=== PATIENT | female | born 1960 | race Caucasian/White ===

== ENCOUNTER → 2017-06-22 16:10 | Outpatient (CLI) | payer MEDICAID, SELFPAY ==
[2017-06-22 14:31] VITALS: BP 145/77; BMI 32.1
[2017-06-22 18:29] LABS: Hemoglobin A1c 6.3 % (4.2-6.3)
[2017-06-22 18:31] LABS: Anion Gap 10 (5-15); BUN 12 mg/dL (7-18); BUN/Creat Ratio 14.3 RATIO (10-20); Calcium,Total 9.3 mg/dL (8.5-10.1); Chloride 103 mmol/L (98-107); Creatinine, Serum 0.84 mg/dL (0.55-1.02); EST Glomerular Filtration Rate 75 mL/min (>60); Est Glom Filt Rate - Afr Amer 90 mL/min (>60); Glucose 93 mg/dL (70-110); Potassium 3.7 mmol/L (3.5-5.1); Sodium Level 141 mmol/L (136-145); T4 Free Direct 1.27 ng/dL (0.76-1.46); Thyroid Stim Hormone (TSH) 1.48 uIU/mL (0.358-3.74)
== END ==
PROVIDERS: Family Provider Internal Medicine; PCP Internal Medicine; Visit Provider Internal Medicine
DX: E11.9 Type 2 diabetes mellitus without complications (principal)
CPT/HCPCS: 36415; 80048; 83036; 84439; 84443

== ENCOUNTER 2021-05-14 14:04 | Inpatient (IN) | payer MEDICAID, SELFPAY ==
[2021-05-14] VITALS (9 sets, daily range): BP systolic 97–121; BP diastolic 63–80; PULSE 70–94; RESP 13–24; TEMP 36.1–37.2; O2SAT 96–100; BMI 32.5
--- NOTE | 2021-05-14 15:18 | EX.ED.GENINJ ---
HPI History of Present Illness Chief Complaint: Fall Detail of Chief Complaint: Down 13 steps 10 days ago. Informant: patient and spouse/S.O. Onset/Context/Timing Onset: Days Mechanism/Context: Blunt Injury Location of pain/injuries: Right lower leg, Right ankle, Right foot, Left arm, Left forearm, Left wrist, Left hand, Left lower leg, Left ankle and Left foot Quality of Pain: Sharp Current Severity: Severe Maximum Severity: Severe Associated Symptoms Associated Symptoms: Positive for Parasthesias, Weakness, Loss of function and Inability to ambulate; Negative for Loss of consciousness and Amnesia Narrative Narrative: 60 old female has had multiple brain surgeries in the past of brain aneurysm. States she fell at home down her steps when she stumbled over her 's chair lift. She was carrying towels. This occurred about 10 days ago. She had significant injuries to both lower extremities ankles and feet. But has not been seen until today. She is also complaining of pain to her left forearm, hand and wrist. Denies any LOC or head trauma. Denies any neck pain. She denies being on any blood thinners. Prior similar symptoms: No Recent Illness/Hospitalization: No PFSH PFS Medical History Anemia Anxiety and depression Arthritis Brain aneurysm Chronic back pain COPD (chronic obstructive pulmonary disease) Diabetes Fistula Hepatitis B Migraines Vitamin D deficiency Home Medications pioglitazone 15 mg PO DAILY 10/07/15 [History Last Taken Unknown] cholecalciferol (vitamin D3) 50 mcg (2,000 unit) capsule 2,000 unit PO ONCE 06/22/17 [History Last Taken Unknown] potassium PO 06/22/17 [History Last Taken Unknown] alprazolam 0.25 mg tablet 0.25 mg PO QDAY PRN #14 tab 06/23/17 [Rx Last Taken Unknown] Allergy/AdvReac Type Severity Reaction Status Date / Time ibuprofen Allergy Rash Verified 05/14/21 14:13 Sulfa (Sulfonamide Allergy Unknown Verified 05/14/21 14:13 Antibiotics) Family History (Updated 05/14/21 @ 17:[address] Gio Barrera, ) Mother Breast cancer Cancer bone Anxiety and depression Grandmother Breast cancer Hypertension Father Cancer oral Myocardial infarction Alcoholism Daughter Autism Daughter Bipolar 1 disorder Surgical History History of cholecystectomy Social History Smoking Status: Current every day smoker tobacco type: cigarettes Tobacco: How many years used: 40 alcohol intake: never substance use type: does not use what type of physical activity do you participate in: none ROS ROS ED ROS Narrative Dysuria. Review of Systems ROS Unobtainable: Denies due to encephalopathy Constitutional Constitutional ED: Denies fever(s) or subjective Eyes Eyes: Denies change in vision ENT ENT ED: Denies ear pain Cardiovascular Cardiovascular: Denies chest pain Respiratory/Chest Respiratory/Chest: Denies dyspnea Gastrointestinal Gastrointestinal: Denies abdominal pain, diarrhea, nausea or vomiting Genitourinary Genitourinary ED: Denies dysuria or hematuria Musculoskeletal Musculoskeletal: Reports arthralgias and myalgias Integumentary Denies rash Neurologic Neurologic: Denies headache(s) Psychiatric Psychiatric: Denies depression Endocrine Endocrinology: Denies polyuria Hematologic/Lymphatic Hematologic/Lymphatic: Denies easy bruising Allergic/Immunologic Allergic/Immunologic ED: Denies urticaria EXAM Physical Exam Narrative Exam Narrative: 6-year-old female vital signs stable afebrile. Lying in bed with at bedside. H EENT exam pupils are reactive light extra motions are intact. Face nontender. Dentition intact. Scalp nontender. C-spine nontender. Trachea midline. Lungs clear to auscultation bilaterally. Heart regular rhythm rate about 95 no murmur. Chest wall nontender. Abdomen soft nontender. No bruising. Pelvic girdle intact. Neither hip is shortened or rotated. Both lower extremities from the knees to the feet are swollen and tender. She has limited range of motion of both feet and ankles. She does have tight sensation. There is a large blister and breakdown of the skin over the anterior foot and ankle on the left. Skin is sloughing. Right upper extremity is nontender. Back is nontender. Left upper extremity shoulder is nontender but she is tender at the left forearm wrist and hand. Skins intact. Neurologically she is awake and alert. She is moving all 4 extremities but has limited range of motion with both lower extremities. Const Vital Signs: 05/14/21 14:06 05/14/21 17:17 05/14/21 17:36 Temperature 97 F L 98.9 F Temperature Source Temporal Temporal Pulse Rate 94 77 Pulse Rate [1 (Initial Baseline)] 77 Pulse Rate [2] 70 Pulse Rate [3] 72 Pulse Rate [4] 72 Respiratory Rate 18 15 Respiratory Rate [1 (Initial Baseline)] 15 Respiratory Rate [2] 14 Respiratory Rate [3] 21 H Respiratory Rate [4] 18 Respiratory Effort Normal Non-Labored Respiratory Depth Normal Respiratory Pattern Normal Blood Pressure 113/80 97/64 Blood Pressure [1 (Initial Baseline)] 119/63 Blood Pressure [2] 119/63 Blood Pressure [3] 101/67 Blood Pressure [4] 101/67 Blood Pressure Mean 91 75 Pulse Ox 97 99 Oxygen Delivery Method Room Air Room Air Oxygen Delivery Method [1 (Initial Baseline)] Nasal Cannula Oxygen Delivery Method [2] Nasal Cannula Oxygen Delivery Method [3] Nasal Cannula Oxygen Delivery Method [4] Nasal Cannula Oxygen Flow Rate (L/min) [1 (Initial Baseline)] 2 Oxygen Flow Rate (L/min) [2] 2 Oxygen Flow Rate (L/min) [3] 2 Oxygen Flow Rate (L/min) [4] 2 Fraction of Inspired Oxygen (FIO2) [1 (Initial Baseline)] 100 Fraction of Inspired Oxygen (FIO2) [2] 100 Fraction of Inspired Oxygen (FIO2) [3] 100 05/14/21 17:45 Temperature Temperature Source Pulse Rate 73 Pulse Rate [1 (Initial Baseline)] Pulse Rate [2] Pulse Rate [3] Pulse Rate [4] Respiratory Rate 13 Respiratory Rate [1 (Initial Baseline)] Respiratory Rate [2] Respiratory Rate [3] Respiratory Rate [4] Respiratory Effort Respiratory Depth Respiratory Pattern Blood Pressure 103/74 Blood Pressure [1 (Initial Baseline)] Blood Pressure [2] Blood Pressure [3] Blood Pressure [4] Blood Pressure Mean Pulse Ox 100 Oxygen Delivery Method Nasal Cannula Oxygen Delivery Method [1 (Initial Baseline)] Oxygen Delivery Method [2] Oxygen Delivery Method [3] Oxygen Delivery Method [4] Oxygen Flow Rate (L/min) [1 (Initial Baseline)] Oxygen Flow Rate (L/min) [2] Oxygen Flow Rate (L/min) [3] Oxygen Flow Rate (L/min) [4] Fraction of Inspired Oxygen (FIO2) [1 (Initial Baseline)] Fraction of Inspired Oxygen (FIO2) [2] Fraction of Inspired Oxygen (FIO2) [3] Positive well nourished, well developed and obese; Negative for cachectic, contractures or unkempt General Appearance ED: well developed and NAD; Negative for unkempt, cachectic or contractures Nutritional Appearance: obese; Negative for cachectic HEENT atraumatic; Negative for trauma or tenderness Eyes PERRL and EOMs intact bilaterally Neck full ROM General: Negative for tenderness Chest Wall inspection of chest normal and palpation of chest normal Resp normal respiratory effort and clear to auscultation bilaterally Auscultation: Negative for rales, rhonchi, wheezes or diminished lung sounds GI normal to inspection, nondistended, normoactive bowel sounds, non-tender, non-distended and no masses Inspection: Negative for abdominal distention Auscultation: normoactive bowel sounds Palpation: soft; Negative for tender, guarding or rebound tenderness present Back/Spine normal to inspection and no thoracic nor lumbar tenderness General Back: Negative for CVA tenderness Thoracic Spine / Upper Back: Negative for thoracic spinal tenderness Extremity Negative for normal to inspection or full ROM Extremity Narrative: Bilateral lower extremity edema with tenderness over the lower legs ankles and feet. Large blister of the left lower anterior foot and ankle. With breakdown of the skin. She does have tight sensation in her feet. Tenderness to the left forearm wrist and hand. With swelling also. General Extremety ED: Yes deformity, edema and tenderness General Extremity: deformity and edema Neuro oriented x3 and moves all extremities Sensorium / Orientation: alert, oriented to person, oriented to place and oriented to time; Negative for orientation impaired, lethargic or stuporous Psych mental status grossly normal and thought process normal Appearance: Negative for unkempt Skin no rashes or lesions noted, No no wounds and no jaundice Skin Narrative: Swollen lower extremities below the knees to the toes. Also left forearm. PROC Procedures Upper Extremity Splints Upper Extremity Splint: Orthoglass Splint Fabrication: Fabricated Location: Left Lower Extremity Splints Lower Extremity Splint: Orthoglass Splint Fabrication: Fabricated Location: Left Other Procedures Procedure(s): Conscious sedation using propofol. Total 70 mg given. Patient's vital signs remained stable the entire time as did her pulse ox while on oxygen. She came out of anesthetic well shortly after the procedure of splinting was finished. MDM MDM MDM Narrative Medical decision making narrative: Patient with significant trauma 10 days ago reportedly fell down 13 steps I suspect she may have a broken lower extremities and possibly her left upper extremity or wrist. Amazing that she has been at home for 10 days in this condition. She has significant breakdown of the skin over her left foot and ankle. She will be treated with IV morphine and Zofran multiple x-rays and screening labs are being obtained. For the patient's left distal radius and ulna fracture she was placed in well-padded short arm fiberglass splint by myself. For the left bimalleolar fracture of the ankle she is placed in a well-padded posterior splint. Again there is a severe pressure ulcer on the anterior aspect of the foot. Patient was consciously sedated before I put this on using propofol and tolerated procedure well. She awoke with no difficulties. Vital signs were stable the entire time. Lab Data Attestation: I reviewed the patient's lab results. Lab results narrative: CBC shows white count 9. Hemoglobin 13.5. Platelets are elevated 650,000. Electrolytes show a potassium of 3.4 gap of 4 normal BUN is 16 creatinine 0.8. Glucose 113. Labs: Laboratory Results - last 24 hr 05/14/21 05/14/21 14:36 14:36 WBC 9.7 RBC 4.76 Hgb 13.5 Hct 41.8 MCV 87.8 MCH 28.4 MCHC 32.3 RDW Std Deviation 42.6 RDW Coeff of Joleen 13.2 Plt Count 650 H MPV 8.5 Immature Gran % (Auto) 0.600 Neut % (Auto) 63.3 Lymph % (Auto) 24.2 Catron % (Auto) 10.1 H Eos % (Auto) 1.3 Baso % (Auto) 0.5 Absolute Neuts (auto) 6.2 Absolute Lymphs (auto) 2.36 Nucleated RBC % 0 Sodium 142 Potassium 3.4 L Chloride 109 H Carbon Dioxide 29.0 Anion Gap 4 L BUN 16 Creatinine 0.83 Estim Creat Clear Calc 70.09 Est GFR (MDRD) Af Amer 90 Est GFR (MDRD) Non-Af 74 BUN/Creatinine Ratio 19.2 Glucose 113 H Calcium 9.1 Radiography Diagnostic Testing: Clinical Impression(s) from Imaging Studies Chest X-Ray 05/14/21 15:50 IMPRESSION: No radiographic evidence of acute cardiopulmonary disease. at 1626 Reported and signed by: Florence Damon MD Electronically Signed: Florence Damon MD at 16:25 EST Tel , Service support , Foot X-Ray 05/14/21 15:50 IMPRESSION: Soft tissue injury of the left foot with small plantar foreign bodies. Fracture-subluxation of the ankle. at 1629 Reported and signed by: Florence Damon MD Electronically Signed: Florence Damon MD at 16:28 EST Tel , Service support , Foot X-Ray 05/14/21 15:50 IMPRESSION: Nondisplaced fracture of the right fourth metatarsal neck. Soft tissue swelling of the ankle and foot with a possible nondisplaced fracture of the distal fibula. at 1636 Reported and signed by: Florence Damon MD Electronically Signed: Florence Damon MD at 16:35 EST Tel , Service support , Forearm X-Ray 05/14/21 15:50 IMPRESSION: Comminuted and impacted fractures of the left distal radius and ulna with mild displacement. at 1638 Reported and signed by: Florence Damon MD Electronically Signed: Florence Damon MD at 16:36 EST Tel , Service support , Hand X-Ray 05/14/21 15:50 IMPRESSION: Suspect nondisplaced fracture of the left scaphoid. Acute fractures of the distal radius and ulna. at 1639 Reported and signed by: Florence Damon MD Electronically Signed: Florence Damon MD at 16:38 EST Tel , Service support , Pelvis X-Ray 05/14/21 15:50 IMPRESSION: No acute fracture or dislocation identified in the pelvis. at 1626 Reported and signed by: Florence Damon MD Electronically Signed: Florence Damon MD at 16:25 EST Tel , Service support , Tibia/Fibula X-Ray 05/14/21 15:50 IMPRESSION: Acute bimalleolar left ankle fracture-dislocation. Chronic distal tibial and fibular shaft fractures. at 1625 Reported and signed by: Florence Damon MD Electronically Signed: Florence Damon MD at 16:24 EST Tel , Service support , Tibia/Fibula X-Ray 05/14/21 15:50 IMPRESSION: No acute fracture or dislocation identified in the right leg. Soft tissue swelling of the ankle. at 1640 Reported and signed by: Florence Damon MD Electronically Signed: Florence Damon MD at 16:39 EST Tel , Service support , Wrist X-Ray 05/14/21 16:30 IMPRESSION: Acute, comminuted, impacted costochondral fracture of the distal radius with arthritic narrowing of the radial scaphoid joint space Acute comminuted multi fragmented distal ulnar fracture Diffuse soft tissue swelling Orthopedic surgery consultation recommended No demonstrated carpal or metacarpal fracture Electronically Signed: Ty Avitia MD at 17:34 EST , Service support , Ankle X-Ray 05/14/21 16:40 IMPRESSION: Acute, comminuted, osteochondral displaced fracture of the medial malleolus of the tibia. The distal fracture fragment maintains anatomic alignment with the talus, while the dorsal fracture fragment is displaced medially and dislocated anteriorly relative to the talus. I suspect there is also a posterior malleolar fracture which is minimally displaced Acute, angulated osteochondral fracture of the lateral malleolus Diffuse soft tissue swelling Orthopedic surgery consultation recommended No demonstrated talar, calcaneal, or navicular fracture Electronically Signed: Ty Avitia MD at 17:32 EST , Service support , Chest x-ray portable single view interpreted by myself and radiologist shows chronic changes no acute abnormality. Left ankle x-ray showed a bimalleolar fracture of the distal tibia and fibula. Left wrist x-ray shows a comminuted fracture of the distal radius and ulna with dorsal displacement. Left tib-fib x-ray shows the bimalleolar fracture. Right tib-fib x-ray 2 view shows no acute abnormality. Interpreted by myself. And the radiologist. Right foot x-ray nondisplaced fracture of the fourth metatarsal. Soft tissue swelling.Interpreted by both myself and the radiologist. Pelvis x-ray single view shows no acute abnormality. No fracture no dislocation. Interpreted both by myself and radiologist. Left radius and ulna x-ray shows the distal radius and ulna fractures. Interpreted by myself and the radiologist. All films were interpreted both by the radiologist and myself. Discharge Plan Triage Chief Complaint: Fall ED Provider: Edgar Vera Dx/Rx/DC Orders Clinical Impression: Fall, Fx. left wrist, Bimalleolar fracture of left ankle, Fracture of metatarsal bone of right foot, Blister of skin due to prolonged pressure Prescriptions: No Action potassium PO RF: 0 cholecalciferol (vitamin D3) 2,000 unit capsule 2,000 unit PO ONCE RF: 0 alprazolam 0.25 mg tablet 0.25 mg PO QDAY PRN (Reason: anxiety) Qty: 14 RF: 0 pioglitazone 15 MG tablet 15 mg PO DAILY RF: 0 Primary Care Provider: Care Physician,No Primary Referrals: Care Physician,No Primary [Primary Care Provider] - Disposition Disposition: Acute Care Hospital [facility]
[2021-05-14] MEDS: Ondansetron 4 MG/2 ML Vial IV (15:19)
[2021-05-14] MEDS: morphine 10 MG/ML Syringe IV (15:19)
[2021-05-14 15:31] LABS: Anion Gap 4 (5-15); BUN 16 mg/dL (7-18); BUN/Creat Ratio 19.2 RATIO (10-20); Calcium,Total 9.1 mg/dL (8.5-10.1); Chloride 109 mmol/L (98-107); Creatinine, Serum 0.83 mg/dL (0.55-1.02); EST Glomerular Filtration Rate 74 mL/min (>60); Est Glom Filt Rate - Afr Amer 90 mL/min (>60); Estimated Creatinine Clearance 70.09 ml/min; Glucose 113 mg/dL (74-106); Potassium 3.4 mmol/L (3.5-5.1); Sodium Level 142 mmol/L (136-145)
[2021-05-14 15:42] LABS: Absolute Lymphocyte Count 2.36 X10^3/uL (0.83-4.51); Absolute Neutrophil Count 6.2 X10^3/uL (2.0-7.7); Basophil# 0.05 X10^3/uL; Basophil% 0.5 % (0-1); Eosinophil# 0.13 X10^3/uL; Eosinophils% 1.3 % (0-5); Hematocrit 41.8 % (37-47); Hemoglobin 13.5 g/dL (12.0-15.0); Lymphocyte # 2.36 X10^3/ul (0.83-4.51); Lymphocyte % 24.2 % (19-41); Mean Corp Hgb Conc 32.3 g/dL (32-36); Mean Corpuscular Hgb 28.4 pg (27.0-32.0); Mean Corpuscular Volume 87.8 fL (81-99); Mean Platelet Vol. 8.5 fl (6.2-12.0); Monocyte# 0.98 X10^3/uL; Monocyte% 10.1 % (0-10); NRBC Flagged by Analyzer 0 % (0-5); Neutrophil # 6.16 X10^3/uL (2.7-7.7); Neutrophil % 63.3 % (47-70); Platelet Count 650 K/mm3 (150-450); RBC Distribution Width CV 13.2 % (11.6-14.6); RBC Distribution Width SD 42.6 fl (35.1-43.9); Red Blood Count 4.76 M/mm3 (4.2-5.4); White Blood Count 9.7 K/mm3 (4.4-11.0)
--- NOTE | 2021-05-14 15:50 | RAD_ITS ---
HISTORY: fall. TECHNIQUE: XR Tibia/Fibula 2 Views. # of images incl. paperwork: 3. COMPARISON: None. FINDINGS: BONES: Chronic healed remodeled fractures of the distal tibia and fibula with superimposed acute fractures fractures more distally with overlap and posterior displacement. JOINTS: Subluxation or dislocation of the ankle. Mild degenerative change of the knee. SOFT TISSUES: Soft tissue swelling of the leg. Joint effusion and prominent soft tissue swelling of the ankle. RAD/Tibia & Fibula 2 Views IMPRESSION: Acute bimalleolar left ankle fracture-dislocation. Chronic distal tibial and fibular shaft fractures. at 1625 Reported and signed by: Florence Damon MD Electronically Signed: Florence Damon MD at 16:24 EST Tel , Service support ,
--- NOTE | 2021-05-14 15:50 | RAD_ITS ---
HISTORY: trauma. TECHNIQUE: XR Chest 1 View. # of images incl. paperwork: 2. COMPARISON: None. FINDINGS: CARDIOMEDIASTINAL STRUCTURES: Cardiac silhouette not enlarged. Mediastinal contour unremarkable with mild calcification of the aortic knob. LUNGS: Coarse chronic appearing interstitial markings in the lungs. PLEURA: No pleural effusion or pneumothorax. OSSEOUS STRUCTURES: Degenerative change. RAD/Chest 1 View (Portable) IMPRESSION: No radiographic evidence of acute cardiopulmonary disease. at 1626 Reported and signed by: Florence Damon MD Electronically Signed: Florence Damon MD at 16:25 EST Tel , Service support ,
--- NOTE | 2021-05-14 15:50 | RAD_ITS ---
HISTORY: trauma, fell down 13 steps 10 days ago with pain and deformity to left leg and foot. TECHNIQUE: XR Foot Min 3 Views. Number of images including paperwork: 3. COMPARISON: None. FINDINGS: OSSEOUS STRUCTURES: Fractures of the distal tibia and fibula with displacement. No acute fracture identified in the foot. Generalized osteopenia. Subchondral cyst of the fifth middle phalanx. JOINT SPACES: Dislocation of the ankle. Mild degenerative changes of the foot. SOFT TISSUES: Dorsal soft tissue injury with swelling. Punctate densities in the plantar soft tissues, suspicious for small foreign bodies RAD/Foot min 3 Views IMPRESSION: Soft tissue injury of the left foot with small plantar foreign bodies. Fracture-subluxation of the ankle. at 7201 Reported and signed by: Florence Damon MD Electronically Signed: Florence Damon MD at 16:28 EST Tel , Service support ,
--- NOTE | 2021-05-14 15:50 | RAD_ITS ---
HISTORY: trauma. TECHNIQUE: XR Hand Min 3 Views. # of images incl. paperwork: 3. COMPARISON: None. FINDINGS: BONES: Impacted intra-articular fractures of the distal radius and ulna with mild posterior displacement. Small linear lucency at the mid scaphoid. JOINTS: No dislocation. Degenerative changes. SOFT TISSUES: Soft tissue swelling of the wrist and hand. RAD/Hand Min 3 Views IMPRESSION: Suspect nondisplaced fracture of the left scaphoid. Acute fractures of the distal radius and ulna. at 1639 Reported and signed by: Florence Damon MD Electronically Signed: Florence Damon MD at 16:38 EST Tel , Service support ,
--- NOTE | 2021-05-14 15:50 | RAD_ITS ---
HISTORY: trauma. TECHNIQUE: AP Pelvis: 1 view. # of images incl. paperwork: 1. COMPARISON: None. FINDINGS: PELVIC BONES: No acute fracture identified. Note that overlapping bowel shadows may obscure detail. Mineralization unremarkable. HIPS: Alignment within normal limits without dislocation. Joint spaces maintained. RAD/Pelvis 1 or 2 Views IMPRESSION: No acute fracture or dislocation identified in the pelvis. at 1626 Reported and signed by: Florence Damon MD Electronically Signed: Florence Damon MD at 16:25 EST Tel , Service support ,
--- NOTE | 2021-05-14 15:50 | RAD_ITS ---
HISTORY: fall. TECHNIQUE: XR Tibia/Fibula 2 Views. # of images incl. paperwork: 2. COMPARISON: None. FINDINGS: BONES: No acute fracture identified. Mineralization unremarkable. JOINTS: No dislocation. Degenerative changes of the knee and ankle. SOFT TISSUES: Soft tissue swelling of the ankle. RAD/Tibia & Fibula 2 Views IMPRESSION: No acute fracture or dislocation identified in the right leg. Soft tissue swelling of the ankle. at 1640 Reported and signed by: Florence Damon MD Electronically Signed: Florence Damon MD at 16:39 EST Tel , Service support ,
--- NOTE | 2021-05-14 15:50 | RAD_ITS ---
HISTORY: trauma. TECHNIQUE: XR Forearm 2 Views. Number of images including paperwork: 2. COMPARISON: None. FINDINGS: OSSEOUS STRUCTURES: Impacted intra-articular fracture of the distal radius with mild displacement. Impacted intra-articular fracture of the distal ulna with mild displacement. Small scaphoid cyst noted. JOINT SPACES: No dislocation. SOFT TISSUES: Overlying soft tissue swelling. RAD/Forearm 2 Views IMPRESSION: Comminuted and impacted fractures of the left distal radius and ulna with mild displacement. at 1638 Reported and signed by: Florence Damon MD Electronically Signed: Florence Damon MD at 16:36 EST Tel , Service support ,
--- NOTE | 2021-05-14 15:50 | RAD_ITS ---
HISTORY: trauma. TECHNIQUE: XR Foot Min 3 Views. Number of images including paperwork: 3. COMPARISON: None. FINDINGS: OSSEOUS STRUCTURES: Mild angulation of the fourth metatarsal neck. Question nondisplaced fracture the distal fibula. JOINT SPACES: Mild degenerative change. No dislocation. SOFT TISSUES: Marked soft tissue swelling of the ankle and foot. RAD/Foot min 3 Views IMPRESSION: Nondisplaced fracture of the right fourth metatarsal neck. Soft tissue swelling of the ankle and foot with a possible nondisplaced fracture of the distal fibula. at 1636 Reported and signed by: Florence Damon MD Electronically Signed: Florence Damon MD at 16:35 EST Tel , Service support ,
--- NOTE | 2021-05-14 16:30 | RAD_ITS ---
STUDY: X-RAY - LEFT WRIST REASON FOR EXAM: Female, 60 years old. Acute pain after trauma TECHNIQUE: 3 view(s) of the wrist were obtained. COMPARISON: None. FINDINGS: Acute, comminuted, impacted osteochondral fracture of the distal radius with associated soft tissue swelling. There is also a comminuted multi fragmented fracture of the distal ulna with soft tissue swelling. There is degenerative narrowing of the radial scaphoid joint space but no demonstrated intracarpal arthrosis or evidence of carpal or metacarpal fracture. RAD/Wrist min 3 Views IMPRESSION: Acute, comminuted, impacted costochondral fracture of the distal radius with arthritic narrowing of the radial scaphoid joint space Acute comminuted multi fragmented distal ulnar fracture Diffuse soft tissue swelling Orthopedic surgery consultation recommended No demonstrated carpal or metacarpal fracture Electronically Signed: Ty Avitia MD at 17:34 EST , Service support ,
--- NOTE | 2021-05-14 16:40 | RAD_ITS ---
STUDY: X-RAY - LEFT ANKLE REASON FOR EXAM: Female, 60 years old. Acute pain after trauma TECHNIQUE: 3 view(s) of the ankle. COMPARISON: None. FINDINGS: Bones are demineralized. There is an old healed fracture in the distal fibula. There are acute, comminuted, displaced and angulated fractures in the distal tibia and fibula. There is an acute osteochondral fracture of the medial malleolus of the distal tibia. The distal fracture fragment maintains anatomic alignment with the talus but the proximal fracture fragment is displaced nearly by one width of the medial malleolus. There is associated anterior and medial dislocation of the distal tibia relative to the calcaneus. There is an acute, angulated osteochondral fracture of the lateral malleolus. The distal fracture fragment maintains anatomic alignment with the talus and there is valgus angulation at the fracture site. Extensive associated soft tissue swelling No demonstrated calcaneal, navicular, or talar fracture. Orthopedic surgery consultation recommended RAD/Ankle min 3 Views IMPRESSION: Acute, comminuted, osteochondral displaced fracture of the medial malleolus of the tibia. The distal fracture fragment maintains anatomic alignment with the talus, while the dorsal fracture fragment is displaced medially and dislocated anteriorly relative to the talus. I suspect there is also a posterior malleolar fracture which is minimally displaced Acute, angulated osteochondral fracture of the lateral malleolus Diffuse soft tissue swelling Orthopedic surgery consultation recommended No demonstrated talar, calcaneal, or navicular fracture Electronically Signed: Ty Avitia MD at 17:32 EST , Service support ,
--- NOTE | 2021-05-14 16:44 | NURSING ---
DR DEB WOODARD
--- NOTE | 2021-05-14 17:14 | CT_ITS ---
STUDY: CT - LEFT TIBIA AND FIBULA REASON FOR EXAM: Female, 60 years old. left ankle fracture RADIATION DOSAGE (If Supplied By Facility): CTDIvol = ( 15.35 ) mGy, DLP = ( 871.86 ) mGycm TECHNIQUE: Transaxial CT imaging of the lower extremity was performed without. Sagittal and coronal images were reconstructed. Individualized dose optimization techniques were used for this CT. COMPARISON: Left ankle x-ray dated May 14, 2021 FINDINGS: An acute oblique fracture extending to the articular surface is present in the posterior tibial malleolus with mild displacement. An acute mildly comminuted fracture of the distal one third fibular shaft and lateral malleolus is also present. There is a healed fracture deformity in the distal one third tibial shaft region as well. An acute horizontal fractures present through the origin of the medial malleolus with mild displacement. The talus is also posteriorly subluxed by 1.6 cm. No acute process of the knee joint. A small loose body is seen near the medial tibial spine. Normal visualized talus and calcaneus. The visualized subtalar, talonavicular, calcaneocuboid and tarsal articulations are normal. Mild to moderate soft tissue swelling is present in the calf, ankle, and foot CT/Extremity Lower WITH Contrast IMPRESSION: 1. Acute posterior tibial malleolus fracture 2. Mild posterior subluxation of the talus 3. Comminuted fracture the distal one third fibula/lateral malleolus 4. Acute displaced fracture of the medial malleolus Electronically Signed: Jesse Johnson MD at 19:17 EST , Service support ,
--- NOTE | 2021-05-14 17:15 | PCM.HP.STD ---
HPI - General HPI Narrative SALAZAR ROTHMAN, is a 60 F who presents 10 days after a fall. Patient was going down her stairs and tripped over the stair lift and then landed on her ankle. Patient immediately recognized that she injury and. She was hoping it would get better in a day or 2 did not present until 10 days out. In the emergency room, patient was found to have distal left ulna and radius as well as a scaphoid fracture the stay bimalleolar ankle fracture on the left. Dr. Pace was contacted through the emergency room and was seen the patient in consultation. Patient stated that her ankle had very profound swelling and since then it has significantly retracted and now she has sloughed skin on the dorsum of her left foot. She denies laying on that part of her foot while she was convalescing. [facility] Medical History Anemia Anxiety and depression Arthritis Brain aneurysm Chronic back pain COPD (chronic obstructive pulmonary disease) Diabetes Fistula Hepatitis B Migraines Vitamin D deficiency Home Medications pioglitazone 15 mg PO DAILY 10/07/15 [History Last Taken Unknown] cholecalciferol (vitamin D3) 50 mcg (2,000 unit) capsule 2,000 unit PO ONCE 06/22/17 [History Last Taken Unknown] potassium PO 06/22/17 [History Last Taken Unknown] alprazolam 0.25 mg tablet 0.25 mg PO QDAY PRN #14 tab 06/23/17 [Rx Last Taken Unknown] Allergy/AdvReac Type Severity Reaction Status Date / Time ibuprofen Allergy Rash Verified 05/14/21 14:13 Sulfa (Sulfonamide Allergy Unknown Verified 05/14/21 14:13 Antibiotics) Family History (Updated 05/14/21 @ 17:[address] Gio Barrera DO) Mother Breast cancer Cancer bone Anxiety and depression Grandmother Breast cancer Hypertension Father Cancer oral Myocardial infarction Alcoholism Daughter Autism Daughter Bipolar 1 disorder Surgical History History of cholecystectomy Social History Smoking Status: Current every day smoker tobacco type: cigarettes Tobacco: How many years used: 40 alcohol intake: never substance use type: does not use what type of physical activity do you participate in: none ROS ROS Narrative Does complain of some subjective chills. Denies any contacts with anyone with COVID-19. States that she has memory issues and does not think properly at times. All review of systems were negative except as mentioned above in the history of present illness and the other review of systems. Vital Signs Vital Signs Vital Signs: 05/14/21 14:06 Temperature 36.1 C L Temperature Source Temporal Pulse Rate 94 Respiratory Rate 18 Respiratory Effort Normal Non-Labored Respiratory Depth Normal Respiratory Pattern Normal Blood Pressure 113/80 Blood Pressure Mean 91 Pulse Ox 97 Oxygen Delivery Method Room Air Weight Weight: 94.2 kg Body Mass Index (BMI) 32.5 Physical Exam Const alert General Appearance: cooperative HEENT normocephalic and head/scalp atraumatic Eyes PERRL and EOMs intact bilaterally Neck no lymphadenopathy Resp normal respiratory effort, no retractions, no use of accessory muscles and clear to auscultation bilaterally Cardio regular rate, regular rhythm, S1 normal heart sound and S2 normal heart sound GI normal to inspection, nondistended, normoactive bowel sounds, soft to palpation, non-tender, non-distended and hepatosplenomegaly Extremity Extremity Narrative: Marked angulation of the left ankle as well as deformity of the left wrist. Skin Skin Narrative: Marked sloughed skin on the anterior foot extending from the proximal toes up until just near the ankle itself. Also slight skin on the medial ankle as well. Neuro Neuro Narrative: Muscle strength 5-5 in the right lower in the right lower extremities. Psych Mood & Affect: anxious Results Lab / Micro Data Attestation: I reviewed the patient's lab results. Result Diagrams: 05/14/21 14:36 05/14/21 14:36 Labs: Laboratory Results - last 24 hr 05/14/21 14:36: WBC 9.7, RBC 4.76, Hgb 13.5, Hct 41.8, MCV 87.8, MCH 28.4, MCHC 32.3, RDW Std Deviation 42.6, RDW Coeff of Joleen 13.2, Plt Count 650 H, MPV 8.5, Immature Gran % (Auto) 0.600, Neut % (Auto) 63.3, Lymph % (Auto) 24.2, Mccreary % (Auto) 10.1 H, Eos % (Auto) 1.3, Baso % (Auto) 0.5, Absolute Neuts (auto) 6.2, Absolute Lymphs (auto) 2.36, Nucleated RBC % 0 05/14/21 14:36: Sodium 142, Potassium 3.4 L, Chloride 109 H, Carbon Dioxide 29.0, Anion Gap 4 L, BUN 16, Creatinine 0.83, Estim Creat Clear Calc 70.09, Est GFR (MDRD) Af Amer 90, Est GFR (MDRD) Non-Af 74, BUN/Creatinine Ratio 19.2, Glucose 113 H, Calcium 9.1 Radiology Impression Chest X-Ray 05/14/21 15:50 IMPRESSION: No radiographic evidence of acute cardiopulmonary disease. at 1626 Reported and signed by: Florence Damon MD Electronically Signed: Florence Damon MD at 16:25 EST Tel , Service support , Foot X-Ray 05/14/21 15:50 IMPRESSION: Soft tissue injury of the left foot with small plantar foreign bodies. Fracture-subluxation of the ankle. at 1624 Reported and signed by: Florence Damon MD Electronically Signed: Florence Damon MD at 16:28 EST Tel , Service support , Foot X-Ray 05/14/21 15:50 IMPRESSION: Nondisplaced fracture of the right fourth metatarsal neck. Soft tissue swelling of the ankle and foot with a possible nondisplaced fracture of the distal fibula. at 1636 Reported and signed by: Florence Damon MD Electronically Signed: Florence Damon MD at 16:35 EST Tel , Service support , Forearm X-Ray 05/14/21 15:50 IMPRESSION: Comminuted and impacted fractures of the left distal radius and ulna with mild displacement. at 1638 Reported and signed by: Florence Damon MD Electronically Signed: Florence Damon MD at 16:36 EST Tel , Service support , Hand X-Ray 05/14/21 15:50 IMPRESSION: Suspect nondisplaced fracture of the left scaphoid. Acute fractures of the distal radius and ulna. at 1630 Reported and signed by: Florence Damon MD Electronically Signed: Florence Damon MD at 16:38 EST Tel , Service support , Pelvis X-Ray 05/14/21 15:50 IMPRESSION: No acute fracture or dislocation identified in the pelvis. at 1624 Reported and signed by: Florence Damon MD Electronically Signed: Florence Damon MD at 16:25 EST Tel , Service support , Tibia/Fibula X-Ray 05/14/21 15:50 IMPRESSION: Acute bimalleolar left ankle fracture-dislocation. Chronic distal tibial and fibular shaft fractures. at 162 Reported and signed by: Florence Damon MD Electronically Signed: Florence Damon MD at 16:24 EST Tel , Service support , Tibia/Fibula X-Ray 05/14/21 15:50 IMPRESSION: No acute fracture or dislocation identified in the right leg. Soft tissue swelling of the ankle. at 1640 Reported and signed by: Florence Damon MD Electronically Signed: Florence Damon MD at 16:39 EST Tel , Service support , Assessment & Plan Assessment/Plan (1) Closed left ankle fracture: QUALIFIERS: Encounter type: initial encounter Qualified Code(s): S82.892A - Other fracture of left lower leg, initial encounter for closed fracture (2) Left wrist fracture: QUALIFIERS: Encounter type: initial encounter Fracture type: closed Qualified Code(s): S62.102A - Fracture of unspecified carpal bone, left wrist, initial encounter for closed fracture (3) Scaphoid fracture, wrist, closed: QUALIFIERS: Encounter type: initial encounter Scaphoid bone location: unspecified portion of scaphoid Fracture alignment: nondisplaced Laterality: left Qualified Code(s): S62.002A - Unspecified fracture of navicular [scaphoid] bone of left wrist, initial encounter for closed fracture PLAN: 1. Left ankle fracture Bi or trimalleolar To be reduced and splinted in the emergency room Dr. Pace has been notified by the emergency room and will be seeing the patient in consultation Nonweightbearing Pain control with oxycodone and as well as hydromorphone for breakthrough pain Check a 25-hydroxy vitamin D level Ascitic patient will require surgery. Patient medically optimized to proceed with surgery. An NQSIP performed and patient is going to be lower than average risk for serious complications. I do suspect the patient is going to require a custodial facility as she will be nonweightbearing in her left wrist and leg for several weeks. 2. Left wrist fracture Left scaphoid, radius and ulnar fractures Orthopedics on consult 3. Denuded skin On the dorsum of the patient's left foot is very circumscribed area of denuded skin. Patient noted that her foot and ankle were exquisitely swollen and that has since retracted since. This could be just related with all the swelling that she did have but it seems very localized. Patient denies laying on her foot to suggest that she had a pressure ulcer. Consult wound care for further management I am concerned as it is malodorous but likely because the patient has not bathed in about a week but that we will check a CAT scan to make sure that she does not have any infectious concerns. 4. Diabetes mellitus type 2 sliding scale insulin 5. VTE prophylaxis with enoxaparin 6.Disposition: TBD. Will need SNF when medically and surgically ready. 7. H/O brain aneurysm s/p coiling stable. 8. Covid vaccine: Patient is not vaccinated. Stated that she just does not go out. Strongly recommended that she get the Covid vaccine lasting as she would need on top of everything that she is dealing with COVID-19. Did inform her that COVID-19 does not bend her from getting COVID-19 but makes it less severe. Agreeable to getting it. I recommended vaccine. I told her that she would need follow-up injection in about a month's time. Patient was experiencing some subjective chills will check a rapid COVID-19 first and foremost for administering. Charges/Coding Visit Charges Inpatient E&M: 51914 Init Hosp L3
--- NOTE | 2021-05-14 17:24 | CM.ED ---
SW Note Referral Source: Case Find Referral Reason: No Primary Care Physician (PCP) SW reviewed chart and noted that patient has no PCP. SW provided patient with list of [facility] and [facility] Physician List for reference. SW also provided patient with handout ?Where to go When?. No other issues or concerns voiced at this time. SW remains available for any additional needs. Plan: Provided patient with PCP information Gita CHRISTOPHER
[2021-05-14] MEDS: morphine 8 MG/ML Syringe 6 MG IV (17:35)
[2021-05-14] MEDS: Propofol 200 MG/20 ML Vial IV BOLUS (17:36)
--- NOTE | 2021-05-14 17:59 | NURSING ---
MED SURG JOPPSHAILESH LT ANKLE BIMALLEOLAR FX, PRESSURE SORE, LT WRIST FX
--- NOTE | 2021-05-14 18:12 | RAD_ITS ---
STUDY: X-RAY - RIGHT ANKLE REASON FOR EXAM: Female, 60 years old. fall TECHNIQUE: 3 view(s) of the ankle. COMPARISON: None. FINDINGS: Mild to moderate soft tissue swelling is present around the ankle. Cortical thickening seen at the periphery of the lateral malleolus is likely due to old trauma. No visualized acute fracture. Normal visualized distal tibia and fibula. Normal medial and lateral malleoli. Normal tibiotalar articulation and ankle mortise. Normal visualized talus and calcaneus. Navicular os noted. The visualized subtalar, talonavicular, calcaneocuboid and tarsal articulations are normal. RAD/Ankle min 3 Views IMPRESSION: 1. Mild to moderate soft tissue swelling is present around the ankle. Cortical thickening seen at the periphery of the lateral malleolus is likely due to old trauma. No visualized acute fracture. Electronically Signed: Jesse Johnson MD at 19:13 EST , Service support ,
[2021-05-14] MEDS: Contrast Allergy Safety Check IV (20:04)
[2021-05-14] MEDS: oxyCODONE 5 MG Tablet 10 MG PO (20:23)
[2021-05-14] MEDS: Nystatin Powder 15gm Bottle 1 APPLIC TOPICAL (22:47)
[2021-05-14] MEDS: Menthol/Lanolin/Calamine/Znox 113 GM Tube 1 APPLIC TOPICAL (22:47)
[2021-05-14 23:06] LABS: Bedside Glucose 104 mg/dL (70-110)
[2021-05-15 00:47] VITALS: BP 124/62; PULSE 78; RESP 16; TEMP 36.4; O2SAT 97
[2021-05-15] MEDS: oxyCODONE 5 MG Tablet 10 MG PO ×5 (00:49→22:05)
[2021-05-15 01:03] LABS: Bacteria 0 SEEN /hpf (None Seen); Mucous, Urine 0 SEEN /hpf (<or=2+); Red Blood Cells-Urine 0 SEEN /hpf (0-5); Squamous Epithelial Cells - UA 0 SEEN /hpf (5-10); White Blood Cells 0 SEEN /hpf (0-5)
[2021-05-15 01:16] LABS: Color, Urine Yellow (Yellow); Glucose, Dipstick Normal (Normal); Ketone-Dipstick Negative (Negative); Leukocyte Esterase-Dipstick Negative /ul (Negative); Nitrite-Dipstick Negative (Negative); Occult Blood-Urine Negative /ul (Negative); Protein-Dipstick 15 mg/dl (Negative); Specific Gravity, Urine 1.015 (1.002-1.030); Urine Bilirubin Dipstick Negative (Negative); Urine Clarity Clear (Clear); Urine Urobilinogen Normal (Normal); Urine pH 6.5 (5.0 - 8.0)
--- NOTE | 2021-05-15 01:35 | PCS.PANDOC ---
PANDEMIC DOCUMENTATION INITIATED: Date: 05/14/2021 Time: 1849
[2021-05-15 06:23] VITALS: BP 112/59; PULSE 80; RESP 16; TEMP 36.7; O2SAT 94
[2021-05-15 07:15] LABS: Bedside Glucose 90 mg/dL (70-110)
--- NOTE | 2021-05-15 07:51 | CON.PCM.OR_ITS ---
HPI Consult Data Date of Consult: 05/15/21 HPI Narrative HPI Narrative: SALAZAR ROTHMAN, is a 60 F who presents after a fall down 13 steps 11 days ago. She came into the ED last night. She had her trimalleolar ankle fracture reduced and splinted and was noted to have large fracture blisters anteriorly and medially. She was also noted to have an impacted left d istal radius and ulnas fracture. She was admitted to [facility] and ortho was consulted. At the time of my consult, she reported pain in the left ankle and left wrist. She denied N/T/P or F/C/ N/V. [facility] Medical History Anemia Anxiety and depression Arthritis Brain aneurysm Chronic back pain COPD (chronic obstructive pulmonary disease) Diabetes Fistula Hepatitis B Migraines Smoker Vitamin D deficiency Home Medications NK 05/14/21 [History Last Taken Unknown] Allergy/AdvReac Type Severity Reaction Status Date / Time ibuprofen Allergy Rash Verified 05/14/21 19:51 Sulfa (Sulfonamide Allergy Unknown Verified 05/14/21 19:51 Antibiotics) Family History (Updated 05/14/21 @ 17:[address] Gio Barrera, DO) Mother Breast cancer Cancer bone Anxiety and depression Grandmother Breast cancer Hypertension Father Cancer oral Myocardial infarction Alcoholism Daughter Autism Daughter Bipolar 1 disorder Surgical History History of cholecystectomy Social History Smoking Status: Current every day smoker tobacco type: cigarettes Tobacco: How many years used: 40 alcohol intake: never substance use type: does not use what type of physical activity do you participate in: none Vital Signs Vital Signs Vital Signs: 05/14/21 14:06 05/14/21 17:17 05/14/21 17:36 Temperature 97 F L 98.9 F Temperature Source Temporal Temporal Pulse Rate 94 77 Pulse Rate [1 (Initial Baseline)] 77 Pulse Rate [2] 70 Pulse Rate [3] 72 Pulse Rate [4] 72 Respiratory Rate 18 15 Respiratory Rate [1 (Initial Baseline)] 15 Respiratory Rate [2] 14 Respiratory Rate [3] 21 H Respiratory Rate [4] 18 Respiratory Effort Normal Non-Labored Respiratory Depth Normal Respiratory Pattern Normal Blood Pressure 113/80 97/64 Blood Pressure [1 (Initial Baseline)] 119/63 Blood Pressure [2] 119/63 Blood Pressure [3] 101/67 Blood Pressure [4] 101/67 Blood Pressure Mean 91 75 Blood Pressure Source Blood Pressure Position Blood Pressure Location Pulse Ox 97 99 Oxygen Delivery Method Room Air Room Air Oxygen Delivery Method [1 (Initial Baseline)] Nasal Cannula Oxygen Delivery Method [2] Nasal Cannula Oxygen Delivery Method [3] Nasal Cannula Oxygen Delivery Method [4] Nasal Cannula Oxygen Flow Rate (L/min) Oxygen Flow Rate (L/min) [1 (Initial Baseline)] 2 Oxygen Flow Rate (L/min) [2] 2 Oxygen Flow Rate (L/min) [3] 2 Oxygen Flow Rate (L/min) [4] 2 Fraction of Inspired Oxygen (FIO2) [1 (Initial Baseline)] 100 Fraction of Inspired Oxygen (FIO2) [2] 100 Fraction of Inspired Oxygen (FIO2) [3] 100 05/14/21 17:45 05/14/21 17:48 05/14/21 17:50 Temperature 97 F L Temperature Source Temporal Pulse Rate 73 79 75 Pulse Rate [1 (Initial Baseline)] Pulse Rate [2] Pulse Rate [3] Pulse Rate [4] Respiratory Rate 13 18 24 H Respiratory Rate [1 (Initial Baseline)] Respiratory Rate [2] Respiratory Rate [3] Respiratory Rate [4] Respiratory Effort Respiratory Depth Respiratory Pattern Blood Pressure 103/74 103/74 120/69 Blood Pressure [1 (Initial Baseline)] Blood Pressure [2] Blood Pressure [3] Blood Pressure [4] Blood Pressure Mean 83 Blood Pressure Source Blood Pressure Position Blood Pressure Location Pulse Ox 100 100 100 Oxygen Delivery Method Nasal Cannula Nasal Cannula Room Air Oxygen Delivery Method [1 (Initial Baseline)] Oxygen Delivery Method [2] Oxygen Delivery Method [3] Oxygen Delivery Method [4] Oxygen Flow Rate (L/min) 2 Oxygen Flow Rate (L/min) [1 (Initial Baseline)] Oxygen Flow Rate (L/min) [2] Oxygen Flow Rate (L/min) [3] Oxygen Flow Rate (L/min) [4] Fraction of Inspired Oxygen (FIO2) [1 (Initial Baseline)] Fraction of Inspired Oxygen (FIO2) [2] Fraction of Inspired Oxygen (FIO2) [3] 05/14/21 17:55 05/14/21 19:23 05/14/21 19:45 Temperature 98.0 F Temperature Source Oral Pulse Rate 75 73 Pulse Rate [1 (Initial Baseline)] Pulse Rate [2] Pulse Rate [3] Pulse Rate [4] Respiratory Rate 14 18 Respiratory Rate [1 (Initial Baseline)] Respiratory Rate [2] Respiratory Rate [3] Respiratory Rate [4] Respiratory Effort Normal Non-Labored Respiratory Depth Normal Respiratory Pattern Normal Blood Pressure 116/68 121/72 H Blood Pressure [1 (Initial Baseline)] Blood Pressure [2] Blood Pressure [3] Blood Pressure [4] Blood Pressure Mean 88 Blood Pressure Source Monitor Blood Pressure Position Semi-Fowlers Blood Pressure Location Right Arm Pulse Ox 100 99 Oxygen Delivery Method Nasal Cannula Nasal Cannula Nasal Cannula Oxygen Delivery Method [1 (Initial Baseline)] Oxygen Delivery Method [2] Oxygen Delivery Method [3] Oxygen Delivery Method [4] Oxygen Flow Rate (L/min) 2 2 2 Oxygen Flow Rate (L/min) [1 (Initial Baseline)] Oxygen Flow Rate (L/min) [2] Oxygen Flow Rate (L/min) [3] Oxygen Flow Rate (L/min) [4] Fraction of Inspired Oxygen (FIO2) [1 (Initial Baseline)] Fraction of Inspired Oxygen (FIO2) [2] Fraction of Inspired Oxygen (FIO2) [3] 05/15/21 00:47 05/15/21 06:23 Temperature 97.5 F L 98.1 F Temperature Source Oral Oral Pulse Rate 78 80 Pulse Rate [1 (Initial Baseline)] Pulse Rate [2] Pulse Rate [3] Pulse Rate [4] Respiratory Rate 16 16 Respiratory Rate [1 (Initial Baseline)] Respiratory Rate [2] Respiratory Rate [3] Respiratory Rate [4] Respiratory Effort Respiratory Depth Respiratory Pattern Blood Pressure 124/62 H 112/59 L Blood Pressure [1 (Initial Baseline)] Blood Pressure [2] Blood Pressure [3] Blood Pressure [4] Blood Pressure Mean 82 76 Blood Pressure Source Monitor Monitor Blood Pressure Position Semi-Fowlers Semi-Fowlers Blood Pressure Location Right Arm Right Arm Pulse Ox 97 94 Oxygen Delivery Method Room Air Room Air Oxygen Delivery Method [1 (Initial Baseline)] Oxygen Delivery Method [2] Oxygen Delivery Method [3] Oxygen Delivery Method [4] Oxygen Flow Rate (L/min) Oxygen Flow Rate (L/min) [1 (Initial Baseline)] Oxygen Flow Rate (L/min) [2] Oxygen Flow Rate (L/min) [3] Oxygen Flow Rate (L/min) [4] Fraction of Inspired Oxygen (FIO2) [1 (Initial Baseline)] Fraction of Inspired Oxygen (FIO2) [2] Fraction of Inspired Oxygen (FIO2) [3] Weight Weight: 207 lb 14.334 oz Body Mass Index (BMI) 32.5 Physical Exam Const alert and oriented x3 General Appearance: cooperative Extremity normal capillary refill, no clubbing, cyanosis or edema and no calf tenderness Extremity Narrative: She has a trimalleolar fracture of her left ankle and a lef t distal radius and ulna fracture Skin Skin Narrative: She has non-infected appearing fracture blisters medially and anteriorly on the ankle. I dressed these with Adaptic and gauze before re- wrapping and splinting Neuro no focal motor deficits and no sensory deficits noted Lab / Micro Data Result Diagrams: 05/14/21 14:36 05/14/21 14:36 Labs: Laboratory Results - last 24 hr 05/14/21 14:36: WBC 9.7, RBC 4.76, Hgb 13.5, Hct 41.8, MCV 87.8, MCH 28.4, MCHC 32.3, RDW Std Deviation 42.6, RDW Coeff of Joleen 13.2, Plt Count 650 H, MPV 8.5, Immature Gran % (Auto) 0.600, Neut % (Auto) 63.3, Lymph % (Auto) 24.2, [place] % (Auto) 10.1 H, Eos % (Auto) 1.3, Baso % (Auto) 0.5, Absolute Neuts (auto) 6.2, Absolute Lymphs (auto) 2.36, Nucleated RBC % 0 05/14/21 14:36: Sodium 142, Potassium 3.4 L, Chloride 109 H, Carbon Dioxide 29.0, Anion Gap 4 L, BUN 16, Creatinine 0.83, Estim Creat Clear Calc 70.09, Est GFR (MDRD) Af Amer 90, Est GFR (MDRD) Non-Af 74, BUN/Creatinine Ratio 19.2, Glucose 113 H, Calcium 9.1 05/14/21 22:59: POC Glucose 104 05/15/21 00:45: Urine Color Yellow, Urine Clarity Clear, Urine pH 6.5, Ur Specific [place] 1.015, Urine Protein 15 H, Urine Glucose (UA) Normal, Urine Ketones Negative, Urine Occult Blood Negative, Urine Nitrite Negative, Urine Bilirubin Negative, Urine Urobilinogen Normal, Ur Leukocyte Esterase Negative, Urine RBC 0 SEEN, Urine WBC 0 SEEN, Ur Squamous Epith Cells 0 SEEN, Urine Bacteria 0 SEEN, Urine Mucus 0 SEEN 05/15/21 06:20: POC Glucose 90 Micro: Microbiology 05/14/21 17:17 Nasal Secretion SARS-CoV-2 Antigen (Rapid) - Final Radiology Impression Chest X-Ray 05/14/21 15:50 IMPRESSION: No radiographic evidence of acute cardiopulmonary disease. at 1626 Reported and signed by: Florence Damon MD Electronically Signed: Florence Damon MD at 16:25 EST Tel , Service support , Foot X-Ray 05/14/21 15:50 IMPRESSION: Soft tissue injury of the left foot with small plantar foreign bodies. Fracture-subluxation of the ankle. at 1625 Reported and signed by: Florence Damon MD Electronically Signed: Florence Damon MD at 16:28 EST Tel , Service support , Foot X-Ray 05/14/21 15:50 IMPRESSION: Nondisplaced fracture of the right fourth metatarsal neck. Soft tissue swelling of the ankle and foot with a possible nondisplaced fracture of the distal fibula. at 1636 Reported and signed by: Florecne Damon MD Electronically Signed: Florence Damon MD at 16:35 EST Tel , Service support , Forearm X-Ray 05/14/21 15:50 IMPRESSION: Comminuted and impacted fractures of the left distal radius and ulna with mild displacement. at 1638 Reported and signed by: Florence Damon MD Electronically Signed: Florence Damon MD at 16:36 EST Tel , Service support , Hand X-Ray 05/14/21 15:50 IMPRESSION: Suspect nondisplaced fracture of the left scaphoid. Acute fractures of the distal radius and ulna. at 1639 Reported and signed by: Florence Damon MD Electronically Signed: Florence Damon MD at 16:38 EST Tel , Service support , Pelvis X-Ray 05/14/21 15:50 IMPRESSION: No acute fracture or dislocation identified in the pelvis. at 1626 Reported and signed by: Florence Damon MD Electronically Signed: Florence Damon MD at 16:25 EST Tel , Service support , Tibia/Fibula X-Ray 05/14/21 15:50 IMPRESSION: Acute bimalleolar left ankle fracture-dislocation. Chronic distal tibial and fibular shaft fractures. at 1628 Reported and signed by: Florence Damon MD Electronically Signed: Florence Damon MD at 16:24 EST Tel , Service support , Tibia/Fibula X-Ray 05/14/21 15:50 IMPRESSION: No acute fracture or dislocation identified in the right leg. Soft tissue swelling of the ankle. at 1640 Reported and signed by: Florence Damon MD Electronically Signed: Florence Damon MD at 16:39 EST Tel , Service support , Wrist X-Ray 05/14/21 16:30 IMPRESSION: Acute, comminuted, impacted costochondral fracture of the distal radius with arthritic narrowing of the radial scaphoid joint space Acute comminuted multi fragmented distal ulnar fracture Diffuse soft tissue swelling Orthopedic surgery consultation recommended No demonstrated carpal or metacarpal fracture Electronically Signed: Ty Avitia MD at 17:34 EST , Service support , Ankle X-Ray 05/14/21 16:40 IMPRESSION: Acute, comminuted, osteochondral displaced fracture of the medial malleolus of the tibia. The distal fracture fragment maintains anatomic alignment with the talus, while the dorsal fracture fragment is displaced medially and dislocated anteriorly relative to the talus. I suspect there is also a posterior malleolar fracture which is minimally displaced Acute, angulated osteochondral fracture of the lateral malleolus Diffuse soft tissue swelling Orthopedic surgery consultation recommended No demonstrated talar, calcaneal, or navicular fracture Electronically Signed: Ty Avitia MD at 17:32 EST , Service support , Lower Extremity CT 05/14/21 17:14 IMPRESSION: 1. Acute posterior tibial malleolus fracture 2. Mild posterior subluxation of the talus 3. Comminuted fracture the distal one third fibula/lateral malleolus 4. Acute displaced fracture of the medial malleolus Electronically Signed: Jesse Johnson MD at 19:17 EST , Service support , Ankle X-Ray 05/14/21 18:12 IMPRESSION: 1. Mild to moderate soft tissue swelling is present around the ankle. Cortical thickening seen at the periphery of the lateral malleolus is likely due to old trauma. No visualized acute fracture. Electronically Signed: Jesse Johnson MD at 19:13 EST , Service support , Assessment & Plan Assessment/Plan (1) Closed left ankle fracture: QUALIFIERS: Encounter type: initial encounter Qualified Code(s): S82.892A - Other fracture of left lower leg, initial encounter for closed fracture PLAN: I spoke with my partner Dr. Mike. He will be in later today to see the patient and determine when she might be appropriate for definitive treatment. (2) Left wrist fracture: QUALIFIERS: Encounter type: initial encounter Fracture type: closed Qualified Code(s): S62.102A - Fracture of unspecified carpal bone, left wrist, initial encounter for closed fracture
[2021-05-15] MEDS: HYDROmorphone 0.5 MG/0.5 ML SYRINGE IV ×3 (08:39→18:30)
[2021-05-15] MEDS: 0.9% Saline Lock 10 ML Syringe IV ×4 (08:39→18:30)
[2021-05-15] MEDS: Enoxaparin 40 MG/0.4 ML Syringe SC (08:44)
[2021-05-15] MEDS: Menthol/Lanolin/Calamine/Znox 113 GM Tube 1 APPLIC TOPICAL ×2 (08:45→21:16)
[2021-05-15] MEDS: Nystatin Powder 15gm Bottle 1 APPLIC TOPICAL ×2 (08:45→21:17)
--- NOTE | 2021-05-15 11:08 | PCM.PN.HOSP ---
Documented by User: Jamar SMART 05/15/21 11:35 Subjective Subjective Patient is a 60-year-old female lying in bed, alert and oriented x3. Denies development of any new symptoms overnight. Does not appear in acute distress. Objective Data Objective Data Vital Signs: Vital Signs Temp Pulse Resp BP Pulse Ox 98.1 F 80 16 112/59 L 94 05/15/21 06:23 05/15/21 06:23 05/15/21 06:23 05/15/21 06:23 05/15/21 06:23 Oxygen Flow Rate (L/min) [4] 2 Oxygen Flow Rate (L/min) [3] 2 Oxygen Flow Rate (L/min) [2] 2 Oxygen Flow Rate (L/min) [1 ( 2 Initial Baseline)] Oxygen Flow Rate (L/min) 2 Oxygen Delivery Method [4] Nasal Cannula Oxygen Delivery Method [3] Nasal Cannula Oxygen Delivery Method [2] Nasal Cannula Oxygen Delivery Method [1 ( Nasal Cannula Initial Baseline)] Oxygen Delivery Method Room Air Weight: 207 lb 14.334 oz Body Mass Index (BMI) 32.5 Intake & Output: Intake and Output for Last 24 Hours 05/13/21 05/14/21 05/15/21 23:59 23:59 23:59 Intake Total 1200 / 1200 Balance 1200 / 1200 Lab / Micro Data Result Diagrams: 05/14/21 14:36 05/14/21 14:36 Labs: Laboratory Results - last 24 hr 05/14/21 14:36: WBC 9.7, RBC 4.76, Hgb 13.5, Hct 41.8, MCV 87.8, MCH 28.4, MCHC 32.3, RDW Std Deviation 42.6, RDW Coeff of Joleen 13.2, Plt Count 650 H, MPV 8.5, Immature Gran % (Auto) 0.600, Neut % (Auto) 63.3, Lymph % (Auto) 24.2, [place] % (Auto) 10.1 H, Eos % (Auto) 1.3, Baso % (Auto) 0.5, Absolute Neuts (auto) 6.2, Absolute Lymphs (auto) 2.36, Nucleated RBC % 0 05/14/21 14:36: Sodium 142, Potassium 3.4 L, Chloride 109 H, Carbon Dioxide 29.0, Anion Gap 4 L, BUN 16, Creatinine 0.83, Estim Creat Clear Calc 70.09, Est GFR (MDRD) Af Amer 90, Est GFR (MDRD) Non-Af 74, BUN/Creatinine Ratio 19.2, Glucose 113 H, Calcium 9.1 05/14/21 22:59: POC Glucose 104 05/15/21 00:45: Urine Color Yellow, Urine Clarity Clear, Urine pH 6.5, Ur Specific [place]flower 1.015, Urine Protein 15 H, Urine Glucose (UA) Normal, Urine Ketones Negative, Urine Occult Blood Negative, Urine Nitrite Negative, Urine Bilirubin Negative, Urine Urobilinogen Normal, Ur Leukocyte Esterase Negative, Urine RBC 0 SEEN, Urine WBC 0 SEEN, Ur Squamous Epith Cells 0 SEEN, Urine Bacteria 0 SEEN, Urine Mucus 0 SEEN 05/15/21 06:20: POC Glucose 90 Micro: Microbiology 05/14/21 17:17 Nasal Secretion SARS-CoV-2 Antigen (Rapid) - Final Radiography Diagnostic Testing: Radiology Impression Chest X-Ray 05/14/21 15:50 IMPRESSION: No radiographic evidence of acute cardiopulmonary disease. at 5630 Reported and signed by: Florence Damon MD Electronically Signed: Florence Damon MD at 16:25 EST Tel , Service support , Foot X-Ray 05/14/21 15:50 IMPRESSION: Soft tissue injury of the left foot with small plantar foreign bodies. Fracture-subluxation of the ankle. at 1623 Reported and signed by: Florence Damon MD Electronically Signed: Florence Damon MD at 16:28 EST Tel , Service support , Foot X-Ray 05/14/21 15:50 IMPRESSION: Nondisplaced fracture of the right fourth metatarsal neck. Soft tissue swelling of the ankle and foot with a possible nondisplaced fracture of the distal fibula. at 1636 Reported and signed by: Florence Damon MD Electronically Signed: Florence Damon MD at 16:35 EST Tel , Service support , Forearm X-Ray 05/14/21 15:50 IMPRESSION: Comminuted and impacted fractures of the left distal radius and ulna with mild displacement. at 1638 Reported and signed by: Florence Damon MD Electronically Signed: Florence Damon MD at 16:36 EST Tel , Service support , Hand X-Ray 05/14/21 15:50 IMPRESSION: Suspect nondisplaced fracture of the left scaphoid. Acute fractures of the distal radius and ulna. at 1639 Reported and signed by: Florence Damon MD Electronically Signed: Florence Damon MD at 16:38 EST Tel , Service support , Pelvis X-Ray 05/14/21 15:50 IMPRESSION: No acute fracture or dislocation identified in the pelvis. at 1626 Reported and signed by: Florence Damon MD Electronically Signed: Florence Damon MD at 16:25 EST Tel , Service support , Tibia/Fibula X-Ray 05/14/21 15:50 IMPRESSION: Acute bimalleolar left ankle fracture-dislocation. Chronic distal tibial and fibular shaft fractures. at 1625 Reported and signed by: Florence Damon MD Electronically Signed: Florence Damon MD at 16:24 EST Tel , Service support , Tibia/Fibula X-Ray 05/14/21 15:50 IMPRESSION: No acute fracture or dislocation identified in the right leg. Soft tissue swelling of the ankle. at 1640 Reported and signed by: Florence Damon MD Electronically Signed: Florence Damon MD at 16:39 EST Tel , Service support , Wrist X-Ray 05/14/21 16:30 IMPRESSION: Acute, comminuted, impacted costochondral fracture of the distal radius with arthritic narrowing of the radial scaphoid joint space Acute comminuted multi fragmented distal ulnar fracture Diffuse soft tissue swelling Orthopedic surgery consultation recommended No demonstrated carpal or metacarpal fracture Electronically Signed: Ty Avitia MD at 17:34 EST , Service support , Ankle X-Ray 05/14/21 16:40 IMPRESSION: Acute, comminuted, osteochondral displaced fracture of the medial malleolus of the tibia. The distal fracture fragment maintains anatomic alignment with the talus, while the dorsal fracture fragment is displaced medially and dislocated anteriorly relative to the talus. I suspect there is also a posterior malleolar fracture which is minimally displaced Acute, angulated osteochondral fracture of the lateral malleolus Diffuse soft tissue swelling Orthopedic surgery consultation recommended No demonstrated talar, calcaneal, or navicular fracture Electronically Signed: Ty Avitia MD at 17:32 EST , Service support , Lower Extremity CT 05/14/21 17:14 IMPRESSION: 1. Acute posterior tibial malleolus fracture 2. Mild posterior subluxation of the talus 3. Comminuted fracture the distal one third fibula/lateral malleolus 4. Acute displaced fracture of the medial malleolus Electronically Signed: Jesse Johnson MD at 19:17 EST , Service support , Ankle X-Ray 05/14/21 18:12 IMPRESSION: 1. Mild to moderate soft tissue swelling is present around the ankle. Cortical thickening seen at the periphery of the lateral malleolus is likely due to old trauma. No visualized acute fracture. Electronically Signed: Jesse Johnson MD at 19:13 EST , Service support , Physical Exam Const alert, oriented x3 and no apparent distress HEENT head/scalp atraumatic and moist oral mucous membranes Head and Scalp: normocephalic Eyes PERRL, EOMs intact bilaterally and conjunctivae normal Neck no lymphadenopathy, supple and no JVD Resp normal respiratory effort, no retractions, no use of accessory muscles and clear to auscultation bilaterally Cardio regular rate, regular rhythm, no murmurs and no JVD GI normal to inspection, nondistended, normoactive bowel sounds, soft to palpation and non-tender Extremity Extremity Narrative: Left wrist and ankle appropriately wrapped in bandaging. Skin no rashes or lesions noted, no wounds and skin turgor normal Neuro CN's II-XII intact bilaterally Psych affect normal Assessment & Plan Assessment/Plan (1) Closed left ankle fracture: QUALIFIERS: Encounter type: initial encounter Qualified Code(s): S82.892A - Other fracture of left lower leg, initial encounter for closed fracture (2) Left wrist fracture: QUALIFIERS: Encounter type: initial encounter Fracture type: closed Qualified Code(s): S62.102A - Fracture of unspecified carpal bone, left wrist, initial encounter for closed fracture (3) Scaphoid fracture, wrist, closed: QUALIFIERS: Encounter type: initial encounter Fracture alignment: nondisplaced Laterality: left Scaphoid bone location: unspecified portion of scaphoid Qualified Code(s): S62.002A - Unspecified fracture of navicular [scaphoid] bone of left wrist, initial encounter for closed fracture PLAN: Day 1 Discharge planning: To be determined, likely will need SNF. Case management consult ordered. 1) Left ankle fracture Bimalleolar fracture about the ankle and left foot as noted on imaging above. Dr. Mina consulted and following. Vitamin D level ordered/pending. As needed pain medications ordered. PT/OT eval ordered as well as case management consult for discharge planning as patient will likely need SNF. 2) Left wrist fracture Left scaphoid, radius and ulnar fractures, orthopedics consulted, plan as above. 3) Denuded skin Noted by admitting physician, suspect due to poor hygiene as patient has been unable to care for herself. CT scan of the lower extremity not demonstrate any infectious findings and only confirmed presence of fractures seen on x-ray. Orthopedics following as above. Wound care nurse following. 4) DM2 Accu-Cheks with sliding scale insulin ordered. DVT Prophylaxis - Lovenox Patient seen by Jamar Benavides PA-C, under the supervision of Dr. Barrera. Documented by User: Dr. Gio Barrera, 05/15/21 13:30 Subjective Subjective pain not adequately controlled by oxycodone, but hydromorphone helps. Objective Data Lab / Micro Data Result Diagrams: 05/14/21 14:36 05/14/21 14:36 Physical Exam Resp normal respiratory effort, no retractions, no use of accessory muscles and clear to auscultation bilaterally Cardio regular rate, regular rhythm, S1 normal heart sound and S2 normal heart sound GI normal to inspection, nondistended, normoactive bowel sounds, soft to palpation, non-tender and non-distended Assessment & Plan Assessment/Plan (1) Blister of skin due to prolonged pressure: (2) Fracture of metatarsal bone of right foot: (3) Bimalleolar fracture of left ankle: PLAN: Patient seen and examined independently. Data and vitals reviewed. I agree with the above note by the physician assistant softball coach. 1. Left ankle fracture Bi or trimalleolar To be reduced and splinted in the emergency room Dr. Pace has been notified by the emergency room and will be seeing the patient in consultation Nonweightbearing Pain control with oxycodone and as well as hydromorphone for breakthrough pain Check a 25-hydroxy vitamin D level Ascitic patient will require surgery. Patient medically optimized to proceed with surgery. An NQSIP performed and patient is going to be lower than average risk for serious complications. I do suspect the patient is going to require a long term facility as she will be nonweightbearing in her left wrist and leg for several weeks. 2. Left wrist fracture Left scaphoid, radius and ulnar fractures Orthopedics on consult 3. Denuded skin On the dorsum of the patient's left foot is very circumscribed area of denuded skin. Patient noted that her foot and ankle were exquisitely swollen and that has since retracted since. This could be just related with all the swelling that she did have but it seems very localized. Patient denies laying on her foot to suggest that she had a pressure ulcer. Consult wound care for further management I am concerned as it is malodorous but likely because the patient has not bathed in about a week but that we will check a CAT scan to make sure that she does not have any infectious concerns. 4. Diabetes mellitus type 2 sliding scale insulin 5. VTE prophylaxis with enoxaparin 6.Disposition: TBD. Will need SNF when medically and surgically ready. 7. H/O brain aneurysm s/p coiling stable. 8. Covid vaccine: Patient has previously agreed to get the COVID-19 vaccine. That was ordered on will be administered on the . I discussed with pharmacy about reason for that and they informed me that they are trying to cluster as much of the vaccines together so they do not waste doses. Charges/Coding Visit Charges Inpatient E&M: 52712 Subs Hosp L2
[2021-05-15 12:20] VITALS: BP 118/62; PULSE 94; RESP 18; TEMP 37.3; O2SAT 93
[2021-05-15 12:31] LABS: Bedside Glucose 110 mg/dL (70-110)
--- NOTE | 2021-05-15 14:15 | EKG12_ITS ---
Test Reason : Blood Pressure : / mmHG Vent. Rate : 086 BPM Atrial Rate : 086 BPM P-R Int : 136 ms QRS Dur : 082 ms QT Int : 372 ms P-R-T Axes : 050 031 056 degrees QTc Int : 445 ms Normal sinus rhythm Low voltage QRS Inferior infarct , age undetermined Abnormal ECG No previous ECGs available Confirmed by ANGELI HIGUERA, CIRILO ([id number]), video news editor MIYA FELIX ([id number]) on 05/18/2021 10:11:20 AM Referred By: NANCY Confirmed By:CIRILO SUH MD
--- NOTE | 2021-05-15 14:35 | NURSING ---
ORTHO IN EXPLAINING TO PT SEVERITY OF FRACTURES/WOUNDS. PT VERY UPSET, CRYING, STATING HE'S NOT CUTTING OFF MY FUCKING LEG, I DON'T KNOW WHY HE WOULD TELL ME THAT.
[2021-05-15 17:11] LABS: Bedside Glucose 144 mg/dL (70-110)
--- NOTE | 2021-05-15 17:17 | NURSING ---
Little UOP this shift, pt not taking in much po. Pt to be NPO after MN for AM OR. Dr Barrera made aware - new orders received.
[2021-05-15] MEDS: 0.9% Normal Saline 1,000 ML 125 ML IV (18:24)
[2021-05-15 18:30] VITALS: BP 104/57; PULSE 89; RESP 18; TEMP 37.1; O2SAT 93
--- NOTE | 2021-05-15 18:47 | NURSING ---
PT REQUESTING XANAX - CORTEXT TO DR BOYD
[2021-05-15 21:14] VITALS: BP 92/48; PULSE 81; RESP 16; TEMP 36.4; O2SAT 94
[2021-05-15 22:02] VITALS: BP 105/51; PULSE 91
[2021-05-15 23:15] LABS: Bedside Glucose 113 mg/dL (70-110)
[2021-05-16] VITALS (13 sets, daily range): BP systolic 94–132; BP diastolic 49–87; PULSE 84–106; RESP 16–24; TEMP 36.2–36.9; O2SAT 92–100; BMI 32.8
[2021-05-16] MEDS: 0.9% Normal Saline 1,000 ML 125 ML IV ×3 (02:19→16:53)
[2021-05-16] MEDS: HYDROmorphone 0.5 MG/0.5 ML SYRINGE IV ×3 (02:26→12:42)
[2021-05-16] MEDS: 0.9% Saline Lock 10 ML Syringe IV ×4 (02:26→15:11)
[2021-05-16 05:22] LABS: Absolute Neutrophil Count 5.5 X10^3/uL (2.0-7.7); Basophil# 0.03 X10^3/uL; Basophil% 0.3 % (0-1); Eosinophil# 0.13 X10^3/uL; Eosinophils% 1.4 % (0-5); Hematocrit 37.2 % (37-47); Hemoglobin 11.8 g/dL (12.0-15.0); Lymphocyte % 28.8 % (19-41); Mean Corp Hgb Conc 31.7 g/dL (32-36); Mean Corpuscular Volume 88.4 fL (81-99); Mean Platelet Vol. 8.4 fl (6.2-12.0); Monocyte# 0.98 X10^3/uL; Monocyte% 10.4 % (0-10); NRBC Flagged by Analyzer 0 % (0-5); Neutrophil # 5.52 X10^3/uL (2.7-7.7); Neutrophil % 58.8 % (47-70); Platelet Count 549 K/mm3 (150-450); RBC Distribution Width CV 13.1 % (11.6-14.6); RBC Distribution Width SD 41.4 fl (35.1-43.9); Red Blood Count 4.21 M/mm3 (4.2-5.4); White Blood Count 9.4 K/mm3 (4.4-11.0)
[2021-05-16 05:49] LABS: Anion Gap 5 (5-15); BUN 10 mg/dL (7-18); BUN/Creat Ratio 14.2 RATIO (10-20); Calcium,Total 8.2 mg/dL (8.5-10.1); Chloride 107 mmol/L (98-107); EST Glomerular Filtration Rate 90 mL/min (>60); Est Glom Filt Rate - Afr Amer 109 mL/min (>60); Estimated Creatinine Clearance 83.11 ml/min; Glucose 110 mg/dL (74-106); Potassium 3.5 mmol/L (3.5-5.1); Sodium Level 141 mmol/L (136-145)
[2021-05-16 06:45] LABS: Bedside Glucose 102 mg/dL (70-110)
--- NOTE | 2021-05-16 07:22 | CON.PCM.OR_ITS ---
HPI Consult Data Date of Consult: 05/16/21 HPI Narrative HPI Narrative: SALAZAR ROTHMAN, is a 60 F who presented to [facility] 10 days after a fall down an entire flight of stairs. She states she caught her foot on a leg of a lift chair of her 's. She noted pain and deformity in both the left wrist and left ankle. She had significant difficulty bearing weight on the left ankle. She states she was leery of seeking care for both injuries secondary to multiple surgeries on a brain aneurysm approximately 20 years ago. She denies prior trauma to her left wrist or ankle. Denies antecedent pain. She was admitted under the service of the hospitalist. My partner, Dr. Mina, saw the patient in consultation. He asked if I would assum e care of the patient and I agreed. At time of examination, patient denied any fevers, chills, nausea vomiting, chest pain or shortness of breath. She denied any numbness or tingling in the left hand or left foot. FOR[facility]LY [facility] Medical History Anemia Anxiety and depression Arthritis Brain aneurysm Chronic back pain COPD (chronic obstructive pulmonary disease) Diabetes Fistula Hepatitis B Migraines Smoker Vitamin D deficiency Home Medications NK 05/14/21 [History Last Taken Unknown] Allergy/AdvReac Type Severity Reaction Status Date / Time ibuprofen Allergy Rash Verified 05/14/21 19:51 Sulfa (Sulfonamide Allergy Unknown Verified 05/14/21 19:51 Antibiotics) Family History (Updated 05/14/21 @ 17:[address] Gio Barrera, DO) Mother Breast cancer Cancer bone Anxiety and depression Grandmother Breast cancer Hypertension Father Cancer oral Myocardial infarction Alcoholism Daughter Autism Daughter Bipolar 1 disorder Surgical History History of cholecystectomy Social History Smoking Status: Current every day smoker tobacco type: cigarettes Tobacco: How many years used: 40 alcohol intake: never substance use type: does not use what type of physical activity do you participate in: none ROS ROS Narrative 10 point review of systems obtained, negative unless otherwise noted in HPI. Vital Signs Vital Signs Vital Signs: 05/15/21 12:20 05/15/21 18:30 05/15/21 21:06 Temperature 99.1 F 98.8 F Temperature Source Oral Oral Pulse Rate 94 89 Respiratory Rate 18 18 Respiratory Effort Normal Respiratory Depth Normal Respiratory Pattern Normal Blood Pressure 118/62 104/57 L Blood Pressure [BP] Blood Pressure Mean 80 72 Blood Pressure Mean [BP] Blood Pressure Source Monitor Monitor Blood Pressure Position Semi-Fowlers Semi-Fowlers Blood Pressure Location Right Arm Right Arm Pulse Ox 93 93 Oxygen Delivery Method Room Air Room Air Room Air 05/15/21 21:14 05/15/21 22:02 05/16/21 02:18 Temperature 97.5 F L 98 F Temperature Source Temporal Temporal Pulse Rate 81 91 86 Respiratory Rate 16 18 Respiratory Effort Respiratory Depth Respiratory Pattern Blood Pressure 92/48 L 97/60 Blood Pressure [BP] 105/51 L Blood Pressure Mean 62 72 Blood Pressure Mean [BP] 69 Blood Pressure Source Blood Pressure Position Blood Pressure Location Pulse Ox 94 94 Oxygen Delivery Method Room Air Room Air 05/16/21 06:01 Temperature 98.2 F Temperature Source Temporal Pulse Rate 85 Respiratory Rate 18 Respiratory Effort Respiratory Depth Respiratory Pattern Blood Pressure 125/66 H Blood Pressure [BP] Blood Pressure Mean 85 Blood Pressure Mean [BP] Blood Pressure Source Blood Pressure Position Blood Pressure Location Pulse Ox 96 Oxygen Delivery Method Room Air Weight Weight: 209 lb 8 oz Body Mass Index (BMI) 32.8 Physical Exam Narrative General -A&Ox3, NAD, appears stated age. Vital signs stable, afebrile. Respiratory -normal work of breathing, no intercostal retractions. CV -pulses regular, brisk capillary refill ?4 limbs. Abdomen-soft, nontender, nondistended. No guarding, rigidity, rebound tenderness. Musculoskeletal/neurologic -full range of motion nontender throughout right upper extremity, right lower extremity with full sensation and strength in all dermatomes and myotomes. No midline cervical tenderness. Left lower extremity-left ankle and short leg splint. Nontender about the left knee. Multiple fracture blisters about the ankle and dorsum of the foot noted. Brisk capillary refill. Sensation intact light touch L3-S1 dermatomes. DF, PF, EHL intact. DP, PT 2+. Pelvis is stable, nontender. Left upper extremity-left wrist splint in place, clean dry and intact. Cardinal motion of the left hand are intact. Sensation intact to light touch median/ulnar/radial nerve distributions of the left hand. Brisk capillary refill in the fingertips. No pain with passive stretch of the digits. Lab / Micro Data Result Diagrams: 05/16/21 05:00 05/16/21 05:00 Labs: Laboratory Results - last 24 hr 05/15/21 11:54: POC Glucose 110 05/15/21 16:58: POC Glucose 144 H 05/15/21 17:17: Blood Type B NEGATIVE, Antibody Screen NEGATIVE 05/15/21 21:18: POC Glucose 113 H 05/16/21 05:00: WBC 9.4, RBC 4.21, Hgb 11.8 L, Hct 37.2, MCV 88.4, MCH 28.0, MCHC 31.7 L, RDW Std Deviation 41.4, RDW Coeff of Joleen 13.1, Plt Count 549 H, MPV 8.4, Immature Gran % (Auto) 0.300, Neut % (Auto) 58.8, Lymph % (Auto) 28.8, [place] % (Auto) 10.4 H, Eos % (Auto) 1.4, Baso % (Auto) 0.3, Absolute Neuts (auto) 5.5, Absolute Lymphs (auto) 2.70, Nucleated RBC % 0 05/16/21 05:00: Sodium 141, Potassium 3.5, Chloride 107, Carbon Dioxide 29.0, Anion Gap 5, BUN 10, Creatinine 0.70, Estim Creat Clear Calc 83.11, Est GFR (MDRD) Af Amer 109, Est GFR (MDRD) Non-Af 90, BUN/Creatinine Ratio 14.2, Glucose 110 H, Calcium 8.2 L 05/16/21 06:06: POC Glucose 102 Assessment & Plan Assessment/Plan (1) Closed left ankle fracture: QUALIFIERS: Encounter type: initial encounter Qualified Code(s): S82.892A - Other fracture of left lower leg, initial encounter for closed fracture PLAN: X-rays and CT scan reviewed demonstrate a trimalleolar fracture dislocation of the left ankle Soft tissue concerns with sloughing fracture blisters Subacute presentation Recommending urgent closed versus open reduction left ankle with application of external fixator and possible wound VAC I discussed the risks, benefits, alternatives to procedure at length with the patient and she agreed to proceed. Risks include but not limited to bleeding, infection, loss of life or limb, persistent pain, posttraumatic arthritis, need for additional surgery, risk of nonhealing wounds, risk of amputation, neur ovascular injury, DVT or PE. Informed consent obtained. (2) Left wrist fracture: QUALIFIERS: Encounter type: initial encounter Fracture type: closed Qualified Code(s): S62.102A - Fracture of unspecified carpal bone, left wrist, initial encounter for closed fracture PLAN: Comminuted intra-articular left distal radius fracture I recommended closed versus open reduction of left distal radius with internal fixation versus dorsal spanning plate The risks, benefits, terms of procedure reviewed with patient at length and she agreed to proceed. discussed the risks, benefits, alternatives to procedure at length with the patient and she agreed to proceed. Risks include but not limited to bleeding, infection, loss of life or limb, persistent pain, posttraumatic arthritis, need for additional surgery, risk of nonhealing wounds,neurovascular injury, DVT or PE. Informed consent obtained. Further recommendations pending surgery.
--- NOTE | 2021-05-16 07:35 | RAD_ITS ---
STUDY: X-RAY - LEFT WRIST REASON FOR EXAM: Female, 60 years old. FX REPAIR TECHNIQUE: 2 view(s) of the wrist were obtained. COMPARISON: 05/14/2021 FINDINGS: Fluoroscopy of the left wrist was utilized and operating room during open reduction internal fixation of Colles'' fracture the distal radius.. RAD/Wrist 2 Views IMPRESSION: Fluoroscopy during open reduction internal fixation of Colles'' fracture. Electronically Signed: Serg Grant MD at 8:53 EST Tel , Service support ,
--- NOTE | 2021-05-16 08:46 | NURSING ---
Pt is not in room, pt was brought down to surgery at shift change this morning.
--- NOTE | 2021-05-16 09:00 | RAD_ITS ---
STUDY: X-RAY - LEFT ANKLE REASON FOR EXAM: Female, 60 years old. FX REPAIR TECHNIQUE: 2 view(s) of the ankle. COMPARISON: 05/14/2021 FINDINGS: Fluoroscopy of the left ankle was utilized and operating room during placement of an extra fixed or for fractures about the ankle.. RAD/Ankle 2 Views IMPRESSION: Fluoroscopy during external fixation. Electronically Signed: Serg [facility] MD at 11:21 EST Tel , Service support ,
[2021-05-16 10:02] LABS: Hemoglobin A1c 6.5 % (3.8-5.6)
[2021-05-16 10:26] LABS: Bedside Glucose 105 mg/dL (70-110)
--- NOTE | 2021-05-16 10:27 | OP.PCM_ITS ---
Report of Operation Date of Procedure: 05/16/21 Description of Surgical Findings:: Preoperative diagnosis: 1. Comminuted, intra-articular closed fracture of the left distal radius 2. Closed trimalleolar ankle fracture dislocation 3. Anterior medial ankle wound Postoperative diagnosis: 1. Comminuted, intra-articular closed fracture of the left distal radius 2. Closed trimalleolar ankle fracture dislocation 3. Superficial ankle wounds x3 Procedure: 1. Closed reduction, placement of internal dorsal spanning plate left wrist 2. Closed reduction left ankle fracture dislocation, Application of spanning external fixator left ankle 3. Debridement of superficial wound skin x3, wound measurements 12 x 12 cm, 3.5 cm x 5.5 cm, 4.25 cm x 1.25 cm Surgeon: Den Mike DO [place]: FARIBA Baez Anesthesia: General Anesthesiologist: Dr. Cornelius Complications: None apparent Drains: None Estimated blood loss: 50 cc Urinary output: None recorded IV fluids: Per anesthesia record Specimens: None Surgical implants: Wrist-Pretty VariAx 2 - 14 hole 3.5 mm compression plate narrow straight Ankle - [place] Spear 3 external fixation system with apex pins times 3 5 mm diameter, calcaneus transfixing pin 4/5 x 250 mm. Coated Carbon connecting rods 400 mm x 2, kickstand coated Carbon connecting susan x1 Surgical indications: This is a 60-year-old female diabetic who sustained a fall down a flight of stairs approximately 12 days ago. She refused to seek medical care despite inability to walk, pain in her left wrist and left ankle and gross deformity to both. Blistering develops about her left ankle and foot. Due to worsening pain and blistering, she sought medical care 05/14/2021. X-rays in the emergency department revealed a fracture dislocation trimalleolar of the left ankle, intra-articular displaced fracture of the left distal radius as well as wounds about the left ankle. She was subsequently admitted by the hospitalist. I saw the patient on 05/15/2021 after being asked by my partner, Dr. Mina, to take on her case. I recommended surgical intervention in the form of left ankle and left wrist closed reduction. I recommended applying a external fixator to left ankle and a joint spanning dorsal plate to the left wrist. I recommended the external fixator about the ankle due to soft tissue concerns and swelling. We also discussed performing a wound debridement about the left ankle. I discussed the risks, benefits, alternatives to procedures. Risks included but were not limited to bleeding, infection, loss of life or limb, need for additional surgery, persistent pain, stiffness, posttraumatic arthritis, neurovascular injury, DVT or PE, wound complications. Patient expressed understanding his risk and wished to proceed with surgery. Description of procedure: Patient was identified in the preoperative holding area by name, medical record number, date of . The operative extremities were marked. All questions answered patient satisfaction. Patient was brought to the operative suite and positioned supine a standard oper ating table. General anesthesia was induced. A hand table was attached to the patient's left side. All bony prominences were well-padded. We first our attention to the left wrist. The wrist splint was removed. There was a 1 x 1 cm superficial wound noted along the olecranon. We prepped and draped the left wrist in a normal, sterile orthopedic fashion. We performed a timeout with all parties in attendance in agreement with the side, site, operation be performed. No concerns were voiced and we elected to proceed. 2 g Ancef was administered prior to the incision by the anesthesia staff. I first brought in a C arm to evaluate the mobility of the fracture site given its chronicity. After some gentle manipulation, the fracture did appear to be mobile enough to accommodate a joint spanning internal fixator. I marked incisions overlying the shaft of the second metacarpal and the bare area of the distal third of the radial shaft. Skin was sharply incised with 15 blade scalpel. Hemostasis obtained with Bovie cautery. In the metacarpal incision, extensor tendons were encountered and carefully protected. Periosteum of the metacarpal was sharply elevated. I turned my attention to the radial incision where the skin was sharply incised with 15 blade scalpel. Fascia was opened sharply. Superficial nerves were encountered and protected. I then elevated the periosteum from the radial shaft. I then passed a tonsil hemostat subcutaneously to connect both incisions. I then passed an appropriately sized 3.5 mm compression plate from incision to incision. I I then drilled for 3 bicortical screws, 2.7 mm in size in the second metacarpal shaft. These were placed with excellent purchase. I had my attention I then had my sales assistant displays pulled traction and ulnar deviation. Adequate reduction was confirmed on fluoroscopy. I then drilled for 3 bicortical cortical screws in the radial shaft, 3.5 mm in size. Final fluoroscopic images were obtained demonstrating acceptable reduction, some residual dorsal angulation but improved radial height. Wounds were copiously irrigated normal saline solution. Dermis was reapproximated with buried 3-0 Vicryl suture. Skin was reapproximated with 4-0 nylon suture in horizontal mattress fashion. Sterile bulky dressing was applied as well as a well-padded volar and dorsal slab fiberglass splint. I then turned my attention to the left ankle. Splint was removed. We bumped the left hip to internally rotate the leg and elevated on bath blankets. Prior to prepping, I performed a scrub with a Betadine sponge. There was significant blistering noted about the ankle and dorsum of the foot. Blisters were drained. Superficial skin that was sloughing was debrided sharply. There is no active drainage at this point. We then prepped and draped the right lower extremity in a normal, sterile orthopedic fashion with Betadine prep. We first examined the skin. Wound beds were debrided to healthy-appearing skin sharply. The dermis did appear to be intact in both the dorsum of the foot and anterior lateral ankle. There was exposed subcutaneous fat overlying the anterior medial ankle wound. Wound sizes measured: Superficial skin sloughing foot dorsum 12 x 12 cm Anterior medial ankle down to fat 3.5 cm x 5.5 cm, Superficial skin sloughing anterior lateral ankle 4.25 cm x 1.25 cm I performed a closed reduction maneuver with traction and varus force. C arm was used to demonstrate appropriate reduction in the coronal plane. There was significant posterior instability due to a large posterior malleolar fragment. There did appear to be a remote distal third tibial shaft fracture which may have involved the posterior malleolus fracture. This is suspicious for chronic posterior malleoli are fracture and possible posterior chronic instability. I was able to nearly anatomically reduce the sagittal plane instability with a bump under the heel and a posteriorly directed force along the tibial shaft and ankle dorsiflexion. We then plan to apply our standard delta frame external fixator. I planned my tibial pins 10 cm proximal to the end of the suspected tibial fixation. I marked the skin at appropriate levels. Skin was sharply incised with 15 blade scalpel. We drilled bicortically for 3 pins. Pins were placed to an appropriate depth and tightened by hand. He is achieved excellent fixation. We then turned attention to the calcaneus. Using a perfect lateral fluoroscopic image of the ankle, I planned a transfixion pin of the calcaneus 2 cm anterior and proximal to the posterior plantar corner of the calcaneus. This was drilled bicortically and driven out the lateral skin. We drilled the pin to an appropriate depth. We then constructed our delta frame. Reduction maneuver was applied and held with traction. Fluoroscopic images confirmed appropriate reduction. We then tightened the frame ensuring stability. I placed an additional kickstand bar to help with elevation and to protect the posterior heel skin. We then applied Xeroform and pressure dressing gauze and Venkat wrap over top of the wounds and leg. The dorsum of the foot wound was dressed with Adaptic. Patient tolerated procedure well without complication. She was transferred to her hospital bed and subsequently to PACU in stable condition. Postoperative plan: Patient will be nonweightbearing to the operative ext remities. She may bear weight through the left elbow if a platform walker is considered. Lovenox 40 mg for DVT prophylaxis,Plan to restart 05/17/2021. I will see the patient tomorrow. Plan to follow-up in my office in approximately 14 days. Elevate the operative extremities. Patient will likely require residential facility placement. Likely plan on definitive fixation with that the dorsal spanning plate of the left wrist with planned removal in 8 to 12 weeks. We will likely plan on definitive surgical fixation of the left ankle in the form of open reduction internal fixation and removal of the external fixator in the coming weeks depending on how the wounds appear on her ankle.
--- NOTE | 2021-05-16 12:10 | NURSING ---
Returned to room at this time from surgery via bed.
--- NOTE | 2021-05-16 12:46 | PN.HOSP_ITS ---
Documented by User: Jamar SMART 05/16/21 13:00 Subjective Subjective Patient is a 60-year-old female comfortably resting in bed after surgery, alert and orient x3. Patient denies development of any new symptoms overnight. Does not appear in acute distress. Objective Data Objective Data Vital Signs: Vital Signs Temp Pulse Resp BP Pulse Ox 97.2 F L 93 20 H 132/75 H 93 05/16/21 12:22 05/16/21 12:22 05/16/21 12:22 05/16/21 12:22 05/16/21 12:22 Oxygen Flow Rate (L/min) [4] 2 Oxygen Flow Rate (L/min) [3] 2 Oxygen Flow Rate (L/min) [2] 2 Oxygen Flow Rate (L/min) [1 ( 2 Initial Baseline)] Oxygen Flow Rate (L/min) 1 Oxygen Delivery Method [4] Nasal Cannula Oxygen Delivery Method [3] Nasal Cannula Oxygen Delivery Method [2] Nasal Cannula Oxygen Delivery Method [1 ( Nasal Cannula Initial Baseline)] Oxygen Delivery Method Room Air Weight: 209 lb 8 oz Body Mass Index (BMI) 32.8 Intake & Output: Intake and Output for Last 24 Hours 05/14/21 05/15/21 05/16/21 23:59 23:59 23:59 Intake Total 1999 / 1999 1989.58 / 1989.58 Output Total 700 / 700 500 / 500 Balance 1300 / 1300 1489.58 / 1489.58 Lab / Micro Data Result Diagrams: 05/16/21 05:00 05/16/21 05:00 Labs: Laboratory Results - last 24 hr 05/15/21 16:58: POC Glucose 144 H 05/15/21 17:17: Blood Type B NEGATIVE, Antibody Screen NEGATIVE 05/15/21 21:18: POC Glucose 113 H 05/16/21 05:00: WBC 9.4, RBC 4.21, Hgb 11.8 L, Hct 37.2, MCV 88.4, MCH 28.0, MCHC 31.7 L, RDW Std Deviation 41.4, RDW Coeff of Joleen 13.1, Plt Count 549 H, MPV 8.4, Immature Gran % (Auto) 0.300, Neut % (Auto) 58.8, Lymph % (Auto) 28.8, [place] % (Auto) 10.4 H, Eos % (Auto) 1.4, Baso % (Auto) 0.3, Absolute Neuts (auto) 5.5, Absolute Lymphs (auto) 2.70, Nucleated RBC % 0 05/16/21 05:00: Sodium 141, Potassium 3.5, Chloride 107, Carbon Dioxide 29.0, Anion Gap 5, BUN 10, Creatinine 0.70, Estim Creat Clear Calc 83.11, Est GFR (MDRD) Af Amer 109, Est GFR (MDRD) Non-Af 90, BUN/Creatinine Ratio 14.2, Glucose 110 H, Calcium 8.2 L 05/16/21 05:00: Hemoglobin A1c 6.5 H 05/16/21 06:06: POC Glucose 102 05/16/21 10:20: POC Glucose 105 Micro: Microbiology 05/14/21 17:17 Nasal Secretion SARS-CoV-2 Antigen (Rapid) - Final Radiography Diagnostic Testing: Radiology Impression Wrist X-Ray 05/16/21 07:35 IMPRESSION: Fluoroscopy during open reduction internal fixation of Colles'' fracture. Electronically Signed: Serg Grant MD at 8:53 EST Tel , Service support , Ankle X-Ray 05/16/21 09:00 IMPRESSION: Fluoroscopy during external fixation. Electronically Signed: Serg Grant MD at 11:21 EST Tel , Service support , Physical Exam Const alert, oriented x3 and no apparent distress HEENT head/scalp atraumatic and moist oral mucous membranes Head and Scalp: normocephalic Eyes PERRL, EOMs intact bilaterally and conjunctivae normal Neck no lymphadenopathy, supple and no JVD Resp normal respiratory effort, no retractions and no use of accessory muscles Cardio regular rate, regular rhythm, no murmurs and no JVD GI normal to inspection, nondistended, normoactive bowel sounds, soft to palpation and non-tender Extremity normal to inspection, full ROM and no clubbing, cyanosis or edema Skin no rashes or lesions noted, no wounds and skin turgor normal Neuro CN's II-XII intact bilaterally Psych affect normal Assessment & Plan Assessment/Plan (1) Closed left ankle fracture: QUALIFIERS: Encounter type: initial encounter Qualified Code(s): S82.892A - Other fracture of left lower leg, initial encounter for closed fracture (2) Left wrist fracture: QUALIFIERS: Encounter type: initial encounter Fracture type: closed Qualified Code(s): S62.102A - Fracture of unspecified carpal bone, left wrist, initial encounter for closed fracture (3) Scaphoid fracture, wrist, closed: QUALIFIERS: Encounter type: initial encounter Fracture alignment: nondisplaced Laterality: left Scaphoid bone location: unspecified portion of scaphoid Qualified Code(s): S62.002A - Unspecified fracture of navicular [scaphoid] bone of left wrist, initial encounter for closed fracture PLAN: Day 2 Discharge planning: To be determined, likely will need SNF. Case management consult ordered. 1) Left ankle fracture POD 0 for closed reduction of left ankle d/t trimalleolar fracture w/ dislocation of the left ankle. Vitamin D level ordered/pending. Management per orthopedics; nonweightbearing on upper extremities, initiate Lovenox for DVT prophylaxis on 05/17, follow-up as an outpatient in 14 days, will need defi nitive fixation of left ankle at later date, likely will need discharge to SNF due to weightbearing status as well as lack of support at home. 2) Left wrist fracture POD 0 for closed reduction of left wrist due to left scaphoid, radius and ulnar fractures as noted above. Management per orthopedics, patient to follow-up with orthopedics in 8 to 12 weeks for definitive fixation of left wrist. 3) Denuded skin Noted by admitting physician, suspect due to poor hygiene as patient has been unable to care for herself. CT scan of the lower extremity not demonstrate any infectious findings and only confirmed presence of fractures seen on x-ray. Orthopedics following as above. Wound care nurse following. 4) DM2 Accu-Cheks with sliding scale insulin ordered. DVT Prophylaxis - Lovenox Patient seen by Jamar Benavides PA-C, under the supervision of Dr. Barrera. Documented by User: Dr. Gio Barrera DO 05/16/21 13:50 Subjective Subjective Some shivering. Pain slightly different. Objective Data Lab / Micro Data Result Diagrams: 05/16/21 05:00 05/16/21 05:00 Physical Exam Const alert and oriented x3 Extremity Extremity Narrative: left arm casted. left leg casted with external fixator Assessment & Plan Assessment/Plan (1) Closed left ankle fracture: QUALIFIERS: Encounter type: initial encounter Qualified Code(s): S82.892A - Other fracture of left lower leg, initial encounter for closed fracture (2) Left wrist fracture: QUALIFIERS: Encounter type: initial encounter Fracture type: closed Qualified Code(s): S62.102A - Fracture of unspecified carpal bone, left wrist, initial encounter for closed fracture PLAN: Patient seen and examined independently. Data and vitals reviewed. I agree with the above note by the physician patient observation assistant. 1. Left ankle fracture Bi or trimalleolar To be reduced and splinted in the emergency room Dr. Pace has been notified by the emergency room and will be seeing the patient in consultation Nonweightbearing Pain control with oxycodone and as well as hydromorphone for breakthrough pain s/p ORIF with external fixator on 05/16 2. Left wrist fracture Left scaphoid, radius and ulnar fractures s/p reduction follow up with orthopaedics 3. Denuded skin On the dorsum of the patient's left foot is very circumscribed area of denuded skin. Patient noted that her foot and ankle were exquisitely swollen and that has since retracted since. This could be just related with all the swelling that she did have but it seems very localized. Patient denies laying on her foot to suggest that she had a pressure ulcer. Consult wound care for further management I am concerned as it is malodorous but likely because the patient has not bathed in about a week but that we will check a CAT scan to make sure that she does not have any infectious concerns. S/P debridement 05/16 4. Diabetes mellitus type 2 sliding scale insulin 5. VTE prophylaxis with enoxaparin 6.Disposition: TBD. Will need SNF when medically and surgically ready. 7. H/O brain aneurysm s/p coiling stable. 8. Covid vaccine: Patient has previously agreed to get the COVID-19 vaccine. That was ordered on will be administered on the . I discussed with pharmacy about reason for that and they informed me that they are trying to cluster as much of the vaccines together so they do not waste doses. Charges/Coding Visit Charges Inpatient E&M: 09544 Subs Hosp L2
[2021-05-16 12:51] LABS: Bedside Glucose 122 mg/dL (70-110)
[2021-05-16] MEDS: oxyCODONE 5 MG Tablet PO (13:15)
[2021-05-16] MEDS: Cefazolin 1 GM/50 ML BAG IV ×2 (14:28→20:56)
[2021-05-16] MEDS: HYDROmorphone Inj 0.2 MG/ML SYRINGE 0.5 MG IV (15:11)
[2021-05-16] MEDS: Acetaminophen 500 MG Tablet 1000 MG PO ×2 (15:13→21:00)
[2021-05-16] MEDS: Ketorolac 15 MG/ML Vial IV (15:15)
[2021-05-16 17:00] LABS: Bedside Glucose 123 mg/dL (70-110)
[2021-05-16] MEDS: oxyCODONE 5 MG Tablet 10 MG PO ×2 (17:22→22:42)
[2021-05-16] MEDS: HYDROmorphone 0.5 MG/0.5 ML SYRINGE 1 MG IV (20:56)
[2021-05-16] MEDS: Menthol/Lanolin/Calamine/Znox 113 GM Tube 1 APPLIC TOPICAL (21:01)
[2021-05-16] MEDS: Nystatin Powder 15gm Bottle 1 APPLIC TOPICAL (21:01)
[2021-05-16 22:36] LABS: Bedside Glucose 141 mg/dL (70-110)
[2021-05-17] VITALS (9 sets, daily range): BP systolic 113–146; BP diastolic 60–81; PULSE 79–89; RESP 16–18; TEMP 36.7–37.5; O2SAT 93–97
[2021-05-17] MEDS: HYDROmorphone 0.5 MG/0.5 ML SYRINGE 1 MG IV ×3 (01:05→15:12)
[2021-05-17] MEDS: 0.9% Normal Saline 1,000 ML 125 ML IV ×3 (01:06→20:29)
[2021-05-17] MEDS: oxyCODONE 5 MG Tablet 10 MG PO ×3 (04:37→20:27)
[2021-05-17] MEDS: Acetaminophen 500 MG Tablet 1000 MG PO ×3 (04:37→20:28)
[2021-05-17 07:05] LABS: Bedside Glucose 105 mg/dL (70-110)
[2021-05-17 09:36] LABS: Vitamin D,25 Hydroxy 30.5 ng/mL
[2021-05-17] MEDS: ALPRAZolam 0.25 MG Tablet PO ×2 (10:17→23:34)
[2021-05-17] MEDS: Menthol/Lanolin/Calamine/Znox 113 GM Tube 1 APPLIC TOPICAL ×2 (10:17→20:28)
[2021-05-17] MEDS: Enoxaparin 40 MG/0.4 ML Syringe SC (10:18)
[2021-05-17] MEDS: Nystatin Powder 15gm Bottle 1 APPLIC TOPICAL ×2 (10:18→20:29)
--- NOTE | 2021-05-17 11:44 | PN.HOSP_ITS ---
Subjective Subjective Patient is a 60-year-old lady who presented following a fall 2 weeks prior to admission. She was noted to have a left ankle fracture for which she underwent ORIF with an external fixator on 05/16/2021 Objective Data Objective Data Vital Signs: Vital Signs Temp Pulse Resp BP Pulse Ox 98.3 F 81 16 143/81 H 96 05/17/21 10:44 05/17/21 10:44 05/17/21 10:44 05/17/21 10:44 05/17/21 10:44 Oxygen Flow Rate (L/min) [4] 2 Oxygen Flow Rate (L/min) [3] 2 Oxygen Flow Rate (L/min) [2] 2 Oxygen Flow Rate (L/min) [1 ( 2 Initial Baseline)] Oxygen Flow Rate (L/min) 1 Oxygen Delivery Method [4] Nasal Cannula Oxygen Delivery Method [3] Nasal Cannula Oxygen Delivery Method [2] Nasal Cannula Oxygen Delivery Method [1 ( Nasal Cannula Initial Baseline)] Oxygen Delivery Method Room Air Weight: 95.028 kg Body Mass Index (BMI) 32.8 Intake & Output: Intake and Output for Last 24 Hours 05/15/21 05/16/21 05/17/21 23:59 23:59 23:59 Intake Total 1999 / 1999 3010.83 / 3610.83 2600 / 2600 Output Total 700 / 700 1700 / 2300 1000 / 1000 Balance 1300 / 1300 1310.83 / 1310.83 1600 / 1600 Lab / Micro Data Result Diagrams: 05/16/21 05:00 05/16/21 05:00 Labs: Laboratory Results - last 24 hr 05/16/21 05:00: Vitamin D 25-Hydroxy 30.5 05/16/21 12:36: POC Glucose 122 H 05/16/21 16:52: POC Glucose 123 H 05/16/21 21:11: POC Glucose 141 H 05/17/21 06:47: POC Glucose 105 Micro: Microbiology 05/14/21 17:17 Nasal Secretion SARS-CoV-2 Antigen (Rapid) - Final Physical Exam Narrative GENERAL: cooperative HEENT: Atraumatic; EYES; Anicteric, Normal Conjunctiva NECK; supple, normal thyroid, RESPIRATORY: Diminished to auscultation CARDIOVASCULAR: Regular S1 S2, GI: soft, normoactive bowel sounds, : No Renal angle tenderness; EXTREMITIES: No edema, no clubbing, MUSCULOSKELETAL: Left upper extremity extremity immobilized; left lower extremity in a cast with an external fixator NEURO: Awake; no lateralizing signs. PSYCH; Flat affect Assessment & Plan Assessment/Plan (1) Closed left ankle fracture: QUALIFIERS: Encounter type: initial encounter Qualified Code(s): S82.892A - Other fracture of left lower leg, initial encounter for closed fracture (2) Left wrist fracture: QUALIFIERS: Encounter type: initial encounter Fracture type: closed Qualified Code(s): S62.102A - Fracture of unspecified carpal bone, left wrist, initial encounter for closed fracture PLAN: Patient is a 60-year-old lady who presented following a fall 2 weeks prior to admission. She was noted to have a left ankle fracture for which she underwent ORIF with an external fixator on 05/16/2021 1. Fall with left ankle fracture -Status post ORIF with an external fixator on 05/16/2021 2. Left wrist fracture ?Status post reduction currently immobilized 3. Physical deconditioning -Secondary to above, requested for PT OT eval and child protective services social worker to assist with discharge planning 4. Diabetes mellitus type 2 ?Managed with diet and sliding scale insulin 5. History of brain aneurysm ?Status post coiling. Remains stable 6. DVT prophylaxis ?Lovenox 7. Class I obesity with BMI of 32 ?Weight loss advised Charges/Coding Visit Charges Inpatient E&M: 98878 Subs Hosp L2
--- NOTE | 2021-05-17 11:51 | PN.ORTHO_ITS ---
Subjective Subjective Patient seen and examined at bedside. Reports significant pain from surgery. Denies any numbness or tingling. Tolerating oral intake without nausea or vomiting. Denies fevers, chills, chest pain, shortness of breath. Objective Data Objective Data Vital Signs: Vital Signs Temp Pulse Resp BP Pulse Ox 98.3 F 81 16 143/81 H 96 05/17/21 10:44 05/17/21 10:44 05/17/21 10:44 05/17/21 10:44 05/17/21 10:44 Oxygen Flow Rate (L/min) [4] 2 Oxygen Flow Rate (L/min) [3] 2 Oxygen Flow Rate (L/min) [2] 2 Oxygen Flow Rate (L/min) [1 ( 2 Initial Baseline)] Oxygen Flow Rate (L/min) 1 Oxygen Delivery Method [4] Nasal Cannula Oxygen Delivery Method [3] Nasal Cannula Oxygen Delivery Method [2] Nasal Cannula Oxygen Delivery Method [1 ( Nasal Cannula Initial Baseline)] Oxygen Delivery Method Room Air Weight: 209 lb 8 oz Body Mass Index (BMI) 32.8 Intake & Output: Intake and Output for Last 24 Hours 05/15/21 05/16/21 05/17/21 23:59 23:59 23:59 Intake Total 1999 / 1999 3010.83 / 3610.83 2600 / 2600 Output Total 700 / 700 1700 / 2300 1000 / 1000 Balance 1300 / 1300 1310.83 / 1310.83 1600 / 1600 Lab / Micro Data Result Diagrams: 05/16/21 05:00 05/16/21 05:00 Labs: Laboratory Results - last 24 hr 05/16/21 05:00: Vitamin D 25-Hydroxy 30.5 05/16/21 12:36: POC Glucose 122 H 05/16/21 16:52: POC Glucose 123 H 05/16/21 21:11: POC Glucose 141 H 05/17/21 06:47: POC Glucose 105 Micro: Microbiology 05/14/21 17:17 Nasal Secretion SARS-CoV-2 Antigen (Rapid) - Final Physical Exam Narrative General - A&Ox3, NAD. VSS/AF Left lower extremity -incisional dressing C/D/I. Ankle spanning external fixator in place. SILT Sural, Saphenous, SPN, DPN, Tibial N. distributions. DP, PT 2+. BCR. FHL, EHL 5/5. No calf TTP. Left upper extremity-incisional dressing/splint clean dry and intact. Cardinal motions of the left hand are intact. Sensation intact light touch median/ulnar/radial nerve distributions left hand. Brisk capillary refill in the fingertips. No pain with passive stretch of digits. Assessment & Plan Assessment/Plan (1) Closed left ankle fracture: QUALIFIERS: Encounter type: initial encounter Qualified Code(s): S82.892A - Other fracture of left lower leg, initial encounter for closed fracture PLAN: see below (2) Left wrist fracture: QUALIFIERS: Encounter type: initial encounter Fracture type: closed Qualified Code(s): S62.102A - Fracture of unspecified carpal bone, left wrist, initial encounter for closed fracture PLAN: POD#1 s/p left distal radius closed reduction, application of dorsal spanning plate, closed reduction left ankle with application of joint spanning external fixator with wound debridements - Pain control - Medicine following for medical management - PT/OT -nonweightbearing left lower extremity, nonweightbearing left hand and wrist, okay to bear weight through the left elbow. - DVT PPX -Lovenox upon discharge x4 weeks -Patient stable from my standpoint. Plan to follow-up in approximately 2 weeks in my office. Plan for removal of external fixator and definitive fixation of the ankle depending on how wound healing progresses. -Discharge wound care instructions placed in the chart. They read: Wound care/dressing instructions: Left wrist-maintain splint, keep it clean, dry, and intact until follow-up w/ Dr. Mike in 2 weeks Left ankle -Daily dry sterile dressing changes to dorsal foot and anterior ankle wounds. Apply Silvadene cream and Adaptic to anterior medial ankle wound. Apply Adaptic to anterior lateral and dorsal foot wounds. Secure with Gudelia laird or Kerlix. Cleanse pin sites with hydrogen peroxide daily using a Q-tip. Okay to leave pin sites open to air. - Case management - D/C planning - placement -I will sign off at this time. Please do not hesitate to call if any questions or concerns arise.
[2021-05-17 12:01] LABS: Bedside Glucose 151 mg/dL (70-110)
--- NOTE | 2021-05-17 13:05 | CASEMGMT ---
SOFIA DESOUZA OBSERVATORY DIRECTOR DEO to room to meet with patient for initial transition planning/care coordination assessment. SOFIA DESOUZA introduced self and role at [facility]. Pt voices understanding and consents to assessment at this time. Pt resting in bed. Pt is A/O at this time and answers all questions appropriately. Care providers, pharmacy, and demographics verified/updated at this time. PCP: No PCP. Provided w/list of local PCP's Specialists:none [facility] Prescription Benefit: Yes Living Will/HPOA: Pt does not currently have LW/HCPOA and declines info at this time. LNOK: , [place] Living Arrangements: Lives w/ in 2-story home w/ramp entrance. Was independent prior to recent fall. Transportation: Pt states drives self and states no transportation concerns at this time. also drives. DME: Pt states there is DME @ the home that uses, that pt has access to, but did not use DME herself. HHC/SNF: Pt states realizes she is not able to go home w/her injuries and is willing to go to SNF. 1st preferences are to go to either [facility] or RU. PLAN: SNF [facility] HOWELL RN, CM
[2021-05-17 13:11] LABS: Absolute Lymphocyte Count 1.64 X10^3/uL (0.83-4.51); Absolute Neutrophil Count 7.3 X10^3/uL (2.0-7.7); Basophil# 0.02 X10^3/uL; Basophil% 0.2 % (0-1); Hematocrit 34.9 % (37-47); Hemoglobin 11.6 g/dL (12.0-15.0); Lymphocyte # 1.64 X10^3/ul (0.83-4.51); Lymphocyte % 16.1 % (19-41); Mean Corp Hgb Conc 33.2 g/dL (32-36); Mean Corpuscular Hgb 28.2 pg (27.0-32.0); Mean Corpuscular Volume 84.7 fL (81-99); Mean Platelet Vol. 8.4 fl (6.2-12.0); Monocyte# 1.08 X10^3/uL; Monocyte% 10.6 % (0-10); NRBC Flagged by Analyzer 0 % (0-5); Neutrophil # 7.32 X10^3/uL (2.7-7.7); Neutrophil % 71.7 % (47-70); Platelet Count 475 K/mm3 (150-450); RBC Distribution Width CV 12.8 % (11.6-14.6); RBC Distribution Width SD 38.9 fl (35.1-43.9); Red Blood Count 4.12 M/mm3 (4.2-5.4); White Blood Count 10.2 K/mm3 (4.4-11.0)
[2021-05-17 13:42] LABS: Anion Gap 6 (5-15); BUN 4 mg/dL (7-18); BUN/Creat Ratio 7.2 RATIO (10-20); Calcium,Total 8.3 mg/dL (8.5-10.1); Chloride 107 mmol/L (98-107); Creatinine, Serum 0.56 mg/dL (0.55-1.02); EST Glomerular Filtration Rate 118 mL/min (>60); Est Glom Filt Rate - Afr Amer 143 mL/min (>60); Estimated Creatinine Clearance 103.89 ml/min; Glucose 141 mg/dL (74-106); Potassium 3.8 mmol/L (3.5-5.1); Sodium Level 140 mmol/L (136-145)
--- NOTE | 2021-05-17 13:57 | WOUNDNOTE ---
In to attempt to cleanse pins sites and change dressing to the left lower leg/foot. patient states there is no way. I hurt just laying here without anyone touching it. States she told Dr Mike he needed to call in something stronger for her to take. Pt does have IV Dilaudid ordered, but currently does not have an IV in place. SOFIA Lopez to restart IV at this time. will discuss with SOFIA Martin. patient states I just wish he would cut it off. I can't take this pain. will hold off on dressing change for now.
--- NOTE | 2021-05-17 14:07 | NURSING ---
in to attempt iv restart. pt verbalizing she was having panic attack while attempting restart and requested nurse stop and return in 15minutes to reattempt.
--- NOTE | 2021-05-17 14:36 | CASEMGMT ---
Addendum entered by Sun Braswell 05/17/21 14:40: Patient was provided a list of SNF/RU providers including quality and resource use data and consistent with the patient?s preferred geographic region, medical needs, and insurance network. Original Note: Social Work Note SW updated that pt is agreeable to SNF and preferred provider is either [facility] or [facility]. SW placed a call to [facility] with TCU/RU. RU is able to accept pt pending pre-cert. SW in to speak with pt. SW introduced self and role at [facility]. Pt with current pain. Pt states that she has no IV access and is in pain at this time. SW offered support to pt. Pt state she had five brain surgeries and nothing compares to the pain she currently is in. SW asked pt about the news she recieved from the physician. Pt states that she was told her bones are shattered. SW offered support to pt. SW informed pt that [facility] is able to accept pt pending pre-cert. Pt states understanding. Plan: RU pending pre-cert Sun Braswell INSOLVENCY PRACTITIONER, MANAGER GAME
--- NOTE | 2021-05-17 14:56 | NURSING ---
this nurse spent nearly 40minutes with patient. pt verbalizing anxiety. pt states she takes marijuana at home occassionally. verbalized she also takes xanax when she can get it. verbalized she does not currently have a prescription for it but started taking xanax at the age of 28. pt also verbalized iv starts and needles trigger memories of her ex- whom she claims committed suicide from heroin use. pt also discussed her mother in law whom she states commited suicide by insulin overdose. pt states she does not have contact with her children. pt denies seeing an counselor at this time to assist with her anxiety. emotional support given. iv restarted. primary RN aware of above information
[2021-05-17] MEDS: 0.9% Saline Lock 10 ML Syringe IV (15:15)
[2021-05-17 16:05] LABS: Bedside Glucose 166 mg/dL (70-110)
--- NOTE | 2021-05-17 16:09 | WOUNDNOTE ---
wound photo: left lower leg
--- NOTE | 2021-05-17 16:09 | WOUNDNOTE ---
wound photo: left lower leg/foot
[2021-05-18 01:06] LABS: Bedside Glucose 130 mg/dL (70-110)
[2021-05-18] MEDS: HYDROmorphone 0.5 MG/0.5 ML SYRINGE 1 MG IV (01:54)
[2021-05-18 02:20] VITALS: BP 137/73; PULSE 85; RESP 16; TEMP 37.3; O2SAT 96
[2021-05-18] MEDS: 0.9% Normal Saline 1,000 ML 125 ML IV (03:51)
[2021-05-18] MEDS: Acetaminophen 500 MG Tablet 1000 MG PO ×3 (05:36→21:51)
[2021-05-18] MEDS: oxyCODONE 5 MG Tablet 10 MG PO ×5 (05:36→23:05)
[2021-05-18 06:26] LABS: Bedside Glucose 106 mg/dL (70-110)
[2021-05-18 06:44] LABS: Absolute Lymphocyte Count 1.84 X10^3/uL (0.83-4.51); Absolute Neutrophil Count 7.2 X10^3/uL (2.0-7.7); Basophil# 0.03 X10^3/uL; Basophil% 0.3 % (0-1); Eosinophil# 0.07 X10^3/uL; Eosinophils% 0.7 % (0-5); Hematocrit 37.2 % (37-47); Hemoglobin 12.3 g/dL (12.0-15.0); Lymphocyte # 1.84 X10^3/ul (0.83-4.51); Lymphocyte % 18.1 % (19-41); Mean Corp Hgb Conc 33.1 g/dL (32-36); Mean Corpuscular Hgb 28.1 pg (27.0-32.0); Mean Corpuscular Volume 84.9 fL (81-99); Mean Platelet Vol. 8.7 fl (6.2-12.0); Monocyte# 1.01 X10^3/uL; NRBC Flagged by Analyzer 0 % (0-5); Neutrophil # 7.15 X10^3/uL (2.7-7.7); Neutrophil % 70.5 % (47-70); Platelet Count 554 K/mm3 (150-450); RBC Distribution Width CV 12.7 % (11.6-14.6); RBC Distribution Width SD 38.9 fl (35.1-43.9); Red Blood Count 4.38 M/mm3 (4.2-5.4); White Blood Count 10.1 K/mm3 (4.4-11.0)
[2021-05-18 07:08] LABS: Anion Gap 6 (5-15); BUN 4 mg/dL (7-18); BUN/Creat Ratio 8.4 RATIO (10-20); Calcium,Total 8.6 mg/dL (8.5-10.1); Chloride 108 mmol/L (98-107); Creatinine, Serum 0.48 mg/dL (0.55-1.02); EST Glomerular Filtration Rate 141 mL/min (>60); Est Glom Filt Rate - Afr Amer 171 mL/min (>60); Glucose 102 mg/dL (74-106); Magnesium 2.4 mg/dL (1.6-2.6); Potassium 3.6 mmol/L (3.5-5.1); Sodium Level 141 mmol/L (136-145)
--- NOTE | 2021-05-18 07:43 | PCM.PN.HOSP ---
Subjective Subjective Patient seen requiring 2 person assist when ambulating. Did discuss with the patient about the need to be discharged [place] a [place] facility when ready. She now agrees. Patient will need insurance precertification prior to disposition Objective Data Objective Data Vital Signs: Vital Signs Temp Pulse Resp BP Pulse Ox 99.2 F H 85 16 137/73 H 96 05/18/21 02:20 05/18/21 02:20 05/18/21 02:20 05/18/21 02:20 05/18/21 02:20 Oxygen Flow Rate (L/min) [4] 2 Oxygen Flow Rate (L/min) [3] 2 Oxygen Flow Rate (L/min) [2] 2 Oxygen Flow Rate (L/min) [1 ( 2 Initial Baseline)] Oxygen Flow Rate (L/min) 1 Oxygen Delivery Method [4] Nasal Cannula Oxygen Delivery Method [3] Nasal Cannula Oxygen Delivery Method [2] Nasal Cannula Oxygen Delivery Method [1 ( Nasal Cannula Initial Baseline)] Oxygen Delivery Method Room Air Weight: 95.028 kg Body Mass Index (BMI) 32.8 Intake & Output: Intake and Output for Last 24 Hours 05/16/21 05/17/21 05/18/21 23:59 23:59 23:59 Intake Total 3010.83 / 3610.83 4200.00 / 4200.00 1920.83 / 1920.83 Output Total 1700 / 2300 3200 / 3200 1850 / 1850 Balance 1310.83 / 1310.83 1000.00 / 1000.00 70.83 / 70.83 Lab / Micro Data Result Diagrams: 05/18/21 05:40 05/18/21 05:40 Labs: Laboratory Results - last 24 hr 05/16/21 05:00: Vitamin D 25-Hydroxy 30.5 05/17/21 11:36: POC Glucose 151 H 05/17/21 12:50: WBC 10.2, RBC 4.12 L, Hgb 11.6 L, Hct 34.9 L, MCV 84.7, MCH 28.2, MCHC 33.2, RDW Std Deviation 38.9, RDW Coeff of Joleen 12.8, Plt Count 475 H, MPV 8.4, Immature Gran % (Auto) 0.400, Neut % (Auto) 71.7 H, Lymph % (Auto) 16.1 L, [place] % (Auto) 10.6 H, Eos % (Auto) 1.0, Baso % (Auto) 0.2, Absolute Neuts (auto) 7.3, Absolute Lymphs (auto) 1.64, Nucleated RBC % 0 05/17/21 12:50: Sodium 140, Potassium 3.8, Chloride 107, Carbon Dioxide 27.0, Anion Gap 6, BUN 4 L, Creatinine 0.56, Estim Creat Clear Calc 103.89, Est GFR (MDRD) Af Amer 143, Est GFR (MDRD) Non-Af 118, BUN/Creatinine Ratio 7.2 L, Glucose 141 H, Calcium 8.3 L 05/17/21 16:02: POC Glucose 166 H 05/17/21 20:31: POC Glucose 130 H 05/18/21 05:40: WBC 10.1, RBC 4.38, Hgb 12.3, Hct 37.2, MCV 84.9, MCH 28.1, MCHC 33.1, RDW Std Deviation 38.9, RDW Coeff of Joleen 12.7, Plt Count 554 H, MPV 8.7, Immature Gran % (Auto) 0.400, Neut % (Auto) 70.5 H, Lymph % (Auto) 18.1 L, [place] % (Auto) 10.0, Eos % (Auto) 0.7, Baso % (Auto) 0.3, Absolute Neuts (auto) 7.2, Absolute Lymphs (auto) 1.84, Nucleated RBC % 0 05/18/21 05:40: Sodium 141, Potassium 3.6, Chloride 108 H, Carbon Dioxide 27.0, Anion Gap 6, BUN 4 L, Creatinine 0.48 L, Estim Creat Clear Calc 121.20, Est GFR (MDRD) Af Amer 171, Est GFR (MDRD) Non-Af 141, BUN/Creatinine Ratio 8.4 L, Glucose 102, Calcium 8.6, Magnesium 2.4 05/18/21 06:18: POC Glucose 106 Micro: Microbiology 05/14/21 17:17 Nasal Secretion SARS-CoV-2 Antigen (Rapid) - Final Physical Exam Narrative GENERAL: cooperative HEENT: Atraumatic; EYES; Anicteric, Normal Conjunctiva NECK; supple, normal thyroid, RESPIRATORY: Diminished to auscultation CARDIOVASCULAR: Regular S1 S2, GI: soft, normoactive bowel sounds, : No Renal angle tenderness; EXTREMITIES: No edema, no clubbing, MUSCULOSKELETAL: Left upper extremity extremity immobilized; left lower extremity in a cast with an external fixator NEURO: Awake; no lateralizing signs. PSYCH; Flat affect Assessment & Plan Assessment/Plan (1) Closed left ankle fracture: QUALIFIERS: Encounter type: initial encounter Qualified Code(s): S82.892A - Other fracture of left lower leg, initial encounter for closed fracture (2) Left wrist fracture: QUALIFIERS: Encounter type: initial encounter Fracture type: closed Qualified Code(s): S62.102A - Fracture of unspecified carpal bone, left wrist, initial encounter for closed fracture PLAN: Patient is a 60-year-old lady who presented following a fall 2 weeks prior to admission. She was noted to have a left ankle fracture for which she underwent ORIF with an external fixator on 05/16/2021 1. Fall with left ankle fracture -Status post ORIF with an external fixator on 05/16/2021 2. Left wrist fracture ?Status post reduction currently immobilized 3. Physical deconditioning -Secondary to above, requested for PT OT eval and group social worker to assist with discharge planning -05/18/2021atient seen requiring 2 person assist when ambulating. Did discuss with the patient about the need to be [place] a [place] when ready. She now agrees. Patient will need insurance precertification prior to disposition 4. Diabetes mellitus type 2 ?Managed with diet and sliding scale insulin 5. History of brain aneurysm ?Status post coiling. Remains stable 6. DVT prophylaxis ?Lovenox 7. Class I obesity with BMI of 32 ?Weight loss advised Charges/Coding Visit Charges Inpatient E&M: 47047 Subs Hosp L2
[2021-05-18 08:20] VITALS: BP 125/68; PULSE 74; RESP 18; TEMP 36.8; O2SAT 96
--- NOTE | 2021-05-18 10:03 | CASEMGMT ---
Social Work Note ROSALIND reviewed chart. Pt with history of Anxiety and past history of family members committing suicide. SW in to speak with pt. SW informed pt that pre-cert for RU is still pending. Pt states she wants to talk to her and her neighbor Kena about pt going home. Pt states that her neighbor is there all the time and used to be an EMT. SW informed pt to wait to hear back from insurance regarding RU first. Pt states she will but states if she doesn't get into RU she wants to see about going home. SW informed pt that she will need 24/7 care and asked if her neighbor will be able to provide that. Pt states well she should, she's home all the time. SW spoke with pt about Mental Health Hx. Pt states she has Anxiety. Per pt's chart, pt has Anxiety and Depression. Pt states she is not currently on medication, states she will get a Xanax off a friend if she needs it. Pt states she used to be on Anxiety Medication and have a PCP at [place] but that was three years ago and she does not currently have a PCP. Pt denied any history of suicidal thoughts/plans/ideations. Pt denied any current suicidal thoughts/plans/ideations. Pt states that in her 20's and late 20's she saw a counselor. Pt denied currently seeing a counselor and denied wanting counseling resources. Pt states that she has a good support system. Pt states that she lives alone with her and she likes it like that. Pt states that her is independent and can take care of himself. Pt denied additional needs or concerns at this time. Plan: RU pending pre-cert Sun Braswell BARREL BRIDGE ASSEMBLER, GANG DRILL OPERATOR
[2021-05-18] MEDS: Enoxaparin 40 MG/0.4 ML Syringe SC (10:51)
[2021-05-18] MEDS: Menthol/Lanolin/Calamine/Znox 113 GM Tube 1 APPLIC TOPICAL ×2 (10:51→21:52)
[2021-05-18] MEDS: Nystatin Powder 15gm Bottle 1 APPLIC TOPICAL ×2 (10:52→21:52)
[2021-05-18] MEDS: ALPRAZolam 0.25 MG Tablet PO ×2 (11:08→21:52)
[2021-05-18 12:11] LABS: Bedside Glucose 133 mg/dL (70-110)
[2021-05-18 14:30] VITALS: BP 141/79; PULSE 86; RESP 18; TEMP 37; O2SAT 97
[2021-05-18 16:40] LABS: Bedside Glucose 119 mg/dL (70-110)
[2021-05-18 18:11] VITALS: BP 122/60; PULSE 78; RESP 18; TEMP 37.1; O2SAT 95
[2021-05-18 20:19] VITALS: BP 133/61; PULSE 80; RESP 16; TEMP 37.1; O2SAT 96
[2021-05-18 22:06] LABS: Bedside Glucose 139 mg/dL (70-110)
[2021-05-19 03:19] VITALS: BP 121/64; PULSE 73; RESP 14; TEMP 36.7; O2SAT 97
[2021-05-19] MEDS: oxyCODONE 5 MG Tablet 10 MG PO ×4 (03:21→17:08)
[2021-05-19] MEDS: Acetaminophen 500 MG Tablet 1000 MG PO ×3 (06:56→20:21)
[2021-05-19 07:02] LABS: Absolute Lymphocyte Count 1.85 X10^3/uL (0.83-4.51); Absolute Neutrophil Count 4.8 X10^3/uL (2.0-7.7); Basophil# 0.03 X10^3/uL; Basophil% 0.4 % (0-1); Eosinophil# 0.11 X10^3/uL; Eosinophils% 1.4 % (0-5); Hematocrit 36.8 % (37-47); Lymphocyte # 1.85 X10^3/ul (0.83-4.51); Lymphocyte % 23.8 % (19-41); Mean Corp Hgb Conc 32.6 g/dL (32-36); Mean Corpuscular Hgb 28.1 pg (27.0-32.0); Mean Corpuscular Volume 86.2 fL (81-99); Mean Platelet Vol. 8.6 fl (6.2-12.0); Monocyte# 0.94 X10^3/uL; Monocyte% 12.1 % (0-10); NRBC Flagged by Analyzer 0 % (0-5); Neutrophil # 4.81 X10^3/uL (2.7-7.7); Platelet Count 570 K/mm3 (150-450); RBC Distribution Width CV 12.9 % (11.6-14.6); RBC Distribution Width SD 40.3 fl (35.1-43.9); Red Blood Count 4.27 M/mm3 (4.2-5.4); White Blood Count 7.8 K/mm3 (4.4-11.0)
[2021-05-19 07:06] LABS: Bedside Glucose 99 mg/dL (70-110)
[2021-05-19 07:38] LABS: Anion Gap 8 (5-15); BUN 8 mg/dL (7-18); BUN/Creat Ratio 13.8 RATIO (10-20); Calcium,Total 8.9 mg/dL (8.5-10.1); Chloride 107 mmol/L (98-107); Creatinine, Serum 0.58 mg/dL (0.55-1.02); EST Glomerular Filtration Rate 113 mL/min (>60); Est Glom Filt Rate - Afr Amer 136 mL/min (>60); Estimated Creatinine Clearance 100.31 ml/min; Glucose 100 mg/dL (74-106); Potassium 3.6 mmol/L (3.5-5.1); Sodium Level 141 mmol/L (136-145)
--- NOTE | 2021-05-19 09:05 | PN.HOSP_ITS ---
Objective Data Objective Data Vital Signs: Vital Signs Temp Pulse Resp BP Pulse Ox 98.1 F 73 14 121/64 H 97 05/19/21 03:19 05/19/21 03:19 05/19/21 03:19 05/19/21 03:19 05/19/21 03:19 Oxygen Flow Rate (L/min) [4] 2 Oxygen Flow Rate (L/min) [3] 2 Oxygen Flow Rate (L/min) [2] 2 Oxygen Flow Rate (L/min) [1 ( 2 Initial Baseline)] Oxygen Flow Rate (L/min) 1 Oxygen Delivery Method [4] Nasal Cannula Oxygen Delivery Method [3] Nasal Cannula Oxygen Delivery Method [2] Nasal Cannula Oxygen Delivery Method [1 ( Nasal Cannula Initial Baseline)] Oxygen Delivery Method Room Air Weight: 209 lb 8 oz Body Mass Index (BMI) 32.8 Intake & Output: Intake and Output for Last 24 Hours 05/17/21 05/18/21 05/19/21 23:59 23:59 23:59 Intake Total 4200.00 / 4200.00 3930.00 / 3930.00 200 / 200 Output Total 3200 / 3200 4350 / 4350 550 / 550 Balance 1000.00 / 1000.00 -420.00 / -420.00 -350 / -350 Lab / Micro Data Result Diagrams: 05/19/21 05:55 05/19/21 05:55 Labs: Laboratory Results - last 24 hr 05/18/21 11:43: POC Glucose 133 H 05/18/21 16:22: POC Glucose 119 H 05/18/21 22:01: POC Glucose 139 H 05/19/21 05:55: WBC 7.8, RBC 4.27, Hgb 12.0, Hct 36.8 L, MCV 86.2, MCH 28.1, MCHC 32.6, RDW Std Deviation 40.3, RDW Coeff of Joleen 12.9, Plt Count 570 H, MPV 8.6, Immature Gran % (Auto) 0.300, Neut % (Auto) 62.0, Lymph % (Auto) 23.8, [place] % (Auto) 12.1 H, Eos % (Auto) 1.4, Baso % (Auto) 0.4, Absolute Neuts (auto) 4.8, Absolute Lymphs (auto) 1.85, Nucleated RBC % 0 05/19/21 05:55: Sodium 141, Potassium 3.6, Chloride 107, Carbon Dioxide 26.0, Anion Gap 8, BUN 8, Creatinine 0.58, Estim Creat Clear Calc 100.31, Est GFR (MDRD) Af Amer 136, Est GFR (MDRD) Non-Af 113, BUN/Creatinine Ratio 13.8, Glucose 100, Calcium 8.9 05/19/21 06:54: POC Glucose 99 Micro: Microbiology 05/14/21 17:17 Nasal Secretion SARS-CoV-2 Antigen (Rapid) - Final Physical Exam Narrative General: Alert, Oriented x3, Cooperative, in pain HEENT: Atraumatic, PERRLA, EOMI, Normocephalic Oral: No Gingival or Mucosal Lesions/ Ulcerations Neck: Supple, No JVD, Negative Carotid Bruits Lungs: Air entry diminished in bilateral lung bases. No crepitation/rhonchi Cardiovascular: Regular rate, Regular Rhythm, Normal S1, Normal S2, No murmurs Abdomen: Bowel Sounds Present, Soft, Non Tender, Non-Distended : No renal angle tenderness. No suprapubic tenderness. Extremities: No edema Skin: No rashes, No breakdown Musculoskeletal: Left ankle joint immobilized with external fixator. Venkat wrap bandage. Left wrist fracture, below elbow cast. Neurological: Cranial nerves II-XII grossly intact, DTR 2+/4 Psych/Mental Status: Mildly depressed. Assessment & Plan Assessment/Plan (1) Closed left ankle fracture: QUALIFIERS: Encounter type: initial encounter Qualified Code(s): S82.892A - Other fracture of left lower leg, initial encounter for closed fracture (2) Left wrist fracture: QUALIFIERS: Encounter type: initial encounter Fracture type: closed Qualified Code(s): S62.102A - Fracture of unspecified carpal bone, left wrist, initial encounter for closed fracture PLAN: Patient is a 60-year-old lady who presented following a fall 2 weeks prior to admission. She was noted to have a left ankle fracture for which she underwent ORIF with an external fixator on 05/16/2021 1. Fall with left ankle fracture -Status post ORIF with an external fixator on 05/16/202105/19 pain control. Plan is SNF discharge. 2. Left wrist fracture ?Status post reduction currently immobilized 3. Physical deconditioning due to fracture admission PT OT eval and social science research assistant to assist with discharge planning -1Patient seen requiring 2 person assist when ambulating. Did discuss with the patient about the need to be discharged to a correction facility when ready. She now agrees. Patient will need insurance precertification prior to disposition 4. Diabetes mellitus type 2 ?Managed with diet and sliding scale insulin 5. History of brain aneurysm ?Status post coiling. Remains stable 6. DVT prophylaxis ?Lovenox 7. Class I obesity with BMI of 32 ?Weight loss advised Charges/Coding Visit Charges Inpatient E&M: 43336 Subs Hosp L2
[2021-05-19 09:56] VITALS: BP 128/63; PULSE 71; RESP 18; TEMP 36.6; O2SAT 96
[2021-05-19] MEDS: ALPRAZolam 0.25 MG Tablet PO ×2 (10:00→20:20)
[2021-05-19] MEDS: Enoxaparin 40 MG/0.4 ML Syringe SC (10:00)
[2021-05-19] MEDS: Menthol/Lanolin/Calamine/Znox 113 GM Tube 1 APPLIC TOPICAL ×2 (10:00→20:19)
[2021-05-19] MEDS: Nystatin Powder 15gm Bottle 1 APPLIC TOPICAL ×2 (10:00→20:19)
--- NOTE | 2021-05-19 10:47 | CASEMGMT ---
SOCIAL WORK Call to [facility], shirley Lira waiting to speak with [facility] regarding precert. Will update this worker. Janak Pardo, INSTRUMENTATION MANAGER, CLUTCH ASSEMBLER
[2021-05-19 12:00] LABS: Bedside Glucose 127 mg/dL (70-110)
[2021-05-19 14:40] VITALS: BP 128/57; PULSE 68; RESP 16; TEMP 36.9; O2SAT 95
[2021-05-19 17:10] LABS: Bedside Glucose 113 mg/dL (70-110)
[2021-05-19] MEDS: Senna Tablet 2 TABLET PO (20:20)
[2021-05-19] MEDS: MELATONIN 10 MG TABLET PO (20:20)
[2021-05-19] MEDS: oxyCODONE CR 15 MG Tablet PO (20:20)
[2021-05-19] MEDS: Psyllium 1 PACKET PO (20:28)
[2021-05-19 20:33] VITALS: BP 123/60; PULSE 65; RESP 16; TEMP 36.8; O2SAT 98
[2021-05-19 20:35] LABS: Bedside Glucose 125 mg/dL (70-110)
[2021-05-20] MEDS: oxyCODONE 5 MG Tablet 10 MG PO ×3 (05:45→16:40)
[2021-05-20] MEDS: Acetaminophen 500 MG Tablet 1000 MG PO ×3 (05:46→21:13)
[2021-05-20 05:55] LABS: Absolute Lymphocyte Count 1.67 X10^3/uL (0.83-4.51); Absolute Neutrophil Count 3.9 X10^3/uL (2.0-7.7); Basophil# 0.04 X10^3/uL; Basophil% 0.6 % (0-1); Eosinophil# 0.07 X10^3/uL; Eosinophils% 1.1 % (0-5); Hematocrit 39.1 % (37-47); Hemoglobin 12.4 g/dL (12.0-15.0); Lymphocyte # 1.67 X10^3/ul (0.83-4.51); Mean Corp Hgb Conc 31.7 g/dL (32-36); Mean Corpuscular Hgb 27.7 pg (27.0-32.0); Mean Corpuscular Volume 87.3 fL (81-99); Mean Platelet Vol. 8.4 fl (6.2-12.0); Monocyte# 0.76 X10^3/uL; Monocyte% 11.8 % (0-10); NRBC Flagged by Analyzer 0 % (0-5); Neutrophil # 3.87 X10^3/uL (2.7-7.7); Neutrophil % 60.2 % (47-70); Platelet Count 586 K/mm3 (150-450); RBC Distribution Width CV 12.9 % (11.6-14.6); RBC Distribution Width SD 40.9 fl (35.1-43.9); Red Blood Count 4.48 M/mm3 (4.2-5.4); White Blood Count 6.4 K/mm3 (4.4-11.0)
[2021-05-20 05:57] VITALS: BP 140/67; PULSE 59; RESP 16; TEMP 36.3; O2SAT 99
[2021-05-20 06:49] LABS: Anion Gap 5 (5-15); BUN 14 mg/dL (7-18); BUN/Creat Ratio 20.4 RATIO (10-20); Calcium,Total 9.3 mg/dL (8.5-10.1); Chloride 108 mmol/L (98-107); Creatinine, Serum 0.68 mg/dL (0.55-1.02); EST Glomerular Filtration Rate 93 mL/min (>60); Est Glom Filt Rate - Afr Amer 112 mL/min (>60); Estimated Creatinine Clearance 85.56 ml/min; Glucose 108 mg/dL (74-106); Potassium 3.8 mmol/L (3.5-5.1); Sodium Level 141 mmol/L (136-145)
[2021-05-20 06:55] LABS: Bedside Glucose 112 mg/dL (70-110)
[2021-05-20] MEDS: oxyCODONE CR 15 MG Tablet PO ×2 (10:01→21:12)
[2021-05-20] MEDS: Nystatin Powder 15gm Bottle 1 APPLIC TOPICAL ×2 (10:02→21:17)
[2021-05-20] MEDS: Enoxaparin 40 MG/0.4 ML Syringe SC (10:02)
[2021-05-20 10:05] VITALS: BP 132/59; PULSE 67; RESP 16; TEMP 36.7; O2SAT 98
[2021-05-20] MEDS: Psyllium 1 PACKET PO (10:05)
[2021-05-20] MEDS: Menthol/Lanolin/Calamine/Znox 113 GM Tube 1 APPLIC TOPICAL ×2 (10:08→21:16)
[2021-05-20] MEDS: Senna Tablet 2 TABLET PO ×2 (10:12→21:13)
--- NOTE | 2021-05-20 10:35 | CASEMGMT ---
Social Work Telephone call from Inpatient Rehab, [facility]. Soraya reports to have checked on status of pre-cert and to have been told that it can take 48hours to process. Soraya reports to have submitted pre-cert two days ago and again yesterday but insurance states that it is still processing. Will continue to follow. Judit Faulkner MSW, LEILAS
[2021-05-20 12:05] LABS: Bedside Glucose 140 mg/dL (70-110)
--- NOTE | 2021-05-20 16:04 | PCM.PN.HOSP ---
Subjective Subjective No fever. Patient still needs 2 people assist. Mild relief of pain with addition of oxycodone control. Objective Data Objective Data Vital Signs: Vital Signs Temp Pulse Resp BP Pulse Ox 98.1 F 67 16 132/59 H 98 05/20/21 10:05 05/20/21 10:05 05/20/21 10:05 05/20/21 10:05 05/20/21 10:05 Oxygen Flow Rate (L/min) [4] 2 Oxygen Flow Rate (L/min) [3] 2 Oxygen Flow Rate (L/min) [2] 2 Oxygen Flow Rate (L/min) [1 ( 2 Initial Baseline)] Oxygen Flow Rate (L/min) 1 Oxygen Delivery Method [4] Nasal Cannula Oxygen Delivery Method [3] Nasal Cannula Oxygen Delivery Method [2] Nasal Cannula Oxygen Delivery Method [1 ( Nasal Cannula Initial Baseline)] Oxygen Delivery Method Room Air Weight: 209 lb 8 oz Body Mass Index (BMI) 32.8 Intake & Output: Intake and Output for Last 24 Hours 05/18/21 05/19/21 05/20/21 23:59 23:59 23:59 Intake Total 3930.00 / 3930.00 600 / 600 400 / 400 Output Total 4350 / 4350 1150 / 1150 1300 / 1300 Balance -420.00 / -420.00 -550 / -550 -900 / -900 Lab / Micro Data Result Diagrams: 05/20/21 05:25 05/20/21 05:25 Labs: Laboratory Results - last 24 hr 05/19/21 17:02: POC Glucose 113 H 05/19/21 20:31: POC Glucose 125 H 05/20/21 05:25: WBC 6.4, RBC 4.48, Hgb 12.4, Hct 39.1, MCV 87.3, MCH 27.7, MCHC 31.7 L, RDW Std Deviation 40.9, RDW Coeff of Joleen 12.9, Plt Count 586 H, MPV 8.4, Immature Gran % (Auto) 0.300, Neut % (Auto) 60.2, Lymph % (Auto) 26.0, [place] % (Auto) 11.8 H, Eos % (Auto) 1.1, Baso % (Auto) 0.6, Absolute Neuts (auto) 3.9, Absolute Lymphs (auto) 1.67, Nucleated RBC % 0 05/20/21 05:25: Sodium 141, Potassium 3.8, Chloride 108 H, Carbon Dioxide 28.0, Anion Gap 5, BUN 14, Creatinine 0.68, Estim Creat Clear Calc 85.56, Est GFR (MDRD) Af Amer 112, Est GFR (MDRD) Non-Af 93, BUN/Creatinine Ratio 20.4 H, Glucose 108 H, Calcium 9.3 05/20/21 06:05: POC Glucose 112 H 05/20/21 11:25: POC Glucose 140 H Micro: Microbiology 05/14/21 17:17 Nasal Secretion SARS-CoV-2 Antigen (Rapid) - Final Physical Exam Narrative General: Alert, Oriented x3, Cooperative, in pain HEENT: Atraumatic, PERRLA, EOMI, Normocephalic Oral: No Gingival or Mucosal Lesions/ Ulcerations Neck: Supple, No JVD, Negative Carotid Bruits Lungs: Air entry diminished in bilateral lung bases. No crepitation/rhonchi Cardiovascular: Regular rate, Regular Rhythm, Normal S1, Normal S2, No murmurs Abdomen: Bowel Sounds Present, Soft, Non Tender, Non-Distended : No renal angle tenderness. No suprapubic tenderness. Extremities: No edema Skin: No rashes, No breakdown Musculoskeletal: Left ankle joint immobilized with external fixator. Venkat wrap bandage. Left wrist fracture, below elbow cast. Neurological: Cranial nerves II-XII grossly intact, DTR 2+/4 Psych/Mental Status: Mildly depressed. Assessment & Plan Assessment/Plan (1) Closed left ankle fracture: QUALIFIERS: Encounter type: initial encounter Qualified Code(s): S82.892A - Other fracture of left lower leg, initial encounter for closed fracture (2) Left wrist fracture: QUALIFIERS: Encounter type: initial encounter Fracture type: closed Qualified Code(s): S62.102A - Fracture of unspecified carpal bone, left wrist, initial encounter for closed fracture PLAN: Patient is a 60-year-old lady who presented following a fall 2 weeks prior to admission. She was noted to have a left ankle fracture for which she underwent ORIF with an external fixator on 05/16/2021 1. Fall with left ankle fracture -Status post ORIF with an external fixator on 05/16/202105/19 pain control. Plan is SNF discharge. 05/20: Patient has continued pain over external fixator site, left ankle. I started on oxycodone 50 mg twice daily controlled-release on 05/19. On BuSpar. Requires [address] Mike signed off on 05/17. I asked charge nurse to notify him to evaluate the patient and address the pain at the ankle site/external fixator site. 2. Left wrist fracture ?Status post reduction currently immobilized 3. Physical deconditioning due to fracture admission PT OT eval and pediatric social worker to assist with discharge planning -1Patient seen requiring 2 person assist when ambulating. Did discuss with the patient about the need to be discharged to a senior care facility when ready. She now agrees. Patient will need insurance precertification prior to disposition 4. Diabetes mellitus type 2 ?Managed with diet and sliding scale insulin 5. History of brain aneurysm ?Status post coiling. Remains stable 6. DVT prophylaxis ?Lovenox 7. Class I obesity with BMI of 32 ?Weight loss advised Charges/Coding Visit Charges Inpatient E&M: 66257 Subs Hosp L2
[2021-05-20 16:36] VITALS: BP 119/73; PULSE 64; RESP 18; TEMP 36.6; O2SAT 96
--- NOTE | 2021-05-20 16:46 | RAD_ITS ---
HISTORY: Pain. External fixation surgery on 1226. EXAMINATION/TECHNIQUE: XR Ankle 2 Views: AP and lateral views left ankle COMPARISON: Left ankle radiographs from 05/14/21 FINDINGS: In the interval, patient is status post external fixation with hardware extending from mid shaft tibia to hindfoot. Acute partially displaced fractures distal fibular metaphysis, distal tibia posterior malleolus and medial malleolus again noted. There are also healed fractures distal tibia and fibula. Adequate alignment at the ankle, post reduction. RAD/Ankle 2 Views IMPRESSION: External fixation hardware spanning partially displaced trimalleolar left ankle fractures. at 0205 Reported and signed by: French Barba MD Electronically Signed: French Barba MD at 2:04 EST Tel , Service support ,
--- NOTE | 2021-05-20 17:20 | PCM.PN.ORT ---
Subjective Subjective Patient seen and examined. I was notified by nursing staff regarding her worsening pain and her desire to speak to me. She expressed significant fear and anxiety regarding her injuries. She states she has significant pain in the ankle, however this is relatively unchanged from surgery. States that she is moving her fingers well. States the plan is to be discharged to rehab. Objective Data Objective Data Vital Signs: Vital Signs Temp Pulse Resp BP Pulse Ox 97.8 F 64 18 119/73 96 05/20/21 16:36 05/20/21 16:36 05/20/21 16:36 05/20/21 16:36 05/20/21 16:36 Oxygen Flow Rate (L/min) [4] 2 Oxygen Flow Rate (L/min) [3] 2 Oxygen Flow Rate (L/min) [2] 2 Oxygen Flow Rate (L/min) [1 ( 2 Initial Baseline)] Oxygen Flow Rate (L/min) 1 Oxygen Delivery Method [4] Nasal Cannula Oxygen Delivery Method [3] Nasal Cannula Oxygen Delivery Method [2] Nasal Cannula Oxygen Delivery Method [1 ( Nasal Cannula Initial Baseline)] Oxygen Delivery Method Room Air Weight: 209 lb 8 oz Body Mass Index (BMI) 32.8 Intake & Output: Intake and Output for Last 24 Hours 05/18/21 05/19/21 05/20/21 23:59 23:59 23:59 Intake Total 3930.00 / 3930.00 600 / 600 400 / 400 Output Total 4350 / 4350 1150 / 1150 1300 / 1300 Balance -420.00 / -420.00 -550 / -550 -900 / -900 Lab / Micro Data Result Diagrams: 05/20/21 05:25 05/20/21 05:25 Labs: Laboratory Results - last 24 hr 05/19/21 20:31: POC Glucose 125 H 05/20/21 05:25: WBC 6.4, RBC 4.48, Hgb 12.4, Hct 39.1, MCV 87.3, MCH 27.7, MCHC 31.7 L, RDW Std Deviation 40.9, RDW Coeff of Joleen 12.9, Plt Count 586 H, MPV 8.4, Immature Gran % (Auto) 0.300, Neut % (Auto) 60.2, Lymph % (Auto) 26.0, Cataño % (Auto) 11.8 H, Eos % (Auto) 1.1, Baso % (Auto) 0.6, Absolute Neuts (auto) 3.9, Absolute Lymphs (auto) 1.67, Nucleated RBC % 0 05/20/21 05:25: Sodium 141, Potassium 3.8, Chloride 108 H, Carbon Dioxide 28.0, Anion Gap 5, BUN 14, Creatinine 0.68, Estim Creat Clear Calc 85.56, Est GFR (MDRD) Af Amer 112, Est GFR (MDRD) Non-Af 93, BUN/Creatinine Ratio 20.4 H, Glucose 108 H, Calcium 9.3 05/20/21 06:05: POC Glucose 112 H 05/20/21 11:25: POC Glucose 140 H Micro: Microbiology 05/14/21 17:17 Nasal Secretion SARS-CoV-2 Antigen (Rapid) - Final Physical Exam Narrative General - A&Ox3, NAD. VSS/AF Left lower extremity -incisional dressing C/D/I. Anterior medial wound examined and appears to be granulating well without signs or symptoms of infection. Ankle spanning external fixator in place, pin sites benign. SILT Sural, Saphenous, SPN, DPN, Tibial N. distributions. DP, PT 2+. BCR. FHL, EHL 5/5. No calf TTP. Left upper extremity-incisional dressing/splint clean dry and intact. Cardinal motions of the left hand are intact. Sensation intact light touch median/ulnar/radial nerve distributions left hand. Brisk capillary refill in the fingertips. No pain with passive stretch of digits. Assessment & Plan Assessment/Plan (1) Closed left ankle fracture: QUALIFIERS: Encounter type: initial encounter Qualified Code(s): S82.892A - Other fracture of left lower leg, initial encounter for closed fracture PLAN: see below (2) Left wrist fracture: QUALIFIERS: Encounter type: initial encounter Fracture type: closed Qualified Code(s): S62.102A - Fracture of unspecified carpal bone, left wrist, initial encounter for closed fracture PLAN: POD#4 s/p left distal radius closed reduction, application of dorsal spanning plate, closed reduction left ankle with application of joint spanning external fixator with wound debridements -X-rays were obtained and reviewed. There does appear to be some residual subluxation of the joint after application of external fixator. I reviewed this with the patient. I explained that this amount of movement is likely not enough to warrant another round of anesthesia for adjustment of her external fixator. Her wounds appear to be healing well. I suspect an element of her pain is due to fear, anxiety, and poor coping skills. She expresses understanding of her own anxieties. We had a thorough discussion regarding learning to live with the external fixator on and not to be afraid of the appearance of her ankle. She appeared much more calm after our discussion. - Pain control - Medicine following for medical management - PT/OT -nonweightbearing left lower extremity, nonweightbearing left hand and wrist, okay to bear weight through the left elbow. - DVT PPX -Lovenox upon discharge x4 weeks -Patient stable from my standpoint. Plan to follow-up the week of 05/31- in my office. Plan for removal of external fixator and definitive fixation of the ankle depending on how wound healing progresses. -Discharge wound care instructions placed in the chart. They read: Wound care/dressing instructions: Left wrist-maintain splint, keep it clean, dry, and intact until follow-up w/ Dr. Mike in 2 weeks Left ankle -Daily dry sterile dressing changes to dorsal foot and anterior ankle wounds. Apply Silvadene cream and Adaptic to anterior medial ankle wound. Apply Adaptic to anterior lateral and dorsal foot wounds. Secure with Gudelia wrap or Kerlix. Cleanse pin sites with hydrogen peroxide daily using a Q-tip. Okay to leave pin sites open to air. - Case management - D/C planning - placement
[2021-05-20 17:26] LABS: Bedside Glucose 128 mg/dL (70-110)
[2021-05-20 20:52] VITALS: BP 135/76; PULSE 76; RESP 15; TEMP 36.6; O2SAT 96
[2021-05-20] MEDS: busPIRone 5 MG Tablet 10 MG PO (21:27)
[2021-05-20 21:36] LABS: Bedside Glucose 125 mg/dL (70-110)
[2021-05-21] MEDS: oxyCODONE 5 MG Tablet 10 MG PO ×3 (02:26→18:12)
[2021-05-21 02:29] VITALS: BP 149/72; PULSE 73; RESP 18; TEMP 36.6; O2SAT 100
[2021-05-21] MEDS: ALPRAZolam 0.25 MG Tablet PO ×4 (02:47→22:03)
--- NOTE | 2021-05-21 03:00 | EKG12_ITS ---
Test Reason : CP Blood Pressure : / mmHG Vent. Rate : 069 BPM Atrial Rate : 069 BPM P-R Int : 158 ms QRS Dur : 082 ms QT Int : 386 ms P-R-T Axes : 026 004 029 degrees QTc Int : 413 ms Normal sinus rhythm Normal ECG Confirmed by DALE HIGUERA, BUCKY ([id number]), features editor MIYA FELIX ([id number]) on 06/03/2021 8:37:57 AM Referred By: ULISES Confirmed By:BUCKY HUNTER MD
[2021-05-21] MEDS: Acetaminophen 500 MG Tablet 1000 MG PO ×3 (06:39→22:04)
[2021-05-21 06:51] LABS: Bedside Glucose 106 mg/dL (70-110)
[2021-05-21 07:56] LABS: Troponin-I HS 5 pg/mL (3.0-54.0)
[2021-05-21 08:47] VITALS: BP 124/65; PULSE 59; RESP 18; TEMP 36.6; O2SAT 97
[2021-05-21] MEDS: oxyCODONE CR 15 MG Tablet PO ×2 (10:32→22:03)
[2021-05-21] MEDS: busPIRone 5 MG Tablet 10 MG PO ×2 (10:33→22:04)
[2021-05-21] MEDS: Nystatin Powder 15gm Bottle 1 APPLIC TOPICAL (10:34)
[2021-05-21] MEDS: Psyllium 1 PACKET PO ×2 (10:34→22:03)
[2021-05-21] MEDS: Enoxaparin 40 MG/0.4 ML Syringe SC (10:34)
[2021-05-21] MEDS: Menthol/Lanolin/Calamine/Znox 113 GM Tube 1 APPLIC TOPICAL (10:34)
[2021-05-21] MEDS: Senna Tablet 2 TABLET PO (10:36)
--- NOTE | 2021-05-21 10:46 | PN.HOSP_ITS ---
Subjective Subjective Patient is having panic attack with palpitation, shortness of breath chest pain and dizziness. Ortho follow-up appreciated. Objective Data Objective Data Vital Signs: Vital Signs Temp Pulse Resp BP Pulse Ox 97.8 F 59 L 18 124/65 H 97 05/21/21 08:47 05/21/21 08:47 05/21/21 08:47 05/21/21 08:47 05/21/21 08:47 Oxygen Flow Rate (L/min) [4] 2 Oxygen Flow Rate (L/min) [3] 2 Oxygen Flow Rate (L/min) [2] 2 Oxygen Flow Rate (L/min) [1 ( 2 Initial Baseline)] Oxygen Flow Rate (L/min) 1 Oxygen Delivery Method [4] Nasal Cannula Oxygen Delivery Method [3] Nasal Cannula Oxygen Delivery Method [2] Nasal Cannula Oxygen Delivery Method [1 ( Nasal Cannula Initial Baseline)] Oxygen Delivery Method Room Air Weight: 209 lb 8 oz Body Mass Index (BMI) 32.8 Intake & Output: Intake and Output for Last 24 Hours 05/19/21 05/20/21 05/21/21 23:59 23:59 23:59 Intake Total 600 / 600 400 / 400 Output Total 1150 / 1150 1300 / 1300 700 / 700 Balance -550 / -550 -900 / -900 -700 / -700 Lab / Micro Data Result Diagrams: 05/20/21 05:25 05/20/21 05:25 Labs: Laboratory Results - last 24 hr 05/20/21 11:25: POC Glucose 140 H 05/20/21 17:22: POC Glucose 128 H 05/20/21 21:32: POC Glucose 125 H 05/21/21 06:37: POC Glucose 106 05/21/21 07:00: Troponin I High Sens 5 Micro: Microbiology 05/14/21 17:17 Nasal Secretion SARS-CoV-2 Antigen (Rapid) - Final Radiography Diagnostic Testing: Radiology Impression Ankle X-Ray 05/20/21 16:46 IMPRESSION: External fixation hardware spanning partially displaced trimalleolar left ankle fractures. at 0205 Reported and signed by: French Barba MD Electronically Signed: French Barba MD at 2:04 EST Tel , Service support , Physical Exam Narrative General: Alert, Oriented x3, Cooperative, in pain HEENT: Atraumatic, PERRLA, EOMI, Normocephalic Oral: No Gingival or Mucosal Lesions/ Ulcerations Neck: Supple, No JVD, Negative Carotid Bruits Lungs: Air entry diminished in bilateral lung bases. No crepitation/rhonchi Cardiovascular: Regular rate, Regular Rhythm, Normal S1, Normal S2, No murmurs Abdomen: Bowel Sounds Present, Soft, Non Tender, Non-Distended : No renal angle tenderness. No suprapubic tenderness. Extremities: No edema Skin: No rashes, No breakdown Musculoskeletal: Left ankle joint immobilized with external fixator. Venkat wrap bandage. Left wrist fracture, below elbow cast. Neurological: Cranial nerves II-XII grossly intact, DTR 2+/4 Psych/Mental Status: Mildly depressed. Assessment & Plan Assessment/Plan (1) Closed left ankle fracture: QUALIFIERS: Encounter type: initial encounter Qualified Code(s): S82.892A - Other fracture of left lower leg, initial encounter for closed fracture (2) Left wrist fracture: QUALIFIERS: Encounter type: initial encounter Fracture type: closed Qualified Code(s): S62.102A - Fracture of unspecified carpal bone, left wrist, initial encounter for closed fracture PLAN: Patient is a 60-year-old lady who presented following a fall 2 weeks prior to admission. She was noted to have a left ankle fracture for which she underwent ORIF with an external fixator on 05/16/2021 1. Fall with left ankle fracture -Status post ORIF with an external fixator on 05/16/202105/19 pain control. Plan is SNF discharge. 05/20: Patient has continued pain over external fixator site, left ankle. I started on oxycodone 50 mg twice daily controlled-release on 05/19. On BuSpar. Requires [address] Mike signed off on 05/17. I asked charge nurse to notify him to evaluate the patient and address the pain at the ankle site/external fixator site. 05/21:Some residual subluxation of the Ankle joint after external fixator. OrthoSurgeon satisfied with the progress of healing.Plan to follow-up on 7 to 10 days In Ortho clinic. Patient also did not move all 4 for 5 days. On senna S, MiraLAX and psyllium. Patient having panic attack: Troponin normal. Twelve-lead EKG Done shows normal sinus rhythm with nonspecific ST-T changes suggestive of ischemia. No significant change from the previous EKG of 15 May 2021. 2. Left wrist fracture ?Status post reduction currently immobilized 3. Physical deconditioning due to fracture admission PT OT eval and outreach and education social worker to assist with discharge planning -1Patient seen requiring 2 person assist when ambulating. Did discuss with the patient about the need to be discharged to a alf facility when ready. She now agrees. Patient will need insurance precertification prior to disposition 4. Diabetes mellitus type 2 ?Managed with diet and sliding scale insulin 5. History of brain aneurysm ?Status post coiling. Remains stable 6. DVT prophylaxis ?Lovenox 7. Class I obesity with BMI of 32 ?Weight loss advised Charges/Coding Visit Charges Inpatient E&M: 86518 Subs Hosp L2
[2021-05-21 12:15] LABS: Bedside Glucose 130 mg/dL (70-110)
[2021-05-21 15:02] VITALS: BP 110/63; PULSE 67; RESP 18; TEMP 36.7; O2SAT 97
[2021-05-21 16:36] LABS: Bedside Glucose 142 mg/dL (70-110)
[2021-05-21] MEDS: Polyethylene Glycol 3350 17 GM PACKET PO (16:40)
[2021-05-21 20:02] VITALS: BP 91/45; PULSE 65; RESP 18; TEMP 36.6; O2SAT 95
[2021-05-21 21:59] VITALS: BP 95/57; PULSE 67; RESP 18; TEMP 36.4; O2SAT 94
[2021-05-21] MEDS: Senna/Docusate Sodium 1 Tablet 2 TABLET PO (22:04)
[2021-05-21 22:16] LABS: Bedside Glucose 141 mg/dL (70-110)
[2021-05-22 04:14] VITALS: BP 108/57; PULSE 66; RESP 18; TEMP 36.6; O2SAT 100
[2021-05-22] MEDS: oxyCODONE 5 MG Tablet 10 MG PO ×4 (04:26→18:52)
[2021-05-22] MEDS: Acetaminophen 500 MG Tablet 1000 MG PO ×3 (04:26→22:36)
[2021-05-22] MEDS: ALPRAZolam 0.25 MG Tablet PO ×3 (06:42→22:35)
[2021-05-22 06:44] LABS: Absolute Lymphocyte Count 2.27 X10^3/uL (0.83-4.51); Absolute Neutrophil Count 3.5 X10^3/uL (2.0-7.7); Basophil# 0.05 X10^3/uL; Basophil% 0.7 % (0-1); Eosinophil# 0.09 X10^3/uL; Eosinophils% 1.3 % (0-5); Hematocrit 41.1 % (37-47); Hemoglobin 13.1 g/dL (12.0-15.0); Lymphocyte # 2.27 X10^3/ul (0.83-4.51); Lymphocyte % 33.2 % (19-41); Mean Corp Hgb Conc 31.9 g/dL (32-36); Mean Corpuscular Hgb 28.3 pg (27.0-32.0); Mean Corpuscular Volume 88.8 fL (81-99); Mean Platelet Vol. 8.4 fl (6.2-12.0); Monocyte# 0.87 X10^3/uL; Monocyte% 12.7 % (0-10); NRBC Flagged by Analyzer 0 % (0-5); Neutrophil # 3.53 X10^3/uL (2.7-7.7); Neutrophil % 51.8 % (47-70); Platelet Count 602 K/mm3 (150-450); RBC Distribution Width CV 13.2 % (11.6-14.6); RBC Distribution Width SD 42.8 fl (35.1-43.9); Red Blood Count 4.63 M/mm3 (4.2-5.4); White Blood Count 6.8 K/mm3 (4.4-11.0)
[2021-05-22 06:56] LABS: Bedside Glucose 93 mg/dL (70-110)
[2021-05-22 07:08] LABS: Anion Gap 6 (5-15); BUN 14 mg/dL (7-18); BUN/Creat Ratio 19.6 RATIO (10-20); Calcium,Total 9.1 mg/dL (8.5-10.1); Chloride 105 mmol/L (98-107); Creatinine, Serum 0.72 mg/dL (0.55-1.02); EST Glomerular Filtration Rate 88 mL/min (>60); Est Glom Filt Rate - Afr Amer 107 mL/min (>60); Glucose 95 mg/dL (74-106); Sodium Level 141 mmol/L (136-145)
[2021-05-22] MEDS: oxyCODONE CR 15 MG Tablet PO ×2 (10:11→22:35)
[2021-05-22] MEDS: Senna/Docusate Sodium 1 Tablet 2 TABLET PO (10:12)
[2021-05-22] MEDS: busPIRone 5 MG Tablet 10 MG PO ×2 (10:12→22:35)
[2021-05-22] MEDS: Enoxaparin 40 MG/0.4 ML Syringe SC (10:12)
[2021-05-22] MEDS: Menthol/Lanolin/Calamine/Znox 113 GM Tube 1 APPLIC TOPICAL (10:12)
[2021-05-22] MEDS: Polyethylene Glycol 3350 17 GM PACKET PO (10:12)
[2021-05-22] MEDS: Psyllium 1 PACKET PO (10:12)
[2021-05-22] MEDS: Nystatin Powder 15gm Bottle 1 APPLIC TOPICAL (10:13)
[2021-05-22 10:15] VITALS: BP 126/66; PULSE 69; RESP 18; TEMP 36.6; O2SAT 98
[2021-05-22 11:55] LABS: Bedside Glucose 148 mg/dL (70-110)
--- NOTE | 2021-05-22 14:40 | PN.HOSP_ITS ---
Subjective Subjective Patient still feels depressed and anxious about pain. Patient is on multiple pain medications. Patient also moved bowel. Objective Data Objective Data Vital Signs: Vital Signs Temp Pulse Resp BP Pulse Ox 97.9 F 69 18 126/66 H 98 05/22/21 10:15 05/22/21 10:15 05/22/21 10:15 05/22/21 10:15 05/22/21 10:15 Oxygen Flow Rate (L/min) [4] 2 Oxygen Flow Rate (L/min) [3] 2 Oxygen Flow Rate (L/min) [2] 2 Oxygen Flow Rate (L/min) [1 ( 2 Initial Baseline)] Oxygen Flow Rate (L/min) 1 Oxygen Delivery Method [4] Nasal Cannula Oxygen Delivery Method [3] Nasal Cannula Oxygen Delivery Method [2] Nasal Cannula Oxygen Delivery Method [1 ( Nasal Cannula Initial Baseline)] Oxygen Delivery Method Room Air Weight: 209 lb 8 oz Body Mass Index (BMI) 32.8 Intake & Output: Intake and Output for Last 24 Hours 05/20/21 05/21/21 05/22/21 23:59 23:59 23:59 Intake Total 400 / 400 350 / 350 Output Total 1300 / 1300 1500 / 1500 0 / 0 Balance -900 / -900 -1150 / -1150 0 / 0 Lab / Micro Data Result Diagrams: 05/22/21 05:45 05/22/21 05:45 Labs: Laboratory Results - last 24 hr 05/21/21 16:30: POC Glucose 142 H 05/21/21 22:02: POC Glucose 141 H 05/22/21 05:45: WBC 6.8, RBC 4.63, Hgb 13.1, Hct 41.1, MCV 88.8, MCH 28.3, MCHC 31.9 L, RDW Std Deviation 42.8, RDW Coeff of Joleen 13.2, Plt Count 602 H, MPV 8.4, Immature Gran % (Auto) 0.300, Neut % (Auto) 51.8, Lymph % (Auto) 33.2, Metcalfe % (Auto) 12.7 H, Eos % (Auto) 1.3, Baso % (Auto) 0.7, Absolute Neuts (auto) 3.5, Absolute Lymphs (auto) 2.27, Nucleated RBC % 0 05/22/21 05:45: Sodium 141, Potassium 4.0, Chloride 105, Carbon Dioxide 30.0, Anion Gap 6, BUN 14, Creatinine 0.72, Estim Creat Clear Calc 80.80, Est GFR (MDRD) Af Amer 107, Est GFR (MDRD) Non-Af 88, BUN/Creatinine Ratio 19.6, Glucose 95, Calcium 9.1 05/22/21 06:41: POC Glucose 93 05/22/21 11:44: POC Glucose 148 H Micro: Microbiology 05/14/21 17:17 Nasal Secretion SARS-CoV-2 Antigen (Rapid) - Final Physical Exam Narrative General: Alert, Oriented x3, Cooperative, in pain HEENT: Atraumatic, PERRLA, EOMI, Normocephalic Oral: No Gingival or Mucosal Lesions/ Ulcerations Neck: Supple, No JVD, Negative Carotid Bruits Lungs: Air entry diminished in bilateral lung bases. No crepitation/rhonchi Cardiovascular: Regular rate, Regular Rhythm, Normal S1, Normal S2, No murmurs Abdomen: Bowel Sounds Present, Soft, Non Tender, Non-Distended : No renal angle tenderness. No suprapubic tenderness. Extremities: No edema Skin: No rashes, No breakdown Musculoskeletal: Left ankle joint immobilized with external fixator. Venkat wrap bandage. Left wrist fracture, below elbow cast. Neurological: Cranial nerves II-XII grossly intact, DTR 2+/4 Psych/Mental Status: Mildly depressed. Anxiety Assessment & Plan Assessment/Plan (1) Closed left ankle fracture: QUALIFIERS: Encounter type: initial encounter Qualified Code(s): S82.892A - Other fracture of left lower leg, initial encounter for closed fracture (2) Left wrist fracture: QUALIFIERS: Encounter type: initial encounter Fracture type: closed Qualified Code(s): S62.102A - Fracture of unspecified carpal bone, left wrist, initial encounter for closed fracture PLAN: Patient is a 60-year-old lady who presented following a fall 2 weeks prior to admission. She was noted to have a left ankle fracture for which she underwent ORIF with an external fixator on 05/16/2021 1. Fall with left ankle fracture -Status post ORIF with an external fixator on 05/16/202105/19 pain control. Plan is SNF discharge. 05/20: Patient has continued pain over external fixator site, left ankle. I started on oxycodone 50 mg twice daily controlled-release on 05/19. On BuSpar. Requires [address] Mike signed off on 05/17. I asked charge nurse to notify him to evaluate the patient and address the pain at the ankle site/external fixator site. 05/21:Some residual subluxation of the Ankle joint after external fixator. OrthoSurgeon satisfied with the progress of healing.Plan to follow-up on 7 to 10 days In Ortho clinic. Patient also did not move all 4 for 5 days. On senna S, MiraLAX and psyllium. 05/22: Patient was convinced that she is on multiple pain medication, antianxiety medications. She moved the bowel. Waiting for precertification to go to snf. Patient having panic attack: Troponin normal. Twelve-lead EKG Done shows normal sinus rhythm with nonspecific ST-T changes suggestive of ischemia. No significant change from the previous EKG of 15 May 2021. 2. Left wrist fracture ?Status post reduction currently immobilized 3. Physical deconditioning due to fracture admission PT OT eval and social sciences department chair to assist with discharge planning -1Patient seen requiring 2 person assist when ambulating. Did discuss with the patient about the need to be discharged to a intermediate facility when ready. She now agrees. Patient will need insurance precertification prior to disposition 4. Diabetes mellitus type 2 ?Managed with diet and sliding scale insulin 5. History of brain aneurysm ?Status post coiling. Remains stable 6. DVT prophylaxis ?Lovenox 7. Class I obesity with BMI of 32 ?Weight loss advised Charges/Coding Visit Charges Inpatient E&M: 76900 Subs Hosp L2
[2021-05-22 14:50] VITALS: BP 112/65; PULSE 59; RESP 16; TEMP 36.8; O2SAT 94
[2021-05-22 22:28] VITALS: BP 114/55; PULSE 67; RESP 16; TEMP 37; O2SAT 95
[2021-05-23 04:21] VITALS: BP 105/61; PULSE 61; RESP 16; TEMP 37.1; O2SAT 93
[2021-05-23] MEDS: oxyCODONE 5 MG Tablet 10 MG PO ×4 (04:23→17:32)
[2021-05-23] MEDS: Acetaminophen 500 MG Tablet 1000 MG PO ×3 (05:39→21:29)
[2021-05-23] MEDS: ALPRAZolam 0.25 MG Tablet PO (05:39)
[2021-05-23 08:55] VITALS: BP 114/53; PULSE 69; RESP 16; TEMP 36.3; O2SAT 95
[2021-05-23] MEDS: Polyethylene Glycol 3350 17 GM PACKET PO (10:19)
[2021-05-23] MEDS: Enoxaparin 40 MG/0.4 ML Syringe SC (10:19)
[2021-05-23] MEDS: Menthol/Lanolin/Calamine/Znox 113 GM Tube 1 APPLIC TOPICAL (10:20)
[2021-05-23] MEDS: Senna/Docusate Sodium 1 Tablet 2 TABLET PO ×2 (10:20→22:07)
[2021-05-23] MEDS: busPIRone 5 MG Tablet 10 MG PO ×2 (10:20→21:29)
[2021-05-23] MEDS: oxyCODONE CR 15 MG Tablet PO ×2 (10:20→21:29)
[2021-05-23] MEDS: Nystatin Powder 15gm Bottle 1 APPLIC TOPICAL (10:21)
[2021-05-23] MEDS: Psyllium 1 PACKET PO (10:21)
[2021-05-23] MEDS: Bisacodyl 5 MG Tablet PO (10:53)
--- NOTE | 2021-05-23 12:40 | PCM.PN.HOSP ---
Subjective Subjective Patient first time complaining of less pain over ankle fracture site. Still has pain over left wrist fracture. Did not move bowel for 5 days but feels like she is going to have it. No fever. Dulcolax 5 mg p.o. in the morning given Objective Data Objective Data Vital Signs: Vital Signs Temp Pulse Resp BP Pulse Ox 97.4 F L 69 16 114/53 L 95 05/23/21 08:55 05/23/21 08:55 05/23/21 08:55 05/23/21 08:55 05/23/21 08:55 Oxygen Flow Rate (L/min) [4] 2 Oxygen Flow Rate (L/min) [3] 2 Oxygen Flow Rate (L/min) [2] 2 Oxygen Flow Rate (L/min) [1 ( 2 Initial Baseline)] Oxygen Flow Rate (L/min) 1 Oxygen Delivery Method [4] Nasal Cannula Oxygen Delivery Method [3] Nasal Cannula Oxygen Delivery Method [2] Nasal Cannula Oxygen Delivery Method [1 ( Nasal Cannula Initial Baseline)] Oxygen Delivery Method Room Air Weight: 209 lb 8 oz Body Mass Index (BMI) 32.8 Intake & Output: Intake and Output for Last 24 Hours 05/21/21 05/22/21 05/23/21 23:59 23:59 23:59 Intake Total 350 / 350 Output Total 1500 / 1500 1050 / 1050 600 / 600 Balance -1150 / -1150 -1050 / -1050 -600 / -600 Lab / Micro Data Result Diagrams: 05/22/21 05:45 05/22/21 05:45 Micro: Microbiology 05/14/21 17:17 Nasal Secretion SARS-CoV-2 Antigen (Rapid) - Final Physical Exam Narrative General: Alert, Oriented x3, Cooperative, in pain HEENT: Atraumatic, PERRLA, EOMI, Normocephalic Oral: No Gingival or Mucosal Lesions/ Ulcerations Neck: Supple, No JVD, Negative Carotid Bruits Lungs: Air entry equal in bilateral lung bases. No crepitation/rhonchi Cardiovascular: Regular rate, Regular Rhythm, Normal S1, Normal S2, No murmurs Abdomen: Bowel Sounds Present, Soft, Non Tender, Non-Distended : No renal angle tenderness. No suprapubic tenderness. Extremities: No edema Skin: No rashes, No breakdown Musculoskeletal: Left ankle joint immobilized with external fixator. Inflammatory swelling over ankle and foot has improved Venkat wrap bandage. Left wrist fracture, below elbow cast. Neurological: Cranial nerves II-XII grossly intact, DTR 2+/4 Psych/Mental Status: Mildly depressed. Anxiety Assessment & Plan Assessment/Plan (1) Closed left ankle fracture: QUALIFIERS: Encounter type: initial encounter Qualified Code(s): S82.892A - Other fracture of left lower leg, initial encounter for closed fracture (2) Left wrist fracture: QUALIFIERS: Encounter type: initial encounter Fracture type: closed Qualified Code(s): S62.102A - Fracture of unspecified carpal bone, left wrist, initial encounter for closed fracture PLAN: Patient is a 60-year-old lady who presented following a fall 2 weeks prior to admission. She was noted to have a left ankle fracture for which she underwent ORIF with an external fixator on 05/16/2021 1. Fall with left ankle fracture -Status post ORIF with an external fixator on 05/16/202105/19 pain control. Plan is SNF discharge. 05/20: Patient has continued pain over external fixator site, left ankle. I started on oxycodone 50 mg twice daily controlled-release on 05/19. On BuSpar. Requires [address] Mike signed off on 05/17. I asked charge nurse to notify him to evaluate the patient and address the pain at the ankle site/external fixator site. 05/21:Some residual subluxation of the Ankle joint after external fixator. OrthoSurgeon satisfied with the progress of healing.Plan to follow-up on 7 to 10 days In Ortho clinic. Patient also did not move all 4 for 5 days. On senna S, MiraLAX and psyllium. 05/22: Patient was convinced that she is on multiple pain medication, antianxiety medications. She moved the bowel. Waiting for precertification to go to care home. 05/23: Dulcolax 5 mg given. On multiple stool softener as patient is on opioids. Abdomen is soft. Pain is controlled. Patient having panic attack: Troponin normal. Twelve-lead EKG Done shows normal sinus rhythm with nonspecific ST-T changes suggestive of ischemia. No significant change from the previous EKG of 15 May 2021. 2. Left wrist fracture ?Status post reduction currently immobilized 3. Physical deconditioning due to fracture admission PT OT eval and health and social care teacher to assist with discharge planning -1Patient seen requiring 2 person assist when ambulating. Did discuss with the patient about the need to be discharged to a senior living facility when ready. She now agrees. Patient will need insurance precertification prior to disposition /2: Advised to cooperate with PT. 4. Diabetes mellitus type 2 ?Managed with diet 1/2 glucose is well controlled. Accu-Cheks discontinued 5. History of brain aneurysm ?Status post coiling. Remains stable 6. DVT prophylaxis ?Lovenox 7. Class I obesity with BMI of 32 ?Weight loss advised Charges/Coding Visit Charges Inpatient E&M: 90073 Subs Hosp L2
[2021-05-23 14:44] VITALS: BP 115/69; PULSE 62; RESP 18; TEMP 36.8; O2SAT 96
[2021-05-23] MEDS: Bisacodyl 10 MG Suppository RC (18:04)
[2021-05-23 21:24] VITALS: BP 111/56; PULSE 59; RESP 18; TEMP 36.3; O2SAT 99
[2021-05-23] MEDS: MELATONIN 10 MG TABLET PO (22:08)
[2021-05-24 03:52] VITALS: BP 110/59; PULSE 63; RESP 18; TEMP 36.1; O2SAT 97
[2021-05-24] MEDS: oxyCODONE 5 MG Tablet 10 MG PO (04:01)
[2021-05-24] MEDS: Acetaminophen 500 MG Tablet 1000 MG PO ×2 (04:01→14:51)
[2021-05-24 06:51] LABS: Absolute Lymphocyte Count 2.26 X10^3/uL (0.83-4.51); Absolute Neutrophil Count 6.4 X10^3/uL (2.0-7.7); Basophil# 0.03 X10^3/uL; Basophil% 0.3 % (0-1); Eosinophil# 0.09 X10^3/uL; Eosinophils% 0.9 % (0-5); Hematocrit 39.7 % (37-47); Hemoglobin 12.4 g/dL (12.0-15.0); Lymphocyte # 2.26 X10^3/ul (0.83-4.51); Lymphocyte % 23.4 % (19-41); Mean Corp Hgb Conc 31.2 g/dL (32-36); Mean Corpuscular Hgb 27.7 pg (27.0-32.0); Mean Corpuscular Volume 88.8 fL (81-99); Mean Platelet Vol. 8.8 fl (6.2-12.0); Monocyte# 0.88 X10^3/uL; Monocyte% 9.1 % (0-10); NRBC Flagged by Analyzer 0 % (0-5); Neutrophil # 6.36 X10^3/uL (2.7-7.7); Platelet Count 547 K/mm3 (150-450); RBC Distribution Width CV 13.1 % (11.6-14.6); RBC Distribution Width SD 42.4 fl (35.1-43.9); Red Blood Count 4.47 M/mm3 (4.2-5.4); White Blood Count 9.7 K/mm3 (4.4-11.0)
[2021-05-24 07:06] LABS: Anion Gap 6 (5-15); BUN 20 mg/dL (7-18); BUN/Creat Ratio 27.3 RATIO (10-20); Calcium,Total 9.1 mg/dL (8.5-10.1); Chloride 107 mmol/L (98-107); Creatinine, Serum 0.73 mg/dL (0.55-1.02); EST Glomerular Filtration Rate 86 mL/min (>60); Est Glom Filt Rate - Afr Amer 104 mL/min (>60); Glucose 102 mg/dL (74-106); Potassium 4.3 mmol/L (3.5-5.1); Sodium Level 141 mmol/L (136-145)
--- NOTE | 2021-05-24 08:38 | WOUNDNOTE ---
wound photo: left lower leg
--- NOTE | 2021-05-24 08:38 | WOUNDNOTE ---
wound photo: left foot
--- NOTE | 2021-05-24 08:39 | WOUNDNOTE ---
wound photo: left foot
[2021-05-24 09:00] VITALS: BP 115/63; PULSE 68; RESP 16; TEMP 36.9
[2021-05-24] MEDS: Senna/Docusate Sodium 1 Tablet 2 TABLET PO (09:27)
[2021-05-24] MEDS: oxyCODONE CR 15 MG Tablet PO (09:27)
[2021-05-24] MEDS: Polyethylene Glycol 3350 17 GM PACKET PO (09:28)
[2021-05-24] MEDS: Enoxaparin 40 MG/0.4 ML Syringe SC (09:28)
[2021-05-24] MEDS: busPIRone 5 MG Tablet 10 MG PO (09:28)
[2021-05-24] MEDS: Psyllium 1 PACKET PO (09:28)
[2021-05-24] MEDS: Nystatin Powder 15gm Bottle 1 APPLIC TOPICAL (09:43)
--- NOTE | 2021-05-24 09:52 | TREXTCAR_ITS ---
Diet 05/16/21 13:12 Diet: Consistent Carb - Calorie Controlled Food consistency:: Regular Liquid Consistency:: Regular/Thin Is pt able to select menu?: Yes How many daily calories?: 2000 calorie Wound(s) left foot: Wound Type: blister L INNER ANKLE: Wound Type: Abrasion L ELBOW: Wound Type: Skin Tear LT FOREARM: Wound Type: Surgical Incision LT LOWER LEG BELOW KNEE: Wound Type: Surgical Incision LLE: Wound Type: pin sites with external fixator Dressing Change: Dry Sterile Dressing LUE: Wound Type: Surgical Incision left dorsal foot: Wound Type: healed blistered area Dressing Change: Adaptic left anterior ankle: Wound Type: dry blistered area Dressing Change: Adaptic Therapies Weight Bearing: Non weight bearing Problem/Diagnosis (1) Closed left ankle fracture: Status: Acute (2) Left wrist fracture: Status: Acute Allergies/Procedures Done in Hospital Allergies ibuprofen Allergy (Verified 05/14/21 19:51) Rash Sulfa (Sulfonamide Antibiotics) Allergy (Verified 05/14/21 19:51) Unknown Type of Care/Length of Stay Estimated LOS: Convalescent Care Less Than 30 days Type of Care Needed: Skilled Rehab Potential: Good Prognosis: Good Additional Orders/Day of Discharge Day of Discharge: 05/24/21 Discharge Plan Admission Admit Date/Time: 05/14/21 17:07 Attending Provider: Fletcher Smith Primary Care Provider: Care Physician,No Primary Consulting Providers: Tae Mina Instructions Additional Instructions / Restrictions: Wound care/dressing instructions: Left wrist-maintain splint, keep it clean, dry, and intact until follow-up w/ Dr. Mike in 2 weeks Left ankle -Daily dry sterile dressing changes to dorsal foot and anterior ankle wounds. Apply Silvadene cream and Adaptic to anterior medial ankle wound. Apply Adaptic to anterior lateral and dorsal foot wounds. Secure with Gudelia wrap or Kerlix. Cleanse pin sites with hydrogen peroxide daily using a Q-tip. Okay to leave pin sites open to air. Discharge Orders/Prescriptions Prescriptions: New buspirone 5 mg Tablet 10 mg PO BID Qty: 0 RF: 0 polyethylene glycol 3350 17 gram Powder In Packet 17 g PO DAILY Qty: 0 RF: 0 sennosides-docusate sodium [Stool Softener-Stimulant Laxat] 8.6-50 mg Tablet 2 tab PO BID Qty: 0 RF: 0 acetaminophen 500 mg Tablet 1,000 mg PO Q8 Qty: 0 RF: 0 alprazolam 0.25 mg Tablet 0.25 mg PO TID Qty: 10 RF: 0 bisacodyl 10 mg Suppository 10 mg SC DAILY PRN PRN (Reason: CONSTIPATION) Qty: 0 RF: 0 nicotine 21 mg/24 hr Patch 24 Hour 21 mg transdermal DAILY Qty: 0 RF: 0 nystatin [Nyamyc] 100,000 unit/gram Powder 1 applic topical BID Qty: 0 RF: 0 oxycodone 5 mg Tablet 10 mg PO Q4H PRN PRN (Reason: Pain Score 4-10) 2 Days Qty: 10 RF: 0 enoxaparin 40 mg/0.4 mL Syringe 40 mg subcut DAILY Qty: 0 RF: 0 menthol-zinc oxide [Calmoseptine] 0.44-20.6 % Ointment 1 applic topical BID Qty: 0 RF: 0 Daily Fiber (psyllium-aspart) 3 gram Powder In Packet 1 packet PO BID Qty: 0 RF: 0 Referrals / Follow Up: Den Mike DO [STAFF PHYSICIAN] - 05/31/21 Care Physician,No Primary [Primary Care Provider] - Within 1 Week Disposition Disposition (needs filled in before D/C Order can be placed): [facility]
[2021-05-24] MEDS: ALPRAZolam 0.25 MG Tablet PO (11:37)
--- NOTE | 2021-05-24 12:05 | PCM.DC.SUM ---
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 Routine Comment: Consult: Orthopedics Routine Consulting Provider: Tae Mina Reason for Consult: ankle fracture EMERGENT Consult: No MD Notified: Yes Date Notified: 05/14/21 Time Notified: 17:12 Method of Notification: Verbal Reason For Visit: ANKLE AND WRIST FRACTURE Diagnosis Discharge Diagnosis (1) Closed left ankle fracture: Status: Acute Code(s): S82.892A - Other fracture of left lower leg, initial encounter for closed fracture Qualifiers: Encounter type: initial encounter Qualified Code(s): S82.892A - Other fracture of left lower leg, initial encounter for closed fracture (2) Left wrist fracture: Status: Acute Code(s): S62.102A - Fracture of unspecified carpal bone, left wrist, initial encounter for closed fracture Qualifiers: Encounter type: initial encounter Fracture type: closed Qualified Code(s): S62.102A - Fracture of unspecified carpal bone, left wrist, initial encounter for closed fracture Medications at Discharge Home Medications acetaminophen 1,000 mg PO Q8 #0 tab 05/24/21 alprazolam 0.25 mg PO TID PRN #10 tab 05/24/21 bisacodyl 10 mg [place] DAILY PRN PRN #0 ea 05/24/21 buspirone 10 mg PO BID #0 tab 05/24/21 enoxaparin 40 mg SUBCUT DAILY #0 ml 05/24/21 menthol-zinc oxide [Calmoseptine] 1 applic TOPICAL BID #0 g 05/24/21 nicotine 21 mg TRANSDERMAL DAILY #0 ea 05/24/21 nystatin [Nyamyc] 1 applic TOPICAL BID #0 g 05/24/21 oxycodone 10 mg PO Q4H PRN PRN 2 Days #10 tab 05/24/21 polyethylene glycol 3350 17 g PO DAILY #0 ea 05/24/21 psyllium husk (aspartame) [Daily Fiber (psyllium-aspart)] 1 packet PO BID #0 ea 05/24/21 sennosides-docusate sodium [Stool Softener-Stimulant Laxat] 2 tab PO BID #0 tab 05/24/21 Hospital Course Summary of Care Provided Hospital Course: Patient is a 60-year-old lady who presented following a fall 2 weeks prior to admission. She was noted to have a left ankle fracture for which she underwent ORIF with an external fixator on 05/16/2021 1. Fall with left ankle fracture -Status post ORIF with an external fixator on 05/16/2021. Pain controlled. Patient was seen by surgeon Dr. Mike. Patient on oxycodone 15 mg controlled-release twice daily along with intermittent oxycodone for pain control. As per Dr. Mike, patient has some residual subluxation of the Ankle joint after external fixator.Plan to follow-up on 7 to 10 days In Ortho clinic. Patient had bowel movement after 5 days on senna S, MiraLAX and psyllium and Dulcolax oral and suppository. Patient having panic attack, anxiety disorder PTSD and depression: Troponin normal. Twelve-lead EKG Done shows normal sinus rhythm with nonspecific ST-T changes suggestive of ischemia. No significant change from the previous EKG of 15 May 2021. On Xanax as needed and BuSpar 2. Left wrist fracture ?Status post reduction currently immobilized 3. Physical deconditioning due to fracture admission PT OT eval and social insurance administrator to assist with discharge planning -1Patient seen requiring 2 person assist when ambulating. Did discuss with the patient about the need to be discharged to a [facility] facility when ready. She now agrees. Patient will need insurance precertification prior to disposition 1/2: Advised to cooperate with PT. 4. Diabetes mellitus type 2 ?Managed with diet 1/2 glucose is well controlled. Accu-Cheks discontinued 5. History of brain aneurysm ?Status post coiling. Remains stable 6. DVT prophylaxis ?Lovenox 7. Class I obesity with BMI of 32 ?Weight loss advised Patient is being transferred to acute rehab. Discharge med list and prescriptions printed. Discharge medication reconciliation done. Discharge follow-up instructions completed. Discharge process discussed with the patient and all questions were answered to patient's satisfaction. Total time spent, exact 35 minutes on discharge meds reconciliation, examination, coordination of care with nurses and ancillary staff, review of imaging and blood test and discussion with the patient on follow-up instructions Physical Exam Narrative Seen and examined Patient moved bowel after 5 days last night. She is on high dose of opioid for pain control. She also has anxiety issues with history of depression and anxiety disorder and PTSD General: Alert, Oriented x3, Cooperative, in pain HEENT: Atraumatic, PERRLA, EOMI, Normocephalic Oral: No Gingival or Mucosal Lesions/ Ulcerations Neck: Supple, No JVD, Negative Carotid Bruits Lungs: Air entry equal in bilateral lung bases. No crepitation/rhonchi Cardiovascular: Regular rate, Regular Rhythm, Normal S1, Normal S2, No murmurs Abdomen: Bowel Sounds Present, Soft, Non Tender, Non-Distended : No renal angle tenderness. No suprapubic tenderness. Extremities: No edema Skin: No rashes, No breakdown Musculoskeletal: Left ankle joint immobilized with external fixator. The edema over ankle and foot has improved Venkat wrap bandage. Left wrist fracture, below elbow cast. Neurological: Cranial nerves II-XII grossly intact, DTR 2+/4 Psych/Mental Status: Mildly depressed. Anxiety Weight / BMI Weight Weight: 209 lb 8 oz Body Mass Index (BMI) 32.8 ABG / Lab / Microbiology Data Result Diagrams: 05/24/21 05:55 05/24/21 05:55 Laboratory: Laboratory Results - last 24 hr 05/24/21 05:55: WBC 9.7, RBC 4.47, Hgb 12.4, Hct 39.7, MCV 88.8, MCH 27.7, MCHC 31.2 L, RDW Std Deviation 42.4, RDW Coeff of Joleen 13.1, Plt Count 547 H, MPV 8.8, Immature Gran % (Auto) 0.300, Neut % (Auto) 66.0, Lymph % (Auto) 23.4, [place] % (Auto) 9.1, Eos % (Auto) 0.9, Baso % (Auto) 0.3, Absolute Neuts (auto) 6.4, Absolute Lymphs (auto) 2.26, Nucleated RBC % 0 05/24/21 05:55: Sodium 141, Potassium 4.3, Chloride 107, Carbon Dioxide 28.0, Anion Gap 6, BUN 20 H, Creatinine 0.73, Estim Creat Clear Calc 79.70, Est GFR (MDRD) Af Amer 104, Est GFR (MDRD) Non-Af 86, BUN/Creatinine Ratio 27.3 H, Glucose 102, Calcium 9.1 Microbiology: Microbiology 12/24/21 17:17 Nasal Secretion SARS-CoV-2 Antigen (Rapid) - Final Meaningful Use Info Meaningful Use Diagnoses (Choose all that apply): None applicable Discharge Plan Admission Admit Date/Time: 05/14/21 17:07 Primary Reason for Your Visit: Left ankle and left wrist fracture. Attending Provider: Fletcher Smith Primary Care Provider: Care Physician,No Primary Consulting Providers: Tae Mina Instructions Additional Instructions / Restrictions: Wound care/dressing instructions: Left wrist-maintain splint, keep it clean, dry, and intact until follow-up w/ Dr. Mike in 2 weeks Left ankle -Daily dry sterile dressing changes to dorsal foot and anterior ankle wounds. Apply Silvadene cream and Adaptic to anterior medial ankle wound. Apply Adaptic to anterior lateral and dorsal foot wounds. Secure with Gudelia wrap or Kerlix. Cleanse pin sites with hydrogen peroxide daily using a Q-tip. Okay to leave pin sites open to air. Discharge Orders/Prescriptions Prescriptions: New buspirone 5 mg Tablet 10 mg PO BID Qty: 0 RF: 0 polyethylene glycol 3350 17 gram Powder In Packet 17 g PO DAILY Qty: 0 RF: 0 sennosides-docusate sodium [Stool Softener-Stimulant Laxat] 8.6-50 mg Tablet 2 tab PO BID Qty: 0 RF: 0 acetaminophen 500 mg Tablet 1,000 mg PO Q8 Qty: 0 RF: 0 bisacodyl 10 mg Suppository 10 mg [place] DAILY PRN PRN (Reason: CONSTIPATION) Qty: 0 RF: 0 nicotine 21 mg/24 hr Patch 24 Hour 21 mg transdermal DAILY Qty: 0 RF: 0 nystatin [Nyamyc] 100,000 unit/gram Powder 1 applic topical BID Qty: 0 RF: 0 oxycodone 5 mg Tablet 10 mg PO Q4H PRN PRN (Reason: Pain Score 4-10) 2 Days Qty: 10 RF: 0 enoxaparin 40 mg/0.4 mL Syringe 40 mg subcut DAILY Qty: 0 RF: 0 menthol-zinc oxide [Calmoseptine] 0.44-20.6 % Ointment 1 applic topical BID Qty: 0 RF: 0 Daily Fiber (psyllium-aspart) 3 gram Powder In Packet 1 packet PO BID Qty: 0 RF: 0 alprazolam 0.25 mg tablet 0.25 mg PO TID PRN (Reason: anxiety) Qty: 10 RF: 0 Referrals / Follow Up: Den Mike DO [STAFF PHYSICIAN] - 05/31/21 Care Physician,No Primary [Primary Care Provider] - Within 1 Week Disposition Disposition (needs filled in before D/C Order can be placed): [facility] Charges/Coding Visit Charges Inpatient E&M: 56586 Disch Hosp
[2021-05-24 13:00] VITALS: BP 115/61; PULSE 70; RESP 16; TEMP 37.2
--- NOTE | 2021-05-24 13:00 | CASEMGMT ---
Social Work Note SW received update from Soraya with [facility] that pt was approved and can discharge to [facility] today. Physician updated. SW in to speak with pt. SW informed pt that approval was obtained for [facility] and pt will discharge to [facility] today. Pt states understanding. Plan: [facility] today [facility] [employer], [employer]
[2021-05-24] MEDS: Bisacodyl 5 MG Tablet 10 MG PO (15:12)
== END 2021-05-24 15:54 | disposition skilled nursing facility (03) | DRG 313 ==
LOC: ED 17:58 → MS3 18:31
PROVIDERS: Anesthesiology; Hospitalist; Internal Medicine; Physician Assistant; Student in an Organized Health Care Education/Training Program; Emergency Provider Emergency Medicine; Visit Provider Internal Medicine
PROC: 0QSH35Z Reposition Left Tibia with External Fixation Device, Percutaneous Approach (ICD-10-PCS; principal; 2021-05-16 07:00)
PROC: 0QSH35Z Reposition Left Tibia with External Fixation Device, Percutaneous Approach (ICD-10-PCS; 2021-05-16 07:00)
DX: S82.852A Displaced trimalleolar fracture of left lower leg, initial encounter for closed fracture (principal); L89.899 Pressure ulcer of other site, unspecified stage; E11.9 Type 2 diabetes mellitus without complications; J44.9 Chronic obstructive pulmonary disease, unspecified; S91.002A Unspecified open wound, left ankle, initial encounter; S62.002A Unspecified fracture of navicular [scaphoid] bone of left wrist, initial encounter for closed fracture; S90.522A Blister (nonthermal), left ankle, initial encounter; S92.344A Nondisplaced fracture of fourth metatarsal bone, right foot, initial encounter for closed fracture; S52.602A Unspecified fracture of lower end of left ulna, initial encounter for closed fracture; S52.572A Other intraarticular fracture of lower end of left radius, initial encounter for closed fracture; S90.822A Blister (nonthermal), left foot, initial encounter; S82.842A Displaced bimalleolar fracture of left lower leg, initial encounter for closed fracture; S93.02XA Subluxation of left ankle joint, initial encounter; W10.9XXA Fall (on) (from) unspecified stairs and steps, initial encounter; E55.9 Vitamin D deficiency, unspecified; G43.909 Migraine, unspecified, not intractable, without status migrainosus; I10 Essential (primary) hypertension; I25.2 Old myocardial infarction; M19.90 Unspecified osteoarthritis, unspecified site; F17.210 Nicotine dependence, cigarettes, uncomplicated; Y93.9 Activity, unspecified; Y92.009 Unspecified place in unspecified non-institutional (private) residence as the place of occurrence of the external cause; E66.9 Obesity, unspecified; Z68.32 Body mass index [BMI] 32.0-32.9, adult; F32.A Depression, unspecified; F41.0 Panic disorder [episodic paroxysmal anxiety]; F43.10 Post-traumatic stress disorder, unspecified; G89.29 Other chronic pain; Z79.84 Long term (current) use of oral hypoglycemic drugs; Z79.899 Other long term (current) drug therapy
CPT/HCPCS: 36415; 71045; 72170; 73090; 73100; 73110; 73130; 73590; 73600; 73610; 73630; 73701; 76000; 80048; 81001; 82306; 82962; 83036; 83735; 84484; 85025; 86850; 86900; 86901; 87426; 93005; 97110; 97162; 97167; 97530; 97535; 99251; 99285; 99406; C1713; J7030; Q9967; A4216; G0463; J2405

== ENCOUNTER 2021-05-24 16:03 | Inpatient (IN) | payer MEDICAID, SELFPAY ==
[2021-05-24 16:19] VITALS: BP 146/62; PULSE 66; RESP 18; TEMP 36.6; O2SAT 96; BMI 32.0
[2021-05-24] MEDS: oxyCODONE 5 MG Tablet PO ×2 (17:37→23:40)
[2021-05-24 19:06] VITALS: BP 147/68; PULSE 60; RESP 16; TEMP 36.6; O2SAT 96
[2021-05-24] MEDS: Nystatin Powder 15gm Bottle 1 APPLIC TOPICAL (21:09)
[2021-05-24] MEDS: Senna/Docusate Sodium 1 Tablet 2 TABLET PO (21:09)
[2021-05-24] MEDS: Acetaminophen 500 MG Tablet 1000 MG PO (21:09)
[2021-05-24] MEDS: Menthol/Lanolin/Calamine/Znox 113 GM Tube 1 APPLIC TOPICAL (21:10)
[2021-05-24] MEDS: busPIRone 5 MG Tablet 10 MG PO (21:10)
[2021-05-24] MEDS: Psyllium 1 PACKET PO (21:10)
[2021-05-24 21:21] VITALS: PULSE 66; RESP 16; O2SAT 96
[2021-05-24 23:41] LABS: Bedside Glucose 105 mg/dL (70-110)
--- NOTE | 2021-05-24 23:52 | NURSING ---
Pt moderately anxious this hs when staff is in room. Pt impatient with nursing care and staff clustered care as much as possible to minimize anxiety for pt. Pt refused to fill in menu choices even with staff assist, [facility] selected. Staff attempted to reassure pt and provide as much consideration to pt as possible. Pt expressed strong desire to be left alone. Pt also stated that she would be talking to the Dr tomorrow because her Xanax was d/c'd.
[2021-05-25] MEDS: oxyCODONE 5 MG Tablet PO ×5 (03:52→21:42)
[2021-05-25] MEDS: Acetaminophen 500 MG Tablet 1000 MG PO ×3 (06:16→21:41)
[2021-05-25] MEDS: Enoxaparin 40 MG/0.4 ML Syringe SC (06:16)
[2021-05-25 06:31] LABS: Bedside Glucose 114 mg/dL (70-110)
[2021-05-25 07:00] VITALS: O2SAT 96
[2021-05-25 07:27] VITALS: BP 119/53; PULSE 64; RESP 16; TEMP 36.6; O2SAT 94
[2021-05-25] MEDS: busPIRone 5 MG Tablet 10 MG PO ×2 (07:56→21:41)
[2021-05-25] MEDS: Menthol/Lanolin/Calamine/Znox 113 GM Tube 1 APPLIC TOPICAL ×2 (07:57→21:43)
[2021-05-25] MEDS: Nystatin Powder 15gm Bottle 1 APPLIC TOPICAL ×2 (07:58→21:43)
[2021-05-25] MEDS: Senna/Docusate Sodium 1 Tablet 2 TABLET PO ×2 (07:58→21:41)
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
--- NOTE | 2021-05-25 13:17 | REHABEVAL_ITS ---
Admission Information Primary Diagnosis:: Physical debility due to left trimalleolar ankle fracture and left radius and ulnar fracture Status Changes from Prescreening?: No changes Identified Actual Problem List:: Mobility Impaired, Self Care Deficit, Know.Dfct/Disease Process, Fluid Change-Dehydration and Alteration-Leisure Activ. Potential Problem List:: DVT, Bleeding, Infection, UTI, Aspiration, Falls, Skin Integrity and Depression Risk of Complications DVT: LMWH and INGA Hose Bleeding: Monitor Lab Values, Nursing to Teach Precautions for anti-coagulation therapy., Wound, if applicable, to be assessed every shift. and Stroke patients assessed for lethargy or change in status. Infection: Clinical Staff to Monitor for S/S of infection: and S/S of infection include fever, redness, warmth, etc. Urinary Tract Infection: Monitor for frequency, burning, discomfort, or incontinence. and Nursing will obtain urine sample for urinalysis and C&S when ordered. Aspiration: Clinical staff will monitor for coughing, drooling, congestion., Speech will evaluate swallowing and dsyphasia. and Nursing will monitor patient swallowing during meals. Falls: Patient will be evaluated for Fall Precautions and Patient will be placed on Fall Precautions as indicated per protocol. Skin Breakdown: Nursing will assess skin daily using assessment tool. and Nursing will place on Skin Breakdown Precautions as indicated. Pain: Clinical staff will assess patient's pain level per protocol., Medications will be given, if needed, and the pain level reassessed. and Other methods: Massage, distraction, decrease stimulus, etc. used PRN. Plan of Care Patient requires physician specializing in physical medicine and rehab oversight to provide close medical supervision of rehab issues including: Pain Management, Sleep Problems, Bowel and Bladder, Medical and co-morbidity Management, DVT prophylaxis, Rehabilitation Leadership and Coordination of treatment team Patient needs Physical Therapy: For a minimum of 1 hour and At least 5 out of 7 days Patient needs Physical Therapy to improve:: Mobility, Strengthening, Transfers, Stretching, ROM, Endurance, Stairs, Gait and Balance Patient needs Occupational Therapy: For a minimum of 1 hour and At least 5 out of 7 days Patient needs Occupational Therapy to improve ADL's incl.: Eating, Grooming, Bathing, Dressing, Toileting, Toilet transfers, Community Reintegration, Higher functioning activities, Household tasks, Adaptive Equipment, Splinting and Other activities as determined Patient requires speech therapy: For a minimum of 1 hour and At least 5 out of 7 days Patient requires speech therapy for: Swallowing, Cognition, Language Skills and Compensatory Strategies Patient requires 24/7 Rehabilitation Nursing for: Pain Issues, Identifying and preventing risk factors, Monitoring and reporting current medical conditions, Assisting with ambulation, transfer, and all ADL's, Teaching patients about disease process and medications, Family teaching, Providing safe environment, Bowel and Bladder Issues, Skin integrity and Medication Management Patient needs Software Design Manager/ Case Management for: Discharge Planning, Arranging Home Equipment or Services and Family Interventions Patient needs Dietary and Nutrition Services for: Adequate Nutrition, Nutritional Supplements and Nutritional Education Goals Patient will remain: free from falls and or injury at time of discharge. Patient will perform bed mobility at: MOD I level of assist. Patient will complete transfers from bed to chair at: MOD I level of assist. Patient will ambulate: 100 feet and with LRD Patient will propel wheelchair: 50 feet, with standby assist and - Patient will complete upper body dressing at: - (Supervision level) Patient will complete lower body dressing at: - (Supervision level) Patient will complete toileting at: Standby Assist. Patient will perform bathing at: Standby Assist. Patient will complete grooming at: - (Supervision level) Patient will achieve: - (no stairs until she is allowed to bear wt on the Left leg) Patient will have pain level of: of 3 or less Patient's skin will: - (wounds on the Left foot and ankle will be treated and if not healed prior to DC will have her F/U in the [facility]) Patient will receive: adequate nutrition. Discharge Planning Pt Prognosis for Sig. Practical Improv. w/in Reasonable Time: Good Estimated Length of stay (days): 14 Anticipated D/C Destination: Home with Home Health Was Preadmission Assessment Accurate?: Yes
[2021-05-25 19:35] VITALS: BP 113/60; PULSE 66; RESP 18; TEMP 36.9; O2SAT 95
[2021-05-25] MEDS: Psyllium 1 PACKET PO (21:41)
[2021-05-25 22:00] VITALS: O2SAT 96
[2021-05-26] MEDS: ALPRAZolam 0.25 MG Tablet PO ×2 (00:40→20:14)
[2021-05-26] MEDS: Enoxaparin 40 MG/0.4 ML Syringe SC (05:40)
[2021-05-26] MEDS: Acetaminophen 500 MG Tablet 1000 MG PO ×3 (05:41→22:53)
[2021-05-26 06:39] VITALS: O2SAT 94
[2021-05-26 07:47] VITALS: BP 126/67; PULSE 69; RESP 18; TEMP 36.5; O2SAT 98
[2021-05-26] MEDS: busPIRone 5 MG Tablet 10 MG PO ×2 (08:22→22:54)
[2021-05-26] MEDS: Cholecalciferol (VIT D3) 25 MCG TABLET (1,000 UNITS) PO (08:23)
[2021-05-26] MEDS: Senna/Docusate Sodium 1 Tablet 2 TABLET PO ×2 (08:23→22:54)
[2021-05-26] MEDS: oxyCODONE 5 MG Tablet PO ×3 (08:24→17:22)
[2021-05-26] MEDS: Menthol/Lanolin/Calamine/Znox 113 GM Tube 1 APPLIC TOPICAL ×2 (10:50→22:54)
[2021-05-26] MEDS: Nystatin Powder 15gm Bottle 1 APPLIC TOPICAL ×2 (10:51→20:17)
[2021-05-26 20:06] VITALS: BP 111/63; PULSE 79; RESP 16; TEMP 36.1; O2SAT 98
[2021-05-26] MEDS: Psyllium 1 PACKET PO (22:55)
[2021-05-27] MEDS: oxyCODONE 5 MG Tablet PO ×5 (04:37→23:22)
[2021-05-27] MEDS: ALPRAZolam 0.25 MG Tablet PO (05:09)
[2021-05-27] MEDS: Acetaminophen 500 MG Tablet 1000 MG PO ×3 (05:43→21:52)
[2021-05-27] MEDS: Enoxaparin 40 MG/0.4 ML Syringe SC (05:44)
[2021-05-27 06:50] VITALS: O2SAT 93
[2021-05-27] MEDS: Silver Sulfadiazine 1% Crm 50 gm Bottle 1 APPLIC TOPICAL (07:04)
[2021-05-27 07:21] VITALS: BP 116/56; PULSE 63; RESP 16; TEMP 36.6; O2SAT 93
[2021-05-27] MEDS: Senna/Docusate Sodium 1 Tablet 2 TABLET PO ×2 (08:05→21:53)
[2021-05-27] MEDS: busPIRone 5 MG Tablet 10 MG PO (08:05)
[2021-05-27] MEDS: Cholecalciferol (VIT D3) 25 MCG TABLET (1,000 UNITS) PO (08:05)
[2021-05-27] MEDS: Menthol/Lanolin/Calamine/Znox 113 GM Tube 1 APPLIC TOPICAL ×2 (08:24→21:54)
[2021-05-27] MEDS: Nystatin Powder 15gm Bottle 1 APPLIC TOPICAL ×2 (08:24→21:54)
--- NOTE | 2021-05-27 10:42 | CASEMGMT ---
Social Work Met with patient for psychosocial assessment. Answered questions for pt. Pt very anxious and feeling overwhelmed will of her recent events. Explained [employer] insurance with NRD 05/31 and continued stay is not guaranteed with each review. Explained SW will assist with DC planning and support throughout visit. Pt disclosed she has anxiety and PTSD, but denied wanting to talk further about it. Offered continue support and listening during stay. Pt appreciative. Discussed DC plans. Pt's goal is to return home with . She does have a ramp to enter and stair lift to second floor bed/bath, but states she will have a first floor set up at DC. There is a walk-in shower on the main floor, and would like a hospital bed. Pt explained her is 20 years older than her, is disabled and has a bad back; he cannot assist her at home. Pt referenced private duty list she was provided prior and states funds will not be an issue. Suggested to start contacting agencies as staffing and availability are an issue currently. SW can order any DME that she qualifies for through insurance and skilled HHC. Pt requesting hospital bed and w/c. Pt stated will be at Team meeting and SW to reexplain role and assistance. Pt appreciative. Zunilda Ingram, CLINICAL MANAGER HOME CARE TOWER SUPERVISOR
--- NOTE | 2021-05-27 10:43 | PCM.PN.BLA ---
Progress Note Mariah was seen on team rounds today. Her Jamar was present for rounds. All questions were answered to their satisfaction. the SW gave Mariah a list of agencies that provide home care to assist with bathing, light housework, shopping. She is going to start calling around. Mariah tells me that her can take care of himself but, he will not be able to assist her. She did well with the slide board and transfers today. she admits to being afraid to try things for fear she will fall. She was noticeably more anxious. She is under the impression that the external fixator will be removed on Monday when she sees Dr. Mike BUT, I highly doubt this. The bone must heal prior to removing the fixator so the ankle will be stable. Very adamant about waning to go home. The SW discussed with her finding a psychiatrist to prescribe meds going forward for anxiety and PTSD and she is on board with this plan. Afebrile VSS Maintaining appropriate oxygen saturation on RA Oral intake is poor if the I&O's are accurate Discussed with nursing - no problems that need addressed Reviewed the PT/OT/ST notes. She is fairly negative while doing therapy. She often tells the PT that she will not be able to do something that is asked of her but, she can be cajoled into trying and is doing well. Medication list reviewed. She has taken 3 doses of Xanax in the past 2 days. She took 5 doses of Oxycodone on the and took only 3 doses yesterday. Has not been seen by yet. Denies calf pain, chest pain, shortness of breath, sore throat, cough. She slept well last night. No dysuria. Physical Exam Const alert and oriented x3 Constitutional Narrative: appears anxious and appears as though she is gong to break into tears. Worried about her and wanting to get home. Resp clear to auscultation bilaterally Effort and Inspection: able to speak in complete sentences Cardio regular rate, regular rhythm, no murmurs and no gallops Cardio Narrative: No ectopy GI normal to inspection, nondistended, normoactive bowel sounds and soft to palpation Extremity Extremity Narrative: Less edema of the left foot today. The wound on the dorsum of the foot is completely healed. There are two wounds on the ankle flexure...one anterior and one more medial. these are healing and there is no purulent DC and no claudia-wound erythema. There is some maceration between the toes and a foul smelling odor when I separate the toes which is most likely due to mild tinea pedis. There is no purulent DC around the pins and no erythema. Intact sensation in the foot and the foot is warm. Assessment & Plan Assessment/Plan (1) Physical debility: (2) Status post open reduction and internal fixation (ORIF) of fracture: (3) Status post open reduction and internal fixation (ORIF) of fracture: (4) Pressure ulcer of ankle: (5) Chronic post-traumatic stress disorder: (6) Generalized anxiety disorder with panic attacks: (7) Tinea pedis of left foot: PLAN: 1. Continue with Silvadene to the wounds at the ankle flexure but DC the Silvadene to the dorsum of the foot. 2. Lotrimin between the toes on the left foot BID 3. will see her tomorrow 4. DC the Buspar and start Klonopin 1 mg BID. Continue the Xanax PRN for panic attacks. Start Effexor XR 75 mg once a day in the AM for PTSD and pain control. 5. will stay after rounds to see how she is doing transfers.......he states he will not be able to assist her but, by the time she is discharged we are hoping she will only need SBA. She will call the home care agencies to see if she can find a service to help her for the hours that she will need. Will get home Health care at [place] but, explained to her lan they will not be providing 24/7 care if that is what she is looking for. 6. Tried to reassure that she is safe and the therapists would not ask her to do something that would lead to a fall. Encouraged her to trust that they are good at their jobs.
--- NOTE | 2021-05-27 13:49 | CASEMGMT ---
Social Work IDT met with patient and for Team meeting. Discussed pt's progress in PT/OT and nursing. Pt using slideboard transfer and doing well. The goal is to work on tx to BSC to be more independent with toileting. Explained insurance coverage and NRD 05/31. Pt has ortho f/u appt 05/31 and anxious to see what the Dr has to report. IDT explained pt will be in fixator for many weeks to heal, and to discuss with the plan at home. reiterated he cannot physically assist pt, but difficulty understanding how pt is doing in therapy. Offered for to stay for therapy session to watch how pt is doing to have better comprehension on her abilities and barriers to DC at home. agreed. SW to order hospital bed, slideboard, drop arm BSC and drop arm w/c with elevating leg rests at DC, along with skilled HHC. ordered Behavioral Health consult. Pt expressed optimism to working in therapy to better cope with PTSD and anxiety. Jakub from [facility] Behavioral Health will visit pt in the AM 1/7. started pt on medications to assist. SW to follow up with pt on DC plans the following day. Zunilda Ingram, PURIFYING PLANT OPERATOR ASSOCIATE SCHOOL PSYCHOLOGIST
[2021-05-27 19:47] VITALS: BP 115/58; PULSE 72; RESP 16; TEMP 36.9; O2SAT 96
[2021-05-27] MEDS: clonazePAM 1 MG Tablet PO (21:53)
[2021-05-28] MEDS: oxyCODONE 5 MG Tablet PO ×4 (06:37→20:39)
[2021-05-28] MEDS: Acetaminophen 500 MG Tablet 1000 MG PO ×3 (06:39→20:55)
[2021-05-28] MEDS: Enoxaparin 40 MG/0.4 ML Syringe SC (06:39)
[2021-05-28 07:24] VITALS: BP 113/69; PULSE 75; RESP 18; TEMP 36.7; O2SAT 96
[2021-05-28] MEDS: Senna/Docusate Sodium 1 Tablet 2 TABLET PO ×2 (07:44→20:51)
[2021-05-28] MEDS: Cholecalciferol (VIT D3) 25 MCG TABLET (1,000 UNITS) PO (07:44)
[2021-05-28] MEDS: Venlafaxine XR 75 MG Capsule PO (07:44)
[2021-05-28] MEDS: Nystatin Powder 15gm Bottle 1 APPLIC TOPICAL ×2 (07:48→20:49)
[2021-05-28] MEDS: Menthol/Lanolin/Calamine/Znox 113 GM Tube 1 APPLIC TOPICAL ×2 (07:49→20:50)
[2021-05-28] MEDS: clonazePAM 1 MG Tablet PO ×2 (10:12→21:13)
--- NOTE | 2021-05-28 10:26 | NURSING ---
spoke with Dr Mike office regarding pt rescheduling f/u appt on 05/31. advise them that pt will have to pay Out of pocket for transpiration and that is not able to transport pt. Offer her physician to come to rehab to see the pt. Office will return call
--- NOTE | 2021-05-28 12:07 | BH.NOTE ---
BH: Inpatient Note - Notes Behavioral Health Inpatient Note: 05/28/21 12:07 This therapist saw pt for a behavioral health consult based on a referral from Dr. Enriquez. Pt referred due to severe anxiety and PTSD symptoms. Pt reports long-standing history of mental health issues and trauma and that her symptoms have been worsening over the past 3-5 years. Numerous stressors including loss of her ex- due to suicide 5 years ago, health issues (recent fall and hospital admission), and losing her PCP who was prescribing pt's anxiety medications. Pt endorses mood instability, crying spells, ruminations, hx of panic attacks, and reports constant memories that cause distress. Pt denies any suicidal ideations, plan, or intent to this therapist. Denies any suicide attempts. Pt reports previous diagnoses of PTSD and Borderline Personality Disorder. Pt reports she very much connects to Borderline Personality Disorder. Pt was receptive to meeting with therapist and learning about behavioral health at the hospital. Pt receptive to getting mental health counseling and psychiatry, but pt expressed I can't do group therapy. Pt declined services at [facility] and pt was provided resources for outpatient mental health agencies that offer counseling and psychiatry. These resources were [facility] and [facility] in [place]. Discussed these options and pt chose to call [facility] to schedule an appointment for medication management.
[2021-05-28 13:24] VITALS: O2SAT 96
--- NOTE | 2021-05-28 15:49 | CASEMGMT ---
Social Work Followed up pt on DC planning. Pt has not made any further decisions on DC plans. Encouraged pt to contact several nonskilled [facility] agencies today between therapy sessions as continued stay is not guaranteed from insurance update 05/31. Pt could benefit from continued stay. SW will continue to follow for DC planning and support. Zunilda Ingram, UNATTENDED GROUND SENSOR SPECIALIST MOVIE STUNT PERFORMER
[2021-05-28 19:21] VITALS: BP 116/63; PULSE 74; RESP 16; TEMP 36.6; O2SAT 95
[2021-05-28] MEDS: Psyllium 1 PACKET PO (20:51)
[2021-05-28] MEDS: Silver Sulfadiazine 1% Crm 50 gm Bottle 1 APPLIC TOPICAL (21:19)
[2021-05-28 22:00] VITALS: PULSE 77; RESP 16; O2SAT 95
[2021-05-29] MEDS: oxyCODONE 5 MG Tablet PO ×6 (02:30→22:35)
[2021-05-29] MEDS: Enoxaparin 40 MG/0.4 ML Syringe SC (06:31)
[2021-05-29] MEDS: Acetaminophen 500 MG Tablet 1000 MG PO ×3 (06:33→20:44)
[2021-05-29 08:30] VITALS: BP 120/60; PULSE 70; RESP 16; TEMP 36.7; O2SAT 96
[2021-05-29] MEDS: Venlafaxine XR 75 MG Capsule PO (08:58)
[2021-05-29] MEDS: Senna/Docusate Sodium 1 Tablet 2 TABLET PO ×2 (08:58→20:45)
[2021-05-29] MEDS: Cholecalciferol (VIT D3) 25 MCG TABLET (1,000 UNITS) PO (08:59)
[2021-05-29] MEDS: clonazePAM 1 MG Tablet PO ×2 (09:05→20:44)
[2021-05-29] MEDS: Polyethylene Glycol 3350 17 GM PACKET PO (10:36)
[2021-05-29 20:20] VITALS: BP 111/62; PULSE 69; RESP 17; TEMP 36.6; O2SAT 96
[2021-05-29] MEDS: Nystatin Powder 15gm Bottle 1 APPLIC TOPICAL (20:46)
--- NOTE | 2021-05-30 00:01 | NURSING ---
Reviewed and agree with C.O.D. BILLER assessment.
[2021-05-30] MEDS: oxyCODONE 5 MG Tablet PO ×5 (03:06→22:19)
[2021-05-30] MEDS: Enoxaparin 40 MG/0.4 ML Syringe SC (05:37)
[2021-05-30] MEDS: Acetaminophen 500 MG Tablet 1000 MG PO ×3 (05:37→22:18)
[2021-05-30] MEDS: Silver Sulfadiazine 1% Crm 50 gm Bottle 1 APPLIC TOPICAL (05:38)
[2021-05-30 08:00] VITALS: BP 106/44; PULSE 60; RESP 18; TEMP 36.1; O2SAT 95
[2021-05-30] MEDS: Senna/Docusate Sodium 1 Tablet 2 TABLET PO ×2 (09:54→22:19)
[2021-05-30] MEDS: Venlafaxine XR 75 MG Capsule PO (09:54)
[2021-05-30] MEDS: clonazePAM 1 MG Tablet PO ×2 (09:54→22:56)
[2021-05-30] MEDS: Cholecalciferol (VIT D3) 25 MCG TABLET (1,000 UNITS) PO (09:54)
[2021-05-30] MEDS: Nystatin Powder 15gm Bottle 1 APPLIC TOPICAL ×2 (09:56→22:20)
[2021-05-30 19:30] VITALS: BP 106/71; PULSE 65; RESP 18; TEMP 36.8; O2SAT 95
[2021-05-30] MEDS: Menthol/Lanolin/Calamine/Znox 113 GM Tube 1 APPLIC TOPICAL (22:20)
[2021-05-31] MEDS: oxyCODONE 5 MG Tablet PO ×3 (04:45→16:44)
[2021-05-31] MEDS: Acetaminophen 500 MG Tablet 1000 MG PO ×3 (05:00→21:48)
[2021-05-31] MEDS: Enoxaparin 40 MG/0.4 ML Syringe SC (05:00)
[2021-05-31] MEDS: Silver Sulfadiazine 1% Crm 50 gm Bottle 1 APPLIC TOPICAL (05:01)
[2021-05-31 07:40] VITALS: BP 99/73; PULSE 76; RESP 18; TEMP 36.6; O2SAT 98
[2021-05-31] MEDS: Venlafaxine XR 75 MG Capsule PO (10:33)
[2021-05-31] MEDS: clonazePAM 1 MG Tablet PO ×2 (10:34→21:49)
[2021-05-31] MEDS: Nystatin Powder 15gm Bottle 1 APPLIC TOPICAL ×2 (10:34→21:49)
[2021-05-31] MEDS: Cholecalciferol (VIT D3) 25 MCG TABLET (1,000 UNITS) PO (10:35)
[2021-05-31] MEDS: Senna/Docusate Sodium 1 Tablet 2 TABLET PO ×2 (10:36→21:48)
--- NOTE | 2021-05-31 10:53 | PCM.PN.BLA ---
Progress Note Afebrile VSS - BP is a little on the low side since the anxiety has improved. Maintaining appropriate oxygen saturation on RA Oral intake is good Discussed with nursing - no problems that need addressed Reviewed the PT/OT notes Medication list reviewed. She is taking the Oxycodone 10 mg 5-6 times a day. She has not had to take any Xanax since the Klonopin was started. She will not be able to follow up with Dr. Mike in the office today because she would need to be transported in an ambulance and she would have to pay for the ambulance. Will send a communication to Dr. Mike about what XRAYS he would like and ask if he will see her in rehab sometime when he is in the hospital. Mariah is c/o increased pain in the Left forearm and the LLE distal to the need. When she elevates the hand above the level of the heart the pain in the arm gets better. Also not elevating the Left leg as much as she should. Therapy tells me that she is always sitting in a WC with the Left leg dependent. The toes and the fingers on the left have a bluish tint due to venous HTN. She tells me that her anxiety is much better. She is sleeping well. We discussed adding a long acting acting narcotic but, I told her she would need to follow up with pain management to prescribe/wean the external hardware has been removed and the fractures are healed. She is OK with this. Consult was called to Dr. Madrigal's office. Will start Oxycontin 10 mg Q12H for now but, defer to Dr. Madrigal if he wants to change the med or the dose. She denies calf pain, CP, SOB, cough, loss of taste or smell, sore throat, N/V. Physical Exam Const alert and oriented x3 Constitutional Narrative: Does not appear to be in significant distress. No longer anxious/fidgeting, restless. General Appearance: cooperative HEENT hearing grossly normal bilaterally Mouth: other Other Details: MM are moist Eyes conjunctivae normal and no scleral icterus Resp clear to auscultation bilaterally Effort and Inspection: able to speak in complete sentences Cardio regular rate, regular rhythm and no murmurs GI normal to inspection, nondistended, normoactive bowel sounds, soft to palpation and non-tender Extremity no calf tenderness Extremity Narrative: The fingers on the left hand are mildly swollen when compared to the right. They also have a slight bluish tint. she has intact sensation and the fingers are not cold. The toes of the left foot are more swollen today and they are purple when the leg is dependent. The ankle has no significant swelling. The toes are warm and she has intact sensation. Will examine the wounds with nursing when the dressing is changed this afternoon. Skin Rashes: no rashes Assessment & Plan Assessment/Plan (1) Physical debility: PLAN: Continue therapy. I am skeptical about her ability to manage at home while the external fixator is still in place. Her is 80 YO and in poor health and can not assist her. She is going to try and arrange for assistance at home and was given a list by the . Would like to have this nailed down prior to expected DC. (2) Status post open reduction and internal fixation (ORIF) of fracture: PLAN: Will not be able to go to the appt with Dr. Mike today at [facility] because her is not able to assist in and out of the car and she would have to go by ambulance which she would have to pay for. Will ask Dr. Mike if there are any XRAYS he would like me to order. (3) Status post open reduction and internal fixation (ORIF) of fracture: (4) Thrombocytosis: PLAN: PLT's are decreasing (5) Pressure ulcer of ankle: (6) Generalized anxiety disorder with panic attacks: PLAN: Good improvement with Q 12 H Klonopin and she has not needed and PRN Xanax for breakthrough. Therapy has noticed improvement in her outlook and demeanor. Still having some fear/anxiety about letting the NA's assist her in transfers and demands the nurse or therapist do it. (7) Borderline personality disorder: PLAN: I reviewed the note left by and appreciate their assistance. She is going to follow up in [place]. I reinforced that I would only be able to write for 1 month of Klonopin and then she will have to rely of psychiatry or her PCP. (8) Chronic back pain: (9) Pain in left lower leg: PLAN: Will add Oxycontin 10 mg BID to her drug regimen. I told her she will need to follow up with pain management going forward to get her weaned down on the pain medication after the bones heal and the external fixator are removed. (10) Pain of left arm: PLAN: Place to arm in a sling to elevate. Visit Charges Inpatient E&M: 50125 Subs Hosp L2
--- NOTE | 2021-05-31 13:47 | CASEMGMT ---
Addendum entered by Zunilda Ingram 05/31/21 14:01: Contacted [facility] to see on DME availability. The only item in stock is the bedside table and that would potentially be an out of pocket expense. Pt still requesting item. [facility] advised to send script for them to order DME in hopes to have it in stock by time of DC for pt. Will send scripts once signed. Original Note: Social Work Met with pt and in room. Answered questions on DC plans, canceled Drs appt today, and insurance coverage for needed DME. SW assured this worker will coordinate all DC services once DC date is issued. Pt requesting and SW to order through [facility]: hospital bed, bedside table, drop arm w/c with elevating leg rests, drop arm BSC. Pt will need w/c van transport home - will contact [facility]. Pt has ramp to enter home. SW to order HHC PT/OT/SN/KLINE/SW. Will notify pt and of outcome of insurance update today. IDT recommending continued stay for ongoing therapy and management. ROSALIND requesting 48 hours to coordinate all DC needs. Will continue to follow. Zunilda Ingram, SILVIA RN NEUROLOGY
[2021-05-31 15:21] LABS: Hemoglobin 13.2 g/dL (12.0-15.0); Mean Corp Hgb Conc 30.7 g/dL (32-36); Mean Corpuscular Hgb 27.5 pg (27.0-32.0); Mean Corpuscular Volume 89.6 fL (81-99); Mean Platelet Vol. 9.2 fl (6.2-12.0); Platelet Count 500 K/mm3 (150-450); RBC Distribution Width SD 42.8 fl (35.1-43.9); White Blood Count 7.2 K/mm3 (4.4-11.0)
[2021-05-31 16:13] LABS: Anion Gap 9 (5-15); BUN 22 mg/dL (7-18); BUN/Creat Ratio 25.6 RATIO (10-20); Calcium,Total 9.4 mg/dL (8.5-10.1); Chloride 105 mmol/L (98-107); Creatinine, Serum 0.86 mg/dL (0.55-1.02); EST Glomerular Filtration Rate 72 mL/min (>60); Est Glom Filt Rate - Afr Amer 87 mL/min (>60); Glucose 118 mg/dL (74-106); Potassium 4.1 mmol/L (3.5-5.1); Sodium Level 142 mmol/L (136-145)
[2021-05-31 19:42] VITALS: BP 111/69; PULSE 83; RESP 16; TEMP 36.2; O2SAT 95
[2021-05-31] MEDS: oxyCODONE HCl Cr 10 MG Tablet PO (21:49)
[2021-06-01] MEDS: oxyCODONE 5 MG Tablet PO ×3 (06:16→20:00)
[2021-06-01] MEDS: Acetaminophen 500 MG Tablet 1000 MG PO ×3 (06:22→22:10)
[2021-06-01] MEDS: Enoxaparin 40 MG/0.4 ML Syringe SC (06:22)
[2021-06-01] MEDS: Silver Sulfadiazine 1% Crm 50 gm Bottle 1 APPLIC TOPICAL (06:51)
[2021-06-01 07:54] VITALS: BP 97/59; PULSE 65; RESP 17; TEMP 36.6; O2SAT 97
[2021-06-01] MEDS: Cholecalciferol (VIT D3) 25 MCG TABLET (1,000 UNITS) PO (10:02)
[2021-06-01] MEDS: Venlafaxine XR 75 MG Capsule PO (10:02)
[2021-06-01] MEDS: Senna/Docusate Sodium 1 Tablet 2 TABLET PO ×2 (10:02→22:10)
[2021-06-01] MEDS: clonazePAM 1 MG Tablet PO ×2 (10:02→22:11)
[2021-06-01] MEDS: oxyCODONE HCl Cr 10 MG Tablet PO ×2 (10:02→22:10)
--- NOTE | 2021-06-01 10:15 | PCM.PN.BLA ---
Progress Note Afebrile VSS - BP is a little low with the initiation of Oxycontin. It was 97/59 this AM. She is not on an antihypertensive. HR is WNL. Maintaining appropriate oxygen saturation on RA Oral intake is good Discussed with nursing - no problems that need addressed Reviewed the PT/OT/ST notes Medication list reviewed. She was seen by Dr. Madrigal last evening. He agreed with the medication changes that were made yesterday and will follow up with her as an OP. Mariah is tolerating the Effexor XR without adverse side effects since last Monday. If no adverse reactions by the end of the week will increase to 150 mg to assist with pain control and depression. Anxiety is well controlled at this time with Klonopin and she has not had a panic attack since 05/27/21. She tells me the pain is better controlled and when I entered the room she actually had her Left leg elevated appropriately above the level of her heart. she has also been faithful with wearing the sling. No CP and no SOB or hemoptysis. Denies palpitations and lightheadedness. Physical Exam Const Constitutional Narrative: Making good eye contact. She is pleasant and appropriate. She is lying in bed with her left leg elevated on pillows. She does not appear to be in any distress at the present time. General Appearance: well kempt and well developed Resp clear to auscultation bilaterally Effort and Inspection: able to speak in complete sentences Cardio regular rate, regular rhythm, no murmurs and no gallops GI normal to inspection, nondistended, normoactive bowel sounds, soft to palpation and non-tender Extremity Extremity Narrative: better color in the toes of the left foot and less swelling now that she is appropriately elevating the Left LE. she also has less swelling in the fingers of the Left hand since reinstituting the sling. Skin General Skin Exam: no breakdown Rashes: no rashes Assessment & Plan Assessment/Plan (1) Pain of left arm: (2) Pain in left lower leg: (3) Physical debility: (4) Status post open reduction and internal fixation (ORIF) of fracture: (5) Pressure ulcer of ankle: (6) Generalized anxiety disorder with panic attacks: PLAN: 1. She was seen by Dr. Mike today and he is planning on ORIF in 1 week. Mariah is agreeable. She asked if she would be coming back to rehab after the surgery and I told her she probably would. She will still be non-wt bearing on the LUE and the LLE for another 6 weeks at least. She has not made any phone calls to local agencies providing home care to determine availability and cost. She has not made an appt at the [facility] and I told her once again that I would not be able to give her more than a 1 month RX for Klonopin at [place] and she would need to get it from psychiatry or her PCP. She has chosen Dr. French Moss to be her PCP. 2. Continue strengthening. 3. No changes to the current drug regimen today Visit Charges Inpatient E&M: 29575 Subs Hosp L2
--- NOTE | 2021-06-01 13:48 | PN.ORTHO_ITS ---
Subjective Subjective Patient seen and examined at bedside today in acute rehab. Patient has been transferring with a slide board. She states her pain is relatively well controlled although she is having some left wrist pain. She has concerns of when she can go home. She denies any numbness or tingling. Objective Data Objective Data Vital Signs: Vital Signs Temp Pulse Resp BP Pulse Ox 97.8 F 65 17 97/59 L 97 06/01/21 07:54 06/01/21 07:54 06/01/21 07:54 06/01/21 07:54 06/01/21 07:54 Oxygen Delivery Method Room Air Weight: 203 lb 11.314 oz Body Mass Index (BMI) 32.0 Intake & Output: Intake and Output for Last 24 Hours 05/30/21 05/31/21 06/01/21 23:59 23:59 23:59 Intake Total 1480 / 1480 1460 / 1460 660 / 660 Output Total 1175 / 1175 1575 / 1575 Balance 305 / 305 -115 / -115 660 / 660 Lab / Micro Data Result Diagrams: 05/31/21 15:00 05/31/21 15:00 Labs: Laboratory Results - last 24 hr 05/31/21 15:00: Sodium 142, Potassium 4.1, Chloride 105, Carbon Dioxide 28.0, Anion Gap 9, BUN 22 H, Creatinine 0.86, Estim Creat Clear Calc 66.80, Est GFR (MDRD) Af Amer 87, Est GFR (MDRD) Non-Af 72, BUN/Creatinine Ratio 25.6 H, Glucose 118 H, Calcium 9.4 05/31/21 15:00: WBC 7.2, RBC 4.80, Hgb 13.2, Hct 43.0, MCV 89.6, MCH 27.5, MCHC 30.7 L, RDW Std Deviation 42.8, RDW Coeff of Joleen 13.0, Plt Count 500 H, MPV 9.2 Physical Exam Narrative General-ANO x3, anxious appearing Left upper extremity-Short arm splint in place, clean dry and intact. Wiggles fingers on command. Cardinal motions left hand are intact. Sensation intact l ight touch throughout. Brisk upper refill in the fingertips. Right lower extremity-right ankle spanning external fixator in place. Brisk capillary refill in the toes. Pin sites appear benign. Palpable DP pulse. Dressing is clean dry and intact. Assessment & Plan Assessment/Plan (1) Trimalleolar fracture of left ankle: (2) Fracture of left radius and ulna: PLAN: Patient is 2 weeks status post right ankle closed reduction application of external fixator, placement of left wrist dorsal spanning plate. Planning surgical intervention in the form of right ankle removal of external fixator, open reduction internal fixation in the next week or so. I will have my office coordinate this with the rehab staff. Continue wound care. We discussed the procedure, its risks, benefits, alternatives. I explained she will be 6 weeks nonweightbearing after surgery. All questions answered to patient's satisfaction. I will order x-rays of the left wrist due to some worsening pain to ensure no surgical intervention is warranted in the acute phase, as the previous plan was for removal of the plate around 3 months from index procedure.
--- NOTE | 2021-06-01 14:30 | RAD_ITS ---
STUDY: X-RAY - LEFT WRIST REASON FOR EXAM: Female, 61 years old. POST-OP TECHNIQUE: 3 view(s) of the wrist were obtained. COMPARISON: Left wrist x-ray dated May 14, 2021 and intraoperative fluoroscopic exam dated May 16, 2021 FINDINGS: Stable cortical plate screw construct across the distal third aspect of the radius crossing the radial side carpal bones and terminating in the neck of the second metacarpal bone. No visualized hardware complications. Moderate interval healing has occurred at the distal radial and ulnar fracture sites, with 70% healing of the ulnar site and 50% healing at the radial site. No visualized acute abnormalities. The bony structures are moderately demineralized. Visualized distal radius and ulna. Normal radiocarpal articulation. Normal distal radioulnar articulation. Normal carpometacarpal articulation of the thumb. Normal second through fifth carpometacarpal articulations. RAD/Wrist min 3 Views IMPRESSION: 1. Moderate interval healing has occurred at the distal radial and ulnar fracture sites, with 70% healing of the ulnar site and 50% healing at the radial site. No visualized acute abnormalities. Electronically Signed: Jesse Johnson MD at 23:39 EST , Service support ,
[2021-06-01 19:33] VITALS: BP 101/55; PULSE 66; RESP 18; TEMP 36.7; O2SAT 95
[2021-06-01 20:15] VITALS: PULSE 66; RESP 18; O2SAT 95
--- NOTE | 2021-06-02 03:34 | NURSING ---
Reviewed and agree with WEIGHT CHECKER documentation and charting.
[2021-06-02] MEDS: oxyCODONE 5 MG Tablet PO ×3 (06:31→20:18)
[2021-06-02] MEDS: Acetaminophen 500 MG Tablet 1000 MG PO ×3 (06:32→22:28)
[2021-06-02] MEDS: Silver Sulfadiazine 1% Crm 50 gm Bottle 1 APPLIC TOPICAL (06:33)
[2021-06-02] MEDS: Enoxaparin 40 MG/0.4 ML Syringe SC (06:36)
[2021-06-02 07:30] VITALS: BP 99/58; PULSE 72; RESP 16; TEMP 36.1; O2SAT 98
[2021-06-02] MEDS: Venlafaxine XR 75 MG Capsule PO (09:19)
[2021-06-02] MEDS: Cholecalciferol (VIT D3) 25 MCG TABLET (1,000 UNITS) PO (09:19)
[2021-06-02] MEDS: Senna/Docusate Sodium 1 Tablet 2 TABLET PO ×2 (09:20→22:29)
[2021-06-02] MEDS: Polyethylene Glycol 3350 17 GM PACKET PO (09:24)
[2021-06-02] MEDS: oxyCODONE HCl Cr 10 MG Tablet PO ×2 (10:09→22:28)
[2021-06-02] MEDS: clonazePAM 1 MG Tablet PO ×2 (10:09→22:28)
[2021-06-02 19:30] VITALS: BP 99/52; PULSE 70; RESP 16; TEMP 36.5; O2SAT 95
[2021-06-02 22:00] VITALS: PULSE 70; RESP 17; O2SAT 95
[2021-06-03] MEDS: Silver Sulfadiazine 1% Crm 50 gm Bottle 1 APPLIC TOPICAL (06:18)
[2021-06-03] MEDS: Enoxaparin 40 MG/0.4 ML Syringe SC (06:18)
[2021-06-03] MEDS: Acetaminophen 500 MG Tablet 1000 MG PO ×3 (06:22→22:14)
[2021-06-03] MEDS: oxyCODONE 5 MG Tablet PO ×2 (06:22→15:23)
[2021-06-03 07:39] VITALS: BP 102/58; PULSE 62; RESP 16; TEMP 35.9; O2SAT 97
[2021-06-03] MEDS: clonazePAM 1 MG Tablet PO ×2 (10:41→22:15)
[2021-06-03] MEDS: Venlafaxine XR 75 MG Capsule PO (10:41)
[2021-06-03] MEDS: Cholecalciferol (VIT D3) 25 MCG TABLET (1,000 UNITS) PO (10:42)
[2021-06-03] MEDS: oxyCODONE HCl Cr 10 MG Tablet PO ×2 (10:42→22:15)
[2021-06-03] MEDS: Senna/Docusate Sodium 1 Tablet 2 TABLET PO ×2 (10:42→22:15)
--- NOTE | 2021-06-03 11:37 | NURSING ---
Dr. Mike's office called to inform nursing staff that date of surgery will be Jun 10 at 1:45p.
--- NOTE | 2021-06-03 12:16 | PN_ITS ---
Progress Note Mariah was seen on team rounds today. Her Jamar was not present for rounds today. Afebrile VSS Maintaining appropriate oxygen saturation on RA Oral intake is adequate Last bowel movement was 06/01/2021. She is taking the senna but is refusing MiraLAX and Metamucil. Discussed with nursing - no problems that need addressed Reviewed the PT/OT notes - they report she is very motivated and getting stronger. She is cooperative and less fearful now. Medication list reviewed. Has been taking the Oxycodone only 3 times a day for the past 3 days. Anxiety is under good control. Unlikely she will be able to find a home care agency to provide care at [place] due to the high demand and the amount of help she will need. Because she is also non-weight bearing on the LUE as well as the LLE mobility is a big issue. That being said she is now able to maneuver the WC so she may be able to get around on the first floor with WC. A hospital bed has been ordered and there is a BR on the first floor and we are getting a BSC. She is doing well with getting on and of the BSC now and should be able to do this at [facility] with a little more therapy. she is going to have ORIF next and will hopefully come back to rehab for a little additional training after the external fixator is removed. X-rays of the left wrist done yesterday revealed 70% healing of the ulnar fracture and 50% healing at the radial site. Physical Exam Const alert, oriented x3 and no apparent distress General Appearance: cooperative, well kempt and well developed HEENT moist oral mucous membranes Eyes conjunctivae normal and no scleral icterus Resp clear to auscultation bilaterally Effort and Inspection: able to speak in complete sentences Cardio regular rate, regular rhythm, no murmurs and no gallops GI normal to inspection, nondistended, normoactive bowel sounds, soft to palpation and non-tender Extremity no calf tenderness Extremity Narrative: the edema in the left hand and ankle/toes is much better since she has consistently been elevating. There is intact sensation in the fingers and the toes. Peripheral Pulses: Yes pulses 2+ throughout Skin Skin Narrative: No erythema around General Skin Exam: no breakdown Rashes: no rashes Assessment & Plan Assessment/Plan (1) Physical debility: (2) Status post open reduction and internal fixation (ORIF) of fracture: (3) Chronic post-traumatic stress disorder: (4) Borderline personality disorder: PLAN: 1. Mariah is anxious about the upcoming surgery next week.....it is scheduled for . She is afraid she will have more pain than she is currently having. I think the perception of pain is influenced by the psychiatric issues. 2. Continue therapy - getting her legs stronger prior to the next surgery will help to get her mobilized quicker after the next surgery. She will still be NWB on the LUE and the LLE but, the external fixator will be off. Her ability to manage the WC is better and there is a possibility she could go home if she had someone to help other than her 80 YO . She has not called any home care agencies but, the SW has communicated with some of the agencies she knows in [place] and there is 1 place that will consider taking her on but, they need to know a DC date to determine if they have enough staff at the time. I would hope that she will be able to come back to rehab for 7-10 days post op to get the pain under control and work with NWB on the L side without the external fixator present. 3. No change in the medication regimen today Visit Charges Inpatient E&M: 97822 Subs Hosp L2
--- NOTE | 2021-06-03 13:46 | CASEMGMT ---
Social Work IDT met with patient for Team meeting. Discussed patient's progress in PT/OT and nursing. Explained [facility] is still reviewing clinical information from 05/31 and continued stay is not guaranteed. Pt expressed some concern with going home prior to surgery and wanting to return to rehab after surgery. Offered possible SNF stay. Pt denied and only wants to be home. SW to continue to follow for DC planning. Zunilda Ingram, ELECTRICAL EQUIPMENT TECHNICIAN SOFTWARE ENGINEER
--- NOTE | 2021-06-03 16:01 | CASEMGMT ---
Social Work To assist in preparing for pt DC, SW began contacting [facility] agencies to inquire if they service pt area and accept pt insurance. Per phone calls, all [facility] agencies were contacted and unable to accept. [facility] agreed to review referral. Referral sent. They are unable to accept. Will speak with pt further about SNF stay if HHC cannot be obtained. Will continue to follow. SILVIA DiamondW
[2021-06-03 19:21] VITALS: BP 114/66; PULSE 69; RESP 16; TEMP 36.3; O2SAT 95
[2021-06-04] MEDS: oxyCODONE 5 MG Tablet PO ×3 (04:22→17:45)
[2021-06-04] MEDS: Silver Sulfadiazine 1% Crm 50 gm Bottle 1 APPLIC TOPICAL (04:24)
[2021-06-04] MEDS: Acetaminophen 500 MG Tablet 1000 MG PO ×3 (06:33→22:25)
[2021-06-04] MEDS: Enoxaparin 40 MG/0.4 ML Syringe SC (06:34)
[2021-06-04 07:40] VITALS: BP 109/56; PULSE 61; RESP 18; TEMP 36.6; O2SAT 98
[2021-06-04] MEDS: clonazePAM 1 MG Tablet PO ×2 (10:09→22:25)
[2021-06-04] MEDS: Venlafaxine XR 75 MG Capsule PO (10:09)
[2021-06-04] MEDS: oxyCODONE HCl Cr 10 MG Tablet PO (10:10)
[2021-06-04] MEDS: Cholecalciferol (VIT D3) 25 MCG TABLET (1,000 UNITS) PO (10:10)
[2021-06-04] MEDS: Senna/Docusate Sodium 1 Tablet 2 TABLET PO ×2 (10:10→22:25)
[2021-06-04] MEDS: ALPRAZolam 0.25 MG Tablet PO (13:43)
--- NOTE | 2021-06-04 14:17 | PCM.PN.BLA ---
Progress Note Afebrile Vital signs stable Maintaining appropriate oxygen saturation on room air Mariah is c/o waking up at night thinking about her ex who passed 5 years ago.......she tells me that she has never been able to come to terms with this.....it triggers PTSD sx. She is more anxious today and is c/o severe pain in the L arm and leg. No erythema around the pins and minimal swelling in the Left foot and ankle. No increased warmth to touch. No purulent DC. She is noticeably anxious and has tears in her eyes. She does not really tolerate pain well. I suspect she has been taking some pain relievers at home from friends and she may have some tolerance to narcotics. Impressions 1. anxiety/depression/PTSD/borderline personality S. I suspect there is considerable overlay with psychosocial factors and amount of pain she perceives. Will increase the Oxycontin to 20 mg BID. Keep the Oxycodone IR at Q 6H PRN. 2. I reminded her that there is PRN Xanax is still on the JUL 3. Recheck pre-op labs next Monday Visit Charges Inpatient E&M: 82092 Subs Hosp L1
[2021-06-04 20:24] VITALS: BP 101/54; PULSE 69; RESP 18; TEMP 36.7; O2SAT 93
[2021-06-04] MEDS: oxyCODONE HCl Cr 10 MG Tablet 20 MG PO (22:26)
[2021-06-05] MEDS: oxyCODONE 5 MG Tablet PO ×3 (04:55→19:59)
[2021-06-05] MEDS: Silver Sulfadiazine 1% Crm 50 gm Bottle 1 APPLIC TOPICAL (04:57)
[2021-06-05] MEDS: Acetaminophen 500 MG Tablet 1000 MG PO ×3 (05:01→22:00)
[2021-06-05] MEDS: Enoxaparin 40 MG/0.4 ML Syringe SC (05:01)
[2021-06-05 07:48] VITALS: BP 92/60; PULSE 58; RESP 16; TEMP 36.4; O2SAT 98
[2021-06-05] MEDS: ALPRAZolam 0.25 MG Tablet PO ×2 (08:08→19:59)
[2021-06-05 08:30] VITALS: BP 104/60
[2021-06-05] MEDS: oxyCODONE HCl Cr 10 MG Tablet 20 MG PO ×2 (10:03→22:01)
[2021-06-05] MEDS: clonazePAM 1 MG Tablet PO ×2 (10:04→22:02)
[2021-06-05] MEDS: Venlafaxine XR 75 MG Capsule PO (10:04)
[2021-06-05] MEDS: Polyethylene Glycol 3350 17 GM PACKET PO (10:05)
[2021-06-05] MEDS: Senna/Docusate Sodium 1 Tablet 2 TABLET PO ×2 (10:06→22:01)
[2021-06-05] MEDS: Cholecalciferol (VIT D3) 25 MCG TABLET (1,000 UNITS) PO (10:06)
[2021-06-05] MEDS: Magnesium Hydroxide 30 ML UDC PO (13:47)
[2021-06-05 19:26] VITALS: BP 97/57; PULSE 79; RESP 17; TEMP 36.6; O2SAT 96
[2021-06-06] MEDS: oxyCODONE 5 MG Tablet PO ×3 (05:00→20:01)
[2021-06-06] MEDS: Acetaminophen 500 MG Tablet 1000 MG PO ×3 (05:00→21:41)
[2021-06-06] MEDS: Silver Sulfadiazine 1% Crm 50 gm Bottle 1 APPLIC TOPICAL (05:01)
[2021-06-06] MEDS: Enoxaparin 40 MG/0.4 ML Syringe SC (05:01)
[2021-06-06 07:59] VITALS: BP 102/54; PULSE 63; RESP 16; TEMP 36.3; O2SAT 93
[2021-06-06] MEDS: Venlafaxine XR 75 MG Capsule PO (10:15)
[2021-06-06] MEDS: clonazePAM 1 MG Tablet PO ×2 (10:15→21:42)
[2021-06-06] MEDS: Cholecalciferol (VIT D3) 25 MCG TABLET (1,000 UNITS) PO (10:16)
[2021-06-06] MEDS: Senna/Docusate Sodium 1 Tablet 2 TABLET PO ×2 (10:16→21:41)
[2021-06-06] MEDS: oxyCODONE HCl Cr 10 MG Tablet 20 MG PO ×2 (11:21→21:42)
--- NOTE | 2021-06-06 12:06 | PN_ITS ---
Progress Note Afebrile VSS Maintaining appropriate oxygen saturation on RA Oral intake is good Discussed with nursing - no problems that need addressed Reviewed the PT/OT/ST notes Medication list reviewed. Taking Xanax 1-2 times a day and taking Oxy IR 10 mg 3 times a day......even with the increase in the Oxycontin to20 mg BID on Monday. Denies calf pain, palpitations, chest pain, shortness of breath. She admits to being somewhat anxious about the upcoming surgery this week and her ability to come back to rehab and then return home. She is happy with her pain control and anxiety control at this time. Physical Exam Const alert, oriented x3 and no apparent distress Constitutional Narrative: Making good eye contact and is talkative. She is very pleasant. General Appearance: cooperative and comfortable Resp clear to auscultation bilaterally Cardio regular rate and regular rhythm Extremity Extremity Narrative: No with erythema around the pins. No purulent discharge. Minimal swelling in the toes and they are normal color. Her toes do get dusky when her leg is dependent. This is likely secondary to venous hypertension. She has intact sensation in the toes and left foot. Intact sensation in the left fingertips and the fingers are a normal skin color with decreased swelling. Assessment & Plan Assessment/Plan (1) Physical debility: (2) Status post open reduction and internal fixation (ORIF) of fracture: (3) Status post open reduction and internal fixation (ORIF) of fracture: (4) Pressure ulcer of ankle: (5) Generalized anxiety disorder with panic attacks: (6) Chronic post-traumatic stress disorder: (7) Type 2 diabetes mellitus: PLAN: 1. Lab ordered for Monday prior to the planned surgery on . 2. Continue current drug regimen with no changes 3. We will follow-up with Dr. Madrigal post discharge for pain control 4. Plans to follow-up in [place]. Knows that I will not prescribe more than 1 month of Klonopin and that she will need to have her PCP or [place] [facility] clinic write for ongoing prescriptions. 5. Will need to come back to rehab for additional 1 week post surgery for PT/OT since she will no longer have the external fixator so that she can learn to dress herself and compensate for probable boot on the LLE. she can hop now to get to the BSC. Visit Charges Inpatient E&M: 07530 Subs Hosp L2
[2021-06-06] MEDS: ALPRAZolam 0.25 MG Tablet PO (18:59)
[2021-06-06 19:20] VITALS: BP 119/68; PULSE 79; RESP 18; TEMP 36.6; O2SAT 97
[2021-06-07] MEDS: oxyCODONE 5 MG Tablet PO ×3 (02:22→20:19)
[2021-06-07] MEDS: ALPRAZolam 0.25 MG Tablet PO (04:19)
[2021-06-07] MEDS: Acetaminophen 500 MG Tablet 1000 MG PO ×3 (06:45→22:09)
[2021-06-07] MEDS: Enoxaparin 40 MG/0.4 ML Syringe SC (06:45)
[2021-06-07] MEDS: Silver Sulfadiazine 1% Crm 50 gm Bottle 1 APPLIC TOPICAL (06:46)
[2021-06-07 07:41] VITALS: BP 107/61; PULSE 61; RESP 12; TEMP 36; O2SAT 93
--- NOTE | 2021-06-07 10:05 | PCM.PN.BLA ---
Progress Note Afebrile Vital signs are stable Maintaining appropriate oxygen saturation on room air Good oral intake Very irritable today. States she did not sleep all night and that she is in severe pain. No obvious clinical signs of being in extreme pain. she is very anxious about the upcoming surgery on . The anxiety affects her perception of pain. Not taking the Xanax as often as she could and also taking Oxycodone 10 mg as often as she could. Gave the OT a hard time but, she did her therapy this AM. She denies john pain, SOB, cough, hemoptysis, palpitations, N/V/abd pain. Physical Exam Const alert and oriented x3 Constitutional Narrative: she is very anxious about another surgery but, she knows she has to have it. She is irritated today and striking out at te therapists. General Appearance: anxious and appears older than stated age Chest Chest: symmetrical chest wall rise Resp clear to auscultation bilaterally Effort and Inspection: able to speak in complete sentences; Negative for tachypneic Cardio regular rate, regular rhythm and no gallops Cardio Narrative: no ectopy today GI normal to inspection, nondistended, normoactive bowel sounds, soft to palpation and non-tender Extremity no calf tenderness Extremity Narrative: minimal edema of the left foot and ankle. No erythema around any of the pins and no purulent DC. Assessment & Plan Assessment/Plan (1) Physical debility: (2) Borderline personality disorder: (3) Chronic post-traumatic stress disorder: (4) Generalized anxiety disorder with panic attacks: PLAN: 1. Increase the Effexor to 150 XR Q AM for better control of anxiety/depression/pain 2. Continue the Oxycontin, Oxycodone, Klonopin and Xanax as ordered. 3. Add Trazodone 50 mg at HS for the next 3 nights to help with sleep 4. Lab ordered for tomorrow Visit Charges Inpatient E&M: 35329 Subs Hosp L2
[2021-06-07] MEDS: Cholecalciferol (VIT D3) 25 MCG TABLET (1,000 UNITS) PO (10:24)
[2021-06-07] MEDS: oxyCODONE HCl Cr 10 MG Tablet 20 MG PO ×2 (10:24→22:09)
[2021-06-07] MEDS: clonazePAM 1 MG Tablet PO ×2 (10:24→22:08)
[2021-06-07] MEDS: Senna/Docusate Sodium 1 Tablet 2 TABLET PO ×2 (10:24→22:09)
[2021-06-07] MEDS: Venlafaxine XR 150 MG Capsule PO (11:45)
--- NOTE | 2021-06-07 14:05 | CASEMGMT ---
Social Work Discussed with Team DC plans. Pt has surgery scheduled 06/10 and pt would like to remain in [facility] until surgery and return to [facility] for continued therapy after surgery. Explained SW contacted about all [facility] agencies and no one is able to accept pt's insurance and/or staff her area. Met with patient to discuss above plan. Explained to pt that insurance may not approve for pt to remain in [facility] until surgery and/or to approve to return to [facility] after surgery. Also explained pt would not be able to go home with [facility], only outpatient. Pt agreeable to outpatient PT/OT. Pt agreeable to [facility]. SW to notify [facility] of DC date to confirm delivery of all ordered DME. SW to continue to follow. Zunilda Ingram, DISEASE CASE MANAGER [employer]IL [employer]
--- NOTE | 2021-06-07 18:20 | NURSING ---
Reviewed and agree with LPNs charting and documentation
[2021-06-07 19:16] VITALS: BP 111/63; PULSE 67; RESP 15; TEMP 36.7; O2SAT 94
[2021-06-07 22:00] VITALS: PULSE 67; RESP 18; O2SAT 94
[2021-06-07] MEDS: traZODone 50 MG Tablet PO (22:33)
[2021-06-08] MEDS: Silver Sulfadiazine 1% Crm 50 gm Bottle 1 APPLIC TOPICAL (06:06)
[2021-06-08 06:07] LABS: Absolute Lymphocyte Count 2.58 X10^3/uL (0.83-4.51); Absolute Neutrophil Count 3.1 X10^3/uL (2.0-7.7); Basophil# 0.03 X10^3/uL; Basophil% 0.5 % (0-1); Eosinophil# 0.17 X10^3/uL; Eosinophils% 2.6 % (0-5); Hematocrit 41.8 % (37-47); Lymphocyte # 2.58 X10^3/ul (0.83-4.51); Mean Corp Hgb Conc 31.1 g/dL (32-36); Mean Corpuscular Hgb 27.8 pg (27.0-32.0); Mean Corpuscular Volume 89.5 fL (81-99); Mean Platelet Vol. 9.1 fl (6.2-12.0); Monocyte# 0.73 X10^3/uL; NRBC Flagged by Analyzer 0 % (0-5); Neutrophil % 46.7 % (47-70); Platelet Count 377 K/mm3 (150-450); Prothrombin Time (Protime)PT. 12.6 SECONDS (11.7-14.9); RBC Distribution Width SD 42.7 fl (35.1-43.9); Red Blood Count 4.67 M/mm3 (4.2-5.4); White Blood Count 6.6 K/mm3 (4.4-11.0)
[2021-06-08] MEDS: Enoxaparin 40 MG/0.4 ML Syringe SC (06:07)
[2021-06-08] MEDS: oxyCODONE 5 MG Tablet PO ×3 (06:11→20:03)
[2021-06-08] MEDS: Acetaminophen 500 MG Tablet 1000 MG PO ×3 (06:11→22:03)
[2021-06-08 06:28] LABS: Anion Gap 4 (5-15); BUN 27 mg/dL (7-18); BUN/Creat Ratio 29.4 RATIO (10-20); Calcium,Total 9.1 mg/dL (8.5-10.1); Chloride 104 mmol/L (98-107); Creatinine, Serum 0.92 mg/dL (0.55-1.02); EST Glomerular Filtration Rate 66 mL/min (>60); Est Glom Filt Rate - Afr Amer 80 mL/min (>60); Estimated Creatinine Clearance 62.45 ml/min; Glucose 100 mg/dL (74-106); Potassium 4.3 mmol/L (3.5-5.1); Sodium Level 141 mmol/L (136-145)
[2021-06-08 07:18] VITALS: BP 97/56; PULSE 59; RESP 16; TEMP 36.2; O2SAT 95
[2021-06-08 08:25] LABS: Partial Thromboplast Time 27.6 Seconds (24.1-36.2)
[2021-06-08] MEDS: Venlafaxine XR 150 MG Capsule PO (09:57)
[2021-06-08] MEDS: clonazePAM 1 MG Tablet PO ×2 (09:57→22:02)
[2021-06-08] MEDS: Senna/Docusate Sodium 1 Tablet 2 TABLET PO ×2 (09:57→22:02)
[2021-06-08] MEDS: Cholecalciferol (VIT D3) 25 MCG TABLET (1,000 UNITS) PO (09:57)
[2021-06-08] MEDS: oxyCODONE HCl Cr 10 MG Tablet 20 MG PO ×2 (09:57→22:02)
[2021-06-08 20:08] VITALS: BP 93/50; PULSE 70; RESP 16; TEMP 36.6; O2SAT 92
[2021-06-08 22:00] VITALS: PULSE 72; RESP 16; O2SAT 95
[2021-06-08] MEDS: traZODone 50 MG Tablet PO (22:02)
[2021-06-09] MEDS: Acetaminophen 500 MG Tablet 1000 MG PO ×3 (06:41→20:23)
[2021-06-09] MEDS: oxyCODONE 5 MG Tablet PO ×3 (06:41→18:51)
[2021-06-09] MEDS: Enoxaparin 40 MG/0.4 ML Syringe SC (06:42)
[2021-06-09] MEDS: Silver Sulfadiazine 1% Crm 50 gm Bottle 1 APPLIC TOPICAL (06:42)
[2021-06-09 07:35] VITALS: BP 105/59; PULSE 74; RESP 16; TEMP 36.2; O2SAT 95
[2021-06-09] MEDS: Cholecalciferol (VIT D3) 25 MCG TABLET (1,000 UNITS) PO (08:11)
[2021-06-09] MEDS: Venlafaxine XR 150 MG Capsule PO (08:11)
[2021-06-09] MEDS: Senna/Docusate Sodium 1 Tablet 2 TABLET PO ×2 (08:11→20:22)
[2021-06-09] MEDS: clonazePAM 1 MG Tablet PO ×2 (09:11→20:22)
[2021-06-09] MEDS: oxyCODONE HCl Cr 10 MG Tablet 20 MG PO ×2 (09:11→21:10)
[2021-06-09] MEDS: Magnesium Hydroxide 30 ML UDC PO (13:26)
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
--- NOTE | 2021-06-09 13:46 | DCINST_ITS ---
Discharge Instructions Diet Discharge Diet: Low fat / Low cholesterol and Carb Control Diet Activity Discharge Activity: May Not Drive Weight Bearing Status: No weight bearing (Left arm and leg) Lifting Restrictions: 5 lbs with the R arm Keep extremity elevated above heart level: Left Arm and Left Leg Dressing / Incision Call your doctor if you observe: Fever of 101 or Higher, Coldness, Increased Pain, Inability to urinate, Inability to have a bowel movement, Shortness of breath, Chest pain, Increased palpitations (irregular heartbeat), Calf discomfo rt and Uncontrolled pain Suture Line Care: Avoid Pulling/Pushing and Avoid Pinching/Bending Change Dressing in: 1 day Remove Dressing in: 1 day Cleanse incision/area with: Normal Saline Follow Up Care Please Follow Up With: Den Mike DO Test Results: Test results from this visit will be discussed in further detail at your follow-up appointment, if applicable. Pending Tests Upon Discharge: none Discharge Plan Admission Admit Date/Time: 05/24/21 16:03 Primary Reason for Your Visit: debility due to L radius and ulna fracture and a trimalleolar FX L ankle Attending Provider: Rosa Enriquez Primary Care Provider: Care Physician,No Primary Consulting Providers: Saurabh Madrigal Discharge Orders/Prescriptions Prescriptions: New trazodone 50 mg Tablet 50 - 100 mg PO QHS Qty: 0 RF: 0 sennosides-docusate sodium [Stool Softener-Stimulant Laxat] 8.6-50 mg Tablet 2 tab PO BID Qty: 0 RF: 0 clonazepam 1 mg Tablet 1 mg PO Q12 Qty: 0 RF: 0 venlafaxine 150 mg Capsule,Extended Release 24hr 150 mg PO DAILY Qty: 0 RF: 0 alprazolam 0.25 mg Tablet 0.25 mg PO BID PRN PRN (Reason: panic attack) Qty: 0 RF: 0 oxycodone 5 mg Tablet 5 - 10 mg PO Q6H PRN PRN (Reason: Pain Score 4-10) Qty: 0 RF: 0 cholecalciferol (vitamin D3) 25 mcg (1,000 unit) Tablet 25 mcg PO DAILY Qty: 0 RF: 0 oxycodone [OxyContin] 10 mg Tablet,Oral Only,Ext.Rel.12 Hr 20 mg PO BID Qty: 0 RF: 0 Continued bisacodyl 10 mg Suppository 10 mg NV DAILY PRN PRN (Reason: CONSTIPATION) Qty: 0 RF: 0 alprazolam 0.25 mg tablet 0.25 mg PO TID PRN (Reason: anxiety) Qty: 10 RF: 0 sennosides-docusate sodium [Stool Softener-Stimulant Laxat] 8.6-50 mg tablet 2 tab PO BID RF: 0 acetaminophen 500 mg tablet 1,000 mg PO Q8 RF: 0 nicotine 21 mg/24 hr patch 24 hour 21 mg transdermal DAILY RF: 0 menthol-zinc oxide [Calmoseptine] 0.44-20.6 % ointment 1 applic topical BID RF: 0 Changed nystatin [Nyamyc] 100,000 unit/gram powder 1 applic topical BID PRN (Reason: rash in intertrigenous area) Qty: 0 RF: 0 Discontinued oxycodone 5 mg Tablet 10 mg PO Q4H PRN PRN (Reason: Pain Score 4-10) 2 Days Qty: 10 RF: 0 buspirone 5 mg tablet 10 mg PO BID RF: 0 polyethylene glycol 3350 17 gram powder in packet 17 g PO DAILY RF: 0 enoxaparin 40 mg/0.4 mL syringe 40 mg subcut DAILY RF: 0 Daily Fiber (psyllium-aspart) 3 gram powder in packet 1 packet PO BID RF: 0 Referrals / Follow Up: Care Physician,No Primary [Primary Care Provider] - Disposition Disposition (needs filled in before D/C Order can be placed): Acute Care Hospital
--- NOTE | 2021-06-09 14:11 | PCM.DC.SUM ---
Providers Date of Admission: 05/24/21 Primary Care Physician: Rosa Primary Care Phys Consultations 05/31/21 12:03 Consult: Pain Management Routine Consulting Provider: Saurabh Madrigal Reason for Consult: pain due to Fractures/surgery EMERGENT Consult: No MD Notified: Yes Date Notified: 05/31/21 Time Notified: 12:03 Method of Notification: Answering Service Reason For Visit: L.ANKLE/L.WRIST FRACTURE Diagnosis Discharge Diagnosis (1) Physical debility: Status: Acute Code(s): R53.81 - Other malaise (2) Fracture of left radius and ulna: Status: Acute Code(s): S52.92XA - Unspecified fracture of left forearm, initial encounter for closed fracture; S52.202A - Unspecified fracture of shaft of left ulna, initial encounter for closed fracture (3) Trimalleolar fracture of left ankle: Status: Acute Code(s): S82.852A - Displaced trimalleolar fracture of left lower leg, initial encounter for closed fracture (4) Status post open reduction and internal fixation (ORIF) of fracture: Status: Acute Code(s): Z98.890 - Other specified postprocedural states; Z87.81 - Personal history of (healed) traumatic fracture (5) Status post open reduction and internal fixation (ORIF) of fracture: Status: Acute Code(s): Z98.890 - Other specified postprocedural states; Z87.81 - Personal history of (healed) traumatic fracture (6) Pressure ulcer of ankle: Status: Acute Code(s): L89.509 - Pressure ulcer of unspecified ankle, unspecified stage (7) Borderline personality disorder: Status: Acute Code(s): F60.3 - Borderline personality disorder (8) Chronic post-traumatic stress disorder: Status: Acute Code(s): F43.12 - Post-traumatic stress disorder, chronic (9) Generalized anxiety disorder with panic attacks: Status: Acute Code(s): F41.1 - Generalized anxiety disorder; F41.0 - Panic disorder [episodic paroxysmal anxiety] (10) Type 2 diabetes mellitus: Status: Chronic Code(s): E11.9 - Type 2 diabetes mellitus without complications (11) Pain in left lower leg: Status: Acute Code(s): M79.662 - Pain in left lower leg (12) Pain of left arm: Status: Acute Code(s): M79.602 - Pain in left arm (13) Tobacco dependence due to cigarettes: Status: Acute Code(s): F17.210 - Nicotine dependence, cigarettes, uncomplicated (14) Chronic back pain: Status: Chronic Code(s): M54.9 - Dorsalgia, unspecified; G89.29 - Other chronic pain (15) Vitamin D deficiency: Status: Chronic Code(s): E55.9 - Vitamin D deficiency, unspecified (16) COPD (chronic obstructive pulmonary disease): Status: Chronic Code(s): J44.9 - Chronic obstructive pulmonary disease, unspecified Plan: 1. Discharge to surgery at [facility] on 06/10/20 for ORIF of Left trimalleolar ankle fracture by Dr. Avtar Mike Medications at Discharge Home Medications acetaminophen 1,000 mg PO Q8 05/24/21 alprazolam 0.25 mg PO TID PRN #10 tab 05/24/21 bisacodyl 10 mg NM DAILY PRN PRN #0 ea 05/24/21 menthol-zinc oxide [Calmoseptine] 1 applic TOPICAL BID 05/24/21 nicotine 21 mg TRANSDERMAL DAILY 05/24/21 sennosides-docusate sodium [Stool Softener-Stimulant Laxat] 2 tab PO BID 05/24/21 alprazolam 0.25 mg PO BID PRN PRN #0 tab 06/09/21 cholecalciferol (vitamin D3) 25 mcg PO DAILY #0 tab 06/09/21 clonazepam 1 mg PO Q12 #0 tab 06/09/21 nystatin [Nyamyc] 1 applic TOPICAL BID PRN #0 g 06/09/21 oxycodone 5 - 10 mg PO Q6H PRN PRN #0 tab 06/09/21 oxycodone [OxyContin] 20 mg PO BID #0 tab 06/09/21 sennosides-docusate sodium [Stool Softener-Stimulant Laxat] 2 tab PO BID #0 tab 06/09/21 trazodone 50 - 100 mg PO QHS #0 tab 06/09/21 venlafaxine 150 mg PO DAILY #0 cap 06/09/21 Hospital Course Operations None Procedures None Summary of Care Provided Minutes Spent on Discharge: 35 Hospital Course: SALAZAR ROTHMAN, is a 60 YO F with a PMH of prior benzodiazepine dependence for 30 years, hx of Hepatitis B, chronic pain S., brain aneurysms (has had 4 surgeries), diet controlled DM II, obesity, anxiety with panic attacks, depression, OA, COPD, tobacco dependence, vitamin D deficiency, migraines, fatty infiltration of the liver, hyperlipidemia, reported history of pernicious anemia, benign colon polyps, borderline personality disorder and irritable bowel syndrome who was brought to the ED at [facility] on 05/14/21 stating that she had fallen down some steps 10 days prior and her ankle was swollen and painful. She could not bear weight. XRAYs in the ED showed a acute trimalleolar left ankle fracture/dislocation, a nondisplaced fracture of the right fourth metatarsal neck, comminuted and impacted fractures of the left distal radius and ulna with mild displacement and chronic distal tibial and fibular shaft fractures on the left. She also had open wounds over the left foot and ankle due to internal pressure from the severe swelling. She was seen in consultation by Dr. Austin and went to surgery on 05/16/21 for closed reduction and placement of an internal dorsal spanning plate to the left wrist, closed reduction of the left ankle fracture/dislocation and application of spanning external fixator to the left ankle and debridement of superficial wounds x3 by Dr. Mike. Postoperative course was complicated by severe constipation and complaints of uncontrolled pain and anxiety. She was seen by PT and OT and she is non-wt bearing on the LLE with an external fixator in place and she can not bear wt on the Left hand or wrist. They recommended acute rehab. She was transferred to the rehab floor at [facility] on 05/24/21 for 3 hours of therapy daily to restore function/independence at or near her baseline. Her is 80 YO and he is disabled so he will not be much help to her at home. 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 She was very anxious and fearful when she arrived in rehab and needed much encouragement to even attempt therapy. She was not able to sleep and she was tremulous. She was started on Klonopin 1 mg every 12H and she has done well with this. She occasionally needs a Xanax 0.25 mg for a panic attack. She was so anxious for a few days prior to DC over the upcoming surgery she could not sleep and Trazodone was added at Bedtime and it was effective. She was started on Effexor XR for anxiety/Depression/chronic pain and this has been well tolerated and is helping. She is less reactionary now and has been less irritable and angry. She was seen in consult by Behavioral Health and they have given her a contact number so she can follow up with [facility] post DC. She understands that she must do that if she is going to stay on Klonopin because her PCP is unlikely to want to take this on. she was also seen in consult by Dr. Madrigal for pain management and she will be following up with him post DC to manage her pain. Salazar was discharged on 06/10/21 to the surgery dept at [facility] for a planned ORIF of the L ankle fractures with removal of the external fixator. I anticipate she will be kept overnight and then transferred back to rehab on the . Physical Exam Const alert, oriented x3, no apparent distress and well nourished General Appearance: cooperative and well developed HEENT normocephalic HEENT Narrative: She was reminded to increase her fluid intake today to prevent low BP's in surgery. Mouth: dry mucous membranes Eyes PERRL and EOMs intact bilaterally Eyes Narrative: No scleral icterus and no conjunctival irritation. Neck No nuchal rigidity and supple Resp normal respiratory effort, normal air movement and clear to auscultation bilaterally Resp Narrative: Able to speak in complete sentences. Cardio regular rate, regular rhythm, S1 normal heart sound, S2 normal heart sound, no murmurs, no rub and no gallops Cardio Narrative: No ectopy. Both feet and hands are warm to touch with intact sensation. No cyanosis. GI normal to inspection, nondistended, normoactive bowel sounds, soft to palpation and non-tender Extremity Extremity Narrative: Mild edema in the left foot. The edema in the toes has decreased significantly now that she understands how to elevate the left lower extremity when in the wheelchair or in bed. Mild edema in the fingers on the left hand but they are normal color now. General Extremity: edema; Negative for clubbing or cyanosis Skin skin turgor normal General Skin Exam: no breakdown Rashes: no rashes Neuro CN's II-XII intact bilaterally, no focal motor deficits and no sensory deficits noted Speech: speech normal Psych denies homicidal ideation and denies suicidal ideation Appearance: appropriate Attitude: No agitated Mood & Affect: anxious Thought Content: No delusion(s) Weight / BMI Weight Weight: 203 lb 11.314 oz Body Mass Index (BMI) 32.0 ABG / Lab / Microbiology Data Result Diagrams: 06/08/21 05:42 06/08/21 05:42 Microbiology: Microbiology 06/09/21 06:35 Nasal Secretion SARS-CoV-2 Antigen (Rapid) - Final D/C Instructions Discharge Diet: Low fat / Low cholesterol and Carb Control Diet Weight Bearing Status: No weight bearing (Left arm and leg) Keep extremity elevated above heart level: Left Arm and Left Leg Call your doctor if you observe: Fever of 101 or Higher, Coldness, Increased Pain, Inability to urinate, Inability to have a bowel movement, Shortness of breath, Chest pain, Increased palpitations (irregular heartbeat), Calf discomfort and Uncontrolled pain Suture Line Care: Avoid Pulling/Pushing and Avoid Pinching/Bending Cleanse incision/area with: Normal Saline Pending Tests Upon Discharge: none Please Follow Up With: Den Mike, DO Meaningful Use Info Meaningful Use Diagnoses (Choose all that apply): None applicable Discharge Plan Admission Admit Date/Time: 05/24/21 16:03 Primary Reason for Your Visit: debility due to L radius and ulna fracture and a trimalleolar FX L ankle Attending Provider: Rosa Enriquez Primary Care Provider: Care Physician,No Primary Consulting Providers: Saurabh Madrigal Discharge Orders/Prescriptions Prescriptions: New trazodone 50 mg Tablet 50 - 100 mg PO QHS Qty: 0 RF: 0 sennosides-docusate sodium [Stool Softener-Stimulant Laxat] 8.6-50 mg Tablet 2 tab PO BID Qty: 0 RF: 0 clonazepam 1 mg Tablet 1 mg PO Q12 Qty: 0 RF: 0 venlafaxine 150 mg Capsule,Extended Release 24hr 150 mg PO DAILY Qty: 0 RF: 0 alprazolam 0.25 mg Tablet 0.25 mg PO BID PRN PRN (Reason: panic attack) Qty: 0 RF: 0 oxycodone 5 mg Tablet 5 - 10 mg PO Q6H PRN PRN (Reason: Pain Score 4-10) Qty: 0 RF: 0 cholecalciferol (vitamin D3) 25 mcg (1,000 unit) Tablet 25 mcg PO DAILY Qty: 0 RF: 0 oxycodone [OxyContin] 10 mg Tablet,Oral Only,Ext.Rel.12 Hr 20 mg PO BID Qty: 0 RF: 0 Continued bisacodyl 10 mg Suppository 10 mg NM DAILY PRN PRN (Reason: CONSTIPATION) Qty: 0 RF: 0 alprazolam 0.25 mg tablet 0.25 mg PO TID PRN (Reason: anxiety) Qty: 10 RF: 0 sennosides-docusate sodium [Stool Softener-Stimulant Laxat] 8.6-50 mg tablet 2 tab PO BID RF: 0 acetaminophen 500 mg tablet 1,000 mg PO Q8 RF: 0 nicotine 21 mg/24 hr patch 24 hour 21 mg transdermal DAILY RF: 0 menthol-zinc oxide [Calmoseptine] 0.44-20.6 % ointment 1 applic topical BID RF: 0 Changed nystatin [Nyamyc] 100,000 unit/gram powder 1 applic topical BID PRN (Reason: rash in intertrigenous area) Qty: 0 RF: 0 Discontinued oxycodone 5 mg Tablet 10 mg PO Q4H PRN PRN (Reason: Pain Score 4-10) 2 Days Qty: 10 RF: 0 buspirone 5 mg tablet 10 mg PO BID RF: 0 polyethylene glycol 3350 17 gram powder in packet 17 g PO DAILY RF: 0 enoxaparin 40 mg/0.4 mL syringe 40 mg subcut DAILY RF: 0 Daily Fiber (psyllium-aspart) 3 gram powder in packet 1 packet PO BID RF: 0 Referrals / Follow Up: Care Physician,No Primary [Primary Care Provider] - Disposition Disposition (needs filled in before D/C Order can be placed): Acute Care Hospital Charges/Coding Visit Charges Inpatient E&M: 87989 Disch Hosp
[2021-06-09] MEDS: ALPRAZolam 0.25 MG Tablet PO (14:48)
[2021-06-09] MEDS: Bisacodyl 10 MG Suppository RC (18:50)
[2021-06-09] MEDS: traZODone 50 MG Tablet PO (20:23)
[2021-06-09 21:20] VITALS: BP 120/54; PULSE 102; RESP 18; TEMP 36.6; O2SAT 98
[2021-06-10] MEDS: oxyCODONE 5 MG Tablet PO (01:04)
--- NOTE | 2021-06-10 02:26 | NURSING ---
REVIEWED AND AGREE WITH [employer]'S FUNCTIONAL ASSESSMENT AND HANDOFF CHARTING.
[2021-06-10 07:45] VITALS: BP 105/54; PULSE 67; RESP 12; TEMP 36.5; O2SAT 94
[2021-06-10] MEDS: Venlafaxine XR 150 MG Capsule PO (08:58)
[2021-06-10] MEDS: oxyCODONE HCl Cr 10 MG Tablet 20 MG PO (08:59)
[2021-06-10] MEDS: clonazePAM 1 MG Tablet PO (09:01)
[2021-06-10] MEDS: ALPRAZolam 0.25 MG Tablet PO (12:08)
== END 2021-06-23 12:31 | disposition short-term general hospital (02) | DRG 313 ==
LOC: RU 06-09 14:05 → ACINP 09-04 05:36
PROVIDERS: Admitting Provider Internal Medicine; Visit Provider Internal Medicine
DX: S82.852A Displaced trimalleolar fracture of left lower leg, initial encounter for closed fracture (principal); L89.522 Pressure ulcer of left ankle, stage 2; K76.0 Fatty (change of) liver, not elsewhere classified; E11.9 Type 2 diabetes mellitus without complications; J44.9 Chronic obstructive pulmonary disease, unspecified; F60.3 Borderline personality disorder; E78.5 Hyperlipidemia, unspecified; F17.200 Nicotine dependence, unspecified, uncomplicated; G43.909 Migraine, unspecified, not intractable, without status migrainosus; M19.90 Unspecified osteoarthritis, unspecified site; I10 Essential (primary) hypertension; W10.9XXA Fall (on) (from) unspecified stairs and steps, initial encounter; S52.572A Other intraarticular fracture of lower end of left radius, initial encounter for closed fracture; E55.9 Vitamin D deficiency, unspecified; S52.202A Unspecified fracture of shaft of left ulna, initial encounter for closed fracture; S92.341A Displaced fracture of fourth metatarsal bone, right foot, initial encounter for closed fracture; E66.9 Obesity, unspecified; F41.0 Panic disorder [episodic paroxysmal anxiety]; F43.12 Post-traumatic stress disorder, chronic; F32.A Depression, unspecified; G89.4 Chronic pain syndrome; Z79.899 Other long term (current) drug therapy; Z68.32 Body mass index [BMI] 32.0-32.9, adult; Z86.19 Personal history of other infectious and parasitic diseases; R53.81 Other malaise; Z79.890 Hormone replacement therapy; Y93.9 Activity, unspecified; Y99.9 Unspecified external cause status; Y92.9 Unspecified place or not applicable
CPT/HCPCS: 36415; 73110; 73600; 76000; 80048; 80053; 82962; 83036; 83735; 84100; 85025; 85027; 85610; 85730; 87426; 96365; 96366; 96372; 96375; 97110; 97116; 97162; 97166; 97167; 97530; 97535; 97542; 97760; 97802; 99218; 99251; 99406; C1713; J7120; A4216; G0378; G0463; J2405

== ENCOUNTER 2021-06-10 17:56 | Observation (INO) | payer MEDICAID, SELFPAY ==
[2021-06-08 11:11] LABS: Hemoglobin A1c 6.5 % (3.8-5.6)
[2021-06-10] VITALS (13 sets, daily range): BP systolic 96–129; BP diastolic 53–82; PULSE 63–88; RESP 15–18; TEMP 36.3–37.1; O2SAT 88–99; BMI 32.5
[2021-06-10] MEDS: Lactated Ringers 1,000 ML 15 ML IV ×2 (13:08→15:30)
--- NOTE | 2021-06-10 14:31 | PCM.HP.STD ---
HPI - General HPI Narrative SALAZAR ROTHMAN, is a 61 F who sustained a fall down a flight of stairs approximately 10 days prior to 2020. She presented [facility] with left ankle pain and inability to ambulate, blistering and wounds. She also sustained a left wrist injury at the time of injury. X-rays revealed a fracture dislocation trimalleolar of her left ankle as well as a comminuted intra-articular distal radius fracture. I saw the patient in consultation 05/15/2021. I performed a ankle spanning external fixator with irrigation and debridement of the left ankle on 05/16/2021 in combination with the application of a closed reduction and dorsal spanning left wrist plating. She was subsequently discharged to the rehab unit at [facility]. She was seen by wound care and wounds were improving on her left ankle. We scheduled the patient for definitive fixation of her left ankle with removal of external fixator and open reduction internal fixation of her left trimalleolar ankle fracture on 06/10/2021. She reports pain in her left wrist and left ankle. Otherwise she denies any new complaints. Denies fever, chills, nausea vomiting, chest pain or shortness of breath. [facility] Medical History (Updated 06/08/21 @ 11:09 by Elizabeth Lira) Anemia Borderline personality disorder Brain aneurysm Chronic back pain Chronic post-traumatic stress disorder COPD (chronic obstructive pulmonary disease) Diabetes Dietary restriction Fall Fistula Former smoker Fracture of metatarsal bone of right foot Generalized anxiety disorder with panic attacks History of depression History of edema History of hepatitis B Migraines Osteoarthritis Scaphoid fracture, wrist, closed Tobacco dependence due to cigarettes Vitamin D deficiency Home Medications acetaminophen 1,000 mg PO Q8 05/24/21 [History Last Taken Unknown] alprazolam 0.25 mg PO TID PRN #10 tab 05/24/21 [Rx Last Taken Unknown] bisacodyl 10 mg NH DAILY PRN PRN #0 ea 05/24/21 [Rx Last Taken Unknown] menthol-zinc oxide [Calmoseptine] 1 applic TOPICAL BID 05/24/21 [History Last Taken Unknown] nicotine 21 mg TRANSDERMAL DAILY 05/24/21 [History Last Taken Unknown] sennosides-docusate sodium [Stool Softener-Stimulant Laxat] 2 tab PO BID 05/24/21 [History Last Taken Unknown] alprazolam 0.25 mg PO BID PRN PRN #0 tab 06/09/21 [Rx Last Taken Unknown] cholecalciferol (vitamin D3) 25 mcg PO DAILY #0 tab 06/09/21 [Rx Last Taken Unknown] clonazepam 1 mg PO Q12 #0 tab 06/09/21 [Rx Last Taken 06/10/21] nystatin [Nyamyc] 1 applic TOPICAL BID PRN #0 g 06/09/21 [Rx Last Taken Unknown] oxycodone 5 - 10 mg PO Q6H PRN PRN #0 tab 06/09/21 [Rx Last Taken Unknown] oxycodone [OxyContin] 20 mg PO BID #0 tab 06/09/21 [Rx Last Taken 06/10/21] sennosides-docusate sodium [Stool Softener-Stimulant Laxat] 2 tab PO BID #0 tab 06/09/21 [Rx Last Taken Unknown] trazodone 50 - 100 mg PO QHS #0 tab 06/09/21 [Rx Last Taken Unknown] venlafaxine 150 mg PO DAILY #0 cap 06/09/21 [Rx Last Taken 06/10/21] Allergy/AdvReac Type Severity Reaction Status Date / Time ibuprofen Allergy Rash Verified 05/14/21 19:51 Sulfa (Sulfonamide Allergy Unknown Verified 05/14/21 19:51 Antibiotics) Family History Mother Breast cancer Cancer bone Anxiety and depression Grandmother Breast cancer Hypertension Father Cancer oral Myocardial infarction Alcoholism Daughter Autism Daughter Bipolar 1 disorder Surgical History (Updated 06/08/21 @ 11:09 by Elizabeth Lira) History of History of cholecystectomy History of colonoscopy with polypectomy History of open reduction and internal fixation (ORIF) procedure Status post open reduction and internal fixation (ORIF) of fracture Status post open reduction and internal fixation (ORIF) of fracture Social History Smoking Status: Heavy Smoker (>10/day) Tobacco: How many years used: 40 how long ago did patient quit smokin05/14/21....stopped due to admission to the hospital counseling given: provider counseling alcohol intake: former details: no longer drinks at all. Denies any hx of illicit drug use substance use type: does not use what type of physical activity do you participate in: none ROS ROS Narrative 10 point review of systems obtained, negative less otherwise noted in HPI. Vital Signs Vital Signs Vital Signs: 06/10/21 12:59 06/10/21 13:04 Temperature 98.7 F Temperature Source Temporal Pulse Rate 63 Respiratory Rate 16 Respiratory Pattern Normal Blood Pressure 98/58 L Blood Pressure Mean 71 Blood Pressure Source Monitor Blood Pressure Position Semi-Fowlers Blood Pressure Location Right Arm Pulse Ox 94 Oxygen Delivery Method Room Air Weight Weight: 207 lb 14.334 oz Body Mass Index (BMI) 32.5 Physical Exam Narrative General -A&Ox3, NAD, appears stated age. Vital signs stable, afebrile. Respiratory -normal work of breathing, no intercostal retractions. CV -pulses regular, brisk capillary refill ?4 limbs. Abdomen-soft, nontender, nondistended. No guarding, rigidity, rebound tenderness. Musculoskeletal/neurologic -full range of motion nontender throughout Left wrist-Short arm splint in place, clean dry and intact. Cardinal motions left hand are intact. Brisk capillary refill in the fingertips. Sensation intact throughout. Left ankle-ankle spanning external fixator in place. Pin sites benign. Wiggles toes on command. Skin wrinkling present. Sensation intact throughout. Brisk capillary refill in toes. Assessment & Plan Assessment/Plan (1) Trimalleolar fracture of left ankle: PLAN: Plan to proceed with left ankle removal of external fixator, open reduction internal fixation left ankle trimalleolar fracture dislocation. We discussed the risk, benefits, alternatives to procedure. Risks include but are not limited to bleeding, infection, loss of life or limb, need for additional surgery, persistent pain, nonhealing wounds, nonhealing bone, neurovascular injury, DVT or PE, risk of anesthesia. Patient expressed understanding his risk wish to proceed with surgery. She will be nonweightbearing postoperatively for at least 6 weeks. She expressed understanding of this. Plan for admission for observation overnight for coordination of placement following surgery. Patient has been receiving Lovenox for DVT prophylaxis, last dose was yesterday.
[2021-06-10] MEDS: Cefazolin 2 GM in 0.9% Normal Saline 100 ML IV (15:13)
--- NOTE | 2021-06-10 15:25 | RAD_ITS ---
STUDY: INTRAOPERATIVE FLUOROSCOPY TECHNIQUE: The examination was performed with referring physician in attendance. Under fluoroscopic observation, fluoroscopic images were obtained. Radiologist was not present for the study. Radiologist did not perform the procedure. This dictation is for documentation of the radiation dosage only. There is no interpretation of the images. TOTAL NUMBER OF IMAGES: 4 COMPARISON: 12.30.21 RADIATION DOSE: 1.8 mGy FLUOROSCOPY TIME: 73 seconds REASON FOR EXAM: FX Female, 61 years old. FINDINGS: There is a metal sideplate transfixing the distal tibia and fibula. There are cortical screws holding the plate in place. RAD/Ankle 2 Views IMPRESSION: Fluoroscopic assistance images were obtained. Dictation for documentation purposes only. Electronically Signed: Gómez Kiran MD at 17:14 EST , Service support ,
[2021-06-10] MEDS: Bupivacaine Mpf 0.5% 30 ML VIAL (16:50)
[2021-06-10] MEDS: Mupirocin Ointment 22gm Tube 1 APPLIC (16:54)
--- NOTE | 2021-06-10 17:39 | OP.PCM_ITS ---
Report of Operation Date of Procedure: 06/10/21 Description of Surgical Findings:: Preoperative diagnosis: Left trimalleolar ankle fracture dislocation Postoperative diagnosis: Left trimalleolar ankle fracture dislocation Procedure: 1. Removal of left ankle spanning external fixator 2. Open reduction internal fixation left ankle posterior and lateral malleoli fractures Surgeon: Den Mike DO Water Project Engineer: FARIBA Camacho Anesthesia: General endotracheal Anesthesiologist: Dr. Butt Complications: None Drains: None Estimated blood loss: 50 cc Urinary output: None recorded IV fluids: Per anesthesia record Specimens: None Surgical implants: Sendia 5 hole 3.5 mm posterior tibial plate, 7 hole one third tubular plate Surgical indications: This is a 61-year-old female who had delayed care for a left ankle trimalleolar fracture dislocation. The injury was sustained in mid April 2021. She did not present to the emergency department until 05/14/2021 due to fear of hospitals. She had extensive fracture blisters and a large anterior medial wound of her ankle. I saw the patient in consultation on 05/15/2021. I performed a left ankle joint spanning external fixator with wound debridement on 05/16/2021. She has done well in the rehab setting. Of note she also had a comminuted intra- articular left distal radius fracture which was treated with a dorsal spanning plate at the same time as the index procedure. Her wounds healed well except for a anterior medial wound that has persisted. I recommended operative intervention to more closely stabilize her periarticular structures with open reduction internal fixation of her left ankle. The risks, benefits, alternatives to the procedure reviewed with patient at length and she agreed to proceed. Description of procedure: Patient was seen in preoperative holding area. She was identified by name, medical record number, date of . The operative extremity was marked with a surgical marker. We confirmed informed consent with the patient and all questions were answered to her satisfaction. At time of her procedure, patient was brought to the operative suite and positioned supine on a standard operating table. All bony prominences were well-padded. General anesthesia was administered. After adequate anesthesia, a well-padded pneumatic tourniquet was applied to the right upper thigh. We then performed a timeout with all parties in attendance and agree with the side, site, operation to be performed. No concerns were voiced and elected to proceed. 2 g Ancef was administered prior to incision by the anesthesia staff. Patient asked that I would remove her splint to her left wrist, remove her sutures, and apply wrist brace if able while under anesthesia. While the patient was being prepped for anesthesia, was able to successfully remove the stitches from her dorsal wrist. The wound is healing well without erythema or drainage. A Velcro prefabricated wrist brace was then applied after applying a Kerlix dressing. Betadine was used to prep the pin sites prior to external fixator removal. Using the vendor supplied external fixator removal kit, we removed the bars and subsequently the interosseous pins. The calcaneus transfixion pin was cut as low as possible to the skin on the medial side and removed from the lateral pin site. Pin sites were unremarkable. We then positioned the patient in the prone position with all bony prominences being well-padded. We then prepped and draped the operative extremity in normal, sterile orthopedic fashion utilizing a Betadine prep. I first exsanguinated the operative extremity with an Esmarch bandage. Tourniquet was inflated to 280 mmHg. I planned a standard posterior lateral approach to the ankle midway between the posterior medial border of the fibula and the Achilles tendon. Skin was sharply incised with a 15 blade scalpel. I then switched to blunt dissection with Metzenbaum scissors where the sural nerve and accompanying blood vessels were identified. These were dissected free and retracted laterally. I then encountered the fascia of the deep posterior compartment which was split in line with the incision. The FHL muscle belly was elevated free off the posterior malleolus. There was significant comminution of the posterior malleolus. I had difficulty reducing this after thoroughly debriding early callus. I then turned my attention to the fibula in hopes to regain length more appropriately and more easily reduce the posterior malleolus. I developed the plane between the peroneal musculatures. Periosteum was stripped from the fracture site. Early callus was debrided. I thoroughly irrigated the wound. There was significant comminution and bone loss laterally, otherwise I was able to reasonably reproduce the cortical landmarks of the fibula. I selected a one third tubular plate placed along the posterior cortex. I secured this to bone with cortical screws proximal and distal to the fracture site. This helped to reduce the fibula as well. I then turned my attention back to the posterior malleolus which was nearly anatomically reduced. I attempted a posterior to anterior lag screw utilizing a 3.5 mm cortical screw. This did not capture the posterior lateral avulsion fracture of the posterior malleolus, which was likely a comminuted piece. Like she did achieve some compression across it which was aided by a washer. I selected a posterior tibial locking plate to better capture the posterior lateral avulsion fragment. This was achieved by placing the plate along the anatomic contour of the posterior malleolus. I utilized the plate in antiglide fashion which successfully compress across the avulsion fracture. I secured this with additional cortical screws proximal and a locking screw into the avulsion fragment. Of note, there was a transverse medial malleolus fracture which appeared acceptably aligned. Given her skin over the medial malleolus and a chronic wound, I felt the safest course of action was to treat the medial malleolus fragment nonoperatively. I then performed an external rotation stress exam of the ankle on fluoroscopy and it appeared stable. Due to the degree of bony loss of the fibula, 1 cc of demineralized bone matrix was injected into the bony void. I then deflated the tourniquet. Hemostasis was successfully achieved with Bovie cautery. Wound was thoroughly irrigated with normal saline. I performed a field block and intra-articular block with 30 cc total 0.5% plain bupivacaine. I then reapproximated the dermis with buried 2-0 Vicryl suture. 3-0 nylon suture in horizontal mattress fashion were used to reapproximate the skin. Sterile compression dressing was applied. Pin sites were curetted and Bactroban applied. I placed a Xeroform over the anterior medial wound as well. A bulky well-padded posterior splint was applied. Patient was then repositioned in the supine position and safely extubated in the operative suite. She was transferred to her hospital bed and subsequent to PACU in stable condition. Post Operative Plan: Weightbearing: Nonweightbearing operative extremity Antibiotics: Ancef 1 g x 23 hours DVT Prophylaxis: Lovenox 40 mg to restart tomorrow Dressing: Maintain splint, keep it clean dry and intact until follow-up X-Rays: 2 weeks postop in the office Follow-up: 2 weeks post-operatively with me in the office
--- NOTE | 2021-06-10 18:06 | SUR.PHASEI ---
PT PLACED ON 2L NC DUE TO O2 SAT ON RA 88% AFTER MORPHINE. WILL CONTINUE TO MONITOR.
[2021-06-10] MEDS: Acetaminophen 500 MG Tablet 1000 MG PO (20:35)
[2021-06-10] MEDS: traZODone 50 MG Tablet PO (20:35)
[2021-06-10] MEDS: Senna/Docusate Sodium 1 Tablet 2 TABLET PO (20:36)
[2021-06-10] MEDS: clonazePAM 1 MG Tablet PO (20:36)
[2021-06-10] MEDS: oxyCODONE HCl Cr 10 MG Tablet 20 MG PO (20:36)
[2021-06-10] MEDS: Pregabalin 75 MG Capsule PO (20:36)
[2021-06-10] MEDS: Ondansetron 4 MG/2 ML Vial IV (20:37)
[2021-06-10] MEDS: Cefazolin 1 GM/50 ML BAG IV (23:24)
[2021-06-11] VITALS (9 sets, daily range): BP systolic 84–108; BP diastolic 44–70; PULSE 74–89; RESP 14–18; TEMP 36.6–37.2; O2SAT 83–98
[2021-06-11] MEDS: oxyCODONE 5 MG Tablet 10 MG PO ×5 (03:06→23:42)
[2021-06-11] MEDS: Acetaminophen 500 MG Tablet 1000 MG PO ×3 (06:23→20:55)
[2021-06-11] MEDS: Enoxaparin 40 MG/0.4 ML Syringe SC (06:23)
[2021-06-11] MEDS: Cefazolin 1 GM/50 ML BAG IV (06:23)
--- NOTE | 2021-06-11 07:46 | PCM.PN.ORT ---
Subjective Subjective Patient resting comfortably this morning. She states her pain is reasonably well controlled at this time. Denies any new complaints including fevers, chills, chest pain or shortness of breath. She reported some brief nausea which is since resolved, no vomiting. Denies any numbness or tingling in the left ankle. Objective Data Objective Data Vital Signs: Vital Signs Temp Pulse Resp BP Pulse Ox 98.5 F 89 16 98/54 L 98 06/11/21 03:00 06/11/21 03:00 06/11/21 03:00 06/11/21 03:00 06/11/21 03:00 Oxygen Flow Rate (L/min) 2 Oxygen Delivery Method Nasal Cannula Weight: 207 lb 10.807 oz Body Mass Index (BMI) 32.5 Intake & Output: Intake and Output for Last 24 Hours 06/09/21 06/10/21 06/11/21 23:59 23:59 23:59 Intake Total 1160 / 1160 170 / 170 Output Total 800 / 800 Balance 1160 / 1160 -630 / -630 Radiography Diagnostic Testing: Radiology Impression Ankle X-Ray 06/10/21 15:25 IMPRESSION: Fluoroscopic assistance images were obtained. Dictation for documentation purposes only. Electronically Signed: Gómez Kiran MD at 17:14 EST , Service support , Physical Exam Narrative General - A&Ox3, NAD. VSS/AF Left lower extremity -splint/incisional dressing C/D/I. SILT in exposed toes. BCR. Wiggles toes on command. No pain with passive stretch of the toes. Assessment & Plan Assessment/Plan (1) Trimalleolar fracture of left ankle: PLAN: POD#1 s/p left ankle removal of external fixator and ORIF - Pain control - PT/OT -nonweightbearing left lower extremity, nonweightbearing through left wrist. Okay to weight-bear through left elbow. - DVT PPX -Lovenox 40 mg - Case management - D/C planning. Patient requesting return to rehab where she has been the last several weeks. Stable for discharge from my standpoint today if approved.
--- NOTE | 2021-06-11 10:19 | CASEMGMT ---
SOFIA DESOUZA NOTE: To room to talk w/pt. Introduced self and role. Pt was on [facility] prior to surgery and states she wishes to return to [facility]. SW, Jaz, aware. Pt made aware prior-auth from insurance will need to be obtained. She denies having any other needs or concerns at this time. Message received that pt's would like return call. SOFIA DESOUZA placed call to , Betito. He is aware pt is on [facility] and notified of above discharge plan as noted above. He voices appreciation of call and denies having further questions and denies concerns. Jones CARDONAN CM
[2021-06-11] MEDS: Pregabalin 75 MG Capsule PO (10:28)
[2021-06-11] MEDS: oxyCODONE HCl Cr 10 MG Tablet 20 MG PO ×2 (10:28→20:52)
[2021-06-11] MEDS: Senna/Docusate Sodium 1 Tablet 2 TABLET PO ×2 (10:29→23:44)
[2021-06-11] MEDS: Venlafaxine XR 150 MG Capsule PO (10:29)
[2021-06-11] MEDS: clonazePAM 1 MG Tablet PO ×2 (10:29→20:53)
--- NOTE | 2021-06-11 11:22 | CASEMGMT ---
Social Work SW recevied referral from RNCM that pt is from [facility] Inpatient Rehab and would like to return, pt is in agreement with this. ROSALIND spoke with Soraya in [facility] and Soraya confirms pt can return to [facility]. Insurance precert will need obtained and precert to be started this morning. Green sheet placed on pt chart in the event precert is obtained over the weekend. Plan: Inpatient Rehab unit, pending precert ANDREZ Moses
[2021-06-11] MEDS: traZODone 50 MG Tablet PO (20:53)
[2021-06-11] MEDS: ALPRAZolam 0.25 MG Tablet PO (23:42)
[2021-06-12 02:20] VITALS: BP 115/68; PULSE 77; RESP 17; TEMP 36.6; O2SAT 97
[2021-06-12] MEDS: Acetaminophen 500 MG Tablet 1000 MG PO ×3 (04:32→21:29)
[2021-06-12] MEDS: Enoxaparin 40 MG/0.4 ML Syringe SC (04:32)
[2021-06-12] MEDS: ALPRAZolam 0.25 MG Tablet PO ×2 (04:37→18:08)
[2021-06-12] MEDS: oxyCODONE 5 MG Tablet 10 MG PO ×3 (04:37→18:08)
[2021-06-12 07:00] VITALS: BP 82/46; PULSE 60; RESP 18; TEMP 36.9; O2SAT 97
[2021-06-12 09:00] VITALS: BP 84/48; PULSE 72; RESP 18; TEMP 37; O2SAT 96
[2021-06-12] MEDS: clonazePAM 1 MG Tablet PO ×2 (09:21→21:28)
[2021-06-12] MEDS: Venlafaxine XR 150 MG Capsule PO (09:21)
[2021-06-12] MEDS: oxyCODONE HCl Cr 10 MG Tablet 20 MG PO ×2 (09:21→21:28)
[2021-06-12] MEDS: Senna/Docusate Sodium 1 Tablet 2 TABLET PO ×2 (09:22→21:29)
[2021-06-12 11:24] VITALS: BP 91/49; PULSE 72; RESP 16; TEMP 36.9; O2SAT 97
--- NOTE | 2021-06-12 17:05 | PCM.PN.ORT ---
Subjective Subjective Patient seen and examined at bedside. Denies any new complaints. Denies fevers, chills, nausea vomiting, chest pain or shortness of breath. Objective Data Objective Data Vital Signs: Vital Signs Temp Pulse Resp BP Pulse Ox 98.4 F 72 16 91/49 L 97 06/12/21 11:24 06/12/21 11:24 06/12/21 11:24 06/12/21 11:24 06/12/21 11:24 Oxygen Flow Rate (L/min) 2 Oxygen Delivery Method Nasal Cannula Weight: 207 lb 10.807 oz Body Mass Index (BMI) 32.5 Intake & Output: Intake and Output for Last 24 Hours 06/10/21 06/11/21 06/12/21 23:59 23:59 23:59 Intake Total 1160 / 1160 950 / 950 Output Total 1250 / 1250 1050 / 1050 Balance 1160 / 1160 -300 / -300 -1050 / -1050 Physical Exam Narrative General - A&Ox3, NAD. VSS/AF Left lower extremity -splint/incisional dressing C/D/I. SILT in exposed toes. BCR. Wiggles toes on command. No pain with passive stretch of the toes. Assessment & Plan Assessment/Plan (1) Trimalleolar fracture of left ankle: PLAN: POD#1 s/p left ankle removal of external fixator and ORIF - Pain control - PT/OT -nonweightbearing left lower extremity, nonweightbearing through left wrist. Okay to weight-bear through left elbow. - DVT PPX -Lovenox 40 mg - Case management - D/C planning. Patient requesting return to rehab where she has been the last several weeks. Stable for discharge from my standpoint when pre-CERT obtained. Pre-CERT pending.
[2021-06-12] MEDS: traZODone 50 MG Tablet PO (21:28)
[2021-06-12] MEDS: 0.9% Saline Lock 10 ML Syringe IV (21:30)
[2021-06-12 21:39] VITALS: BP 122/78; PULSE 71; RESP 17; TEMP 36.8; O2SAT 98
[2021-06-13] MEDS: oxyCODONE 5 MG Tablet 10 MG PO ×5 (00:05→22:57)
[2021-06-13] MEDS: ALPRAZolam 0.25 MG Tablet PO ×3 (00:05→20:31)
[2021-06-13 01:36] VITALS: BP 126/82; PULSE 78; RESP 15; TEMP 36; O2SAT 96
[2021-06-13] MEDS: Acetaminophen 500 MG Tablet 1000 MG PO ×3 (05:13→20:31)
[2021-06-13] MEDS: Enoxaparin 40 MG/0.4 ML Syringe SC (05:13)
[2021-06-13 08:05] VITALS: BP 92/55; PULSE 59; RESP 16; TEMP 36.7; O2SAT 92
[2021-06-13] MEDS: clonazePAM 1 MG Tablet PO ×2 (09:34→20:30)
[2021-06-13] MEDS: Venlafaxine XR 150 MG Capsule PO (09:34)
[2021-06-13] MEDS: oxyCODONE HCl Cr 10 MG Tablet 20 MG PO ×2 (09:34→20:31)
[2021-06-13] MEDS: Senna/Docusate Sodium 1 Tablet 2 TABLET PO ×2 (09:35→20:32)
[2021-06-13 14:26] VITALS: BP 103/46; PULSE 70; RESP 18; TEMP 36.5; O2SAT 92
--- NOTE | 2021-06-13 15:51 | PCM.PN.ORT ---
Subjective Subjective Patient seen and examined. Denies any new complaints. States she has significant pain not controlled with current pain regimen. Denies fevers, chills, nausea or vomiting, chest pain or shortness of breath. Objective Data Objective Data Vital Signs: Vital Signs Temp Pulse Resp BP Pulse Ox 97.7 F L 70 18 103/46 L 92 06/13/21 14:26 06/13/21 14:26 06/13/21 14:26 06/13/21 14:26 06/13/21 14:26 Oxygen Flow Rate (L/min) 2 Oxygen Delivery Method Room Air Weight: 207 lb 10.807 oz Body Mass Index (BMI) 32.5 Intake & Output: Intake and Output for Last 24 Hours 06/11/21 06/12/21 06/13/21 23:59 23:59 23:59 Intake Total 950 / 950 1050 / 1050 Output Total 1250 / 1250 1050 / 1050 1450 / 1450 Balance -300 / -300 -1050 / -1050 -400 / -400 Physical Exam Narrative General - A&Ox3, NAD. VSS/AF Left lower extremity -splint/incisional dressing C/D/I. SILT in exposed toes. BCR. Wiggles toes on command. No pain with passive stretch of the toes. Assessment & Plan Assessment/Plan (1) Trimalleolar fracture of left ankle: PLAN: POD#3 s/p left ankle removal of external fixator and ORIF - Pain control -adding scheduled tramadol - PT/OT -nonweightbearing left lower extremity, nonweightbearing through left wrist. Okay to weight-bear through left elbow. - DVT PPX -Lovenox 40 mg -Okay to remove left wrist splint for hygiene only, dry sterile dressing changes daily. No active or passive motion of the wrist. - Case management - D/C planning. Patient requesting return to rehab where she has been the last several weeks. Stable for discharge from my standpoint when pre-CERT obtained. Pre-CERT pending.
[2021-06-13] MEDS: traMADol 50 MG Tablet PO (17:32)
[2021-06-13 20:26] VITALS: BP 115/82; PULSE 85; RESP 16; TEMP 35.8; O2SAT 98
[2021-06-13] MEDS: traZODone 50 MG Tablet PO (20:31)
--- NOTE | 2021-06-14 00:06 | NURSING ---
Patient refusing to take the prescribed Tramadol. States that she would rather have the oxy as the Tramadol gives her increased anxiety.
[2021-06-14 03:00] VITALS: BP 126/89; PULSE 77; RESP 17; TEMP 36.6; O2SAT 97
[2021-06-14] MEDS: oxyCODONE 5 MG Tablet 10 MG PO ×4 (03:01→18:05)
[2021-06-14] MEDS: Enoxaparin 40 MG/0.4 ML Syringe SC (05:29)
[2021-06-14] MEDS: Acetaminophen 500 MG Tablet 1000 MG PO ×2 (05:29→13:05)
[2021-06-14 08:02] VITALS: PULSE 60; RESP 16; TEMP 36.8; O2SAT 94
[2021-06-14] MEDS: ALPRAZolam 0.25 MG Tablet PO ×2 (08:09→14:08)
--- NOTE | 2021-06-14 08:50 | CASEMGMT ---
Social Work SW left message for Soraya in rehab inquiring about the precert. CINDY Cornejo
[2021-06-14] MEDS: clonazePAM 1 MG Tablet PO (10:13)
[2021-06-14] MEDS: oxyCODONE HCl Cr 10 MG Tablet 20 MG PO (10:13)
[2021-06-14] MEDS: Senna/Docusate Sodium 1 Tablet 2 TABLET PO (10:13)
[2021-06-14] MEDS: Venlafaxine XR 150 MG Capsule PO (10:23)
[2021-06-14] MEDS: Lactated Ringers 1,000 ML 15 ML IV (13:06)
--- NOTE | 2021-06-14 13:33 | CASEMGMT ---
Addendum entered by Anna Marie Bustos 06/14/21 14:09: Social Work SW spoke w/ROSALIND Mauro in rehab. She states she had already been in touch w/[employer] about pt's equipment and they have everything ready for delivery once pt is ready to leave rehab. SW let pt know, pt states understanding. SW will continue to follow. CINDY Cornejo Original Note: Social Work SW spoke w/pt in room, let her know that we are still waiting to hear back from insurance on pt getting authorized to return to rehab. Pt asked SW about getting DME and home health ordered. She states she was supposed to get some equipment ordered, but then pt ended up having surgery again and ended up back in the hospital. Pt inquired how long she would need to be in rehab, and bout getting the equipment and home health ordered. SW explained that it will be decided as a team how long pt will need to be back in rehab, and also insurance will say how long pt will be authorized. SW explained that the DME and home health won't be ordered until close to discharge time. SW explained insurance won't cover for equipment to sit at home if a pt is in a facility. SW explained the SW in rehab will assist with this. Pt asked SW if she would speak to pt's as well, and she called him. SW explained the above information to him as well. He states he has been trying to reach [facility] and can't get through to anyone. He states no equipment has yet been delivered. SW let know that they will need to wait to have equipment delivered to closer to when pt is leaving rehab. states does plan to buy some of the equipment himself. SW explained he can do that ahead of time, and again let him know the SW in rehab can help. SW did leave a message for Zunilda in rehab to call this SW, so SW can update her on pt and 's concerns around getting DME ordered. SW will continue to follow, plan continues to be for pt to go to rehab once precert is attained. CINDY Cornejo
[2021-06-14 14:00] VITALS: BP 100/57; PULSE 64; RESP 18; TEMP 36.9; O2SAT 94
--- NOTE | 2021-06-14 15:01 | CASEMGMT ---
Addendum entered by Anna Marie Bustos 06/14/21 16:07: Physician will be here after office hours to discharge pt. SW let RN know. Green sheet is on the chart. CINDY Cornejo Addendum entered by Anna Marie Bustos 06/14/21 15:26: Social Work SW let pt know she was approved by insurance and can go to rehab today. CINDY Cornejo Original Note: Social Work SW spoke w/Soraya in rehab, she has precert for pt to return to rehab today. SW texted Dr. Mike and also reached out to him through [employer] to let him know. CINDY Cornejo
--- NOTE | 2021-06-14 17:37 | PCM.TXEXTCAR ---
Diet 06/11/21 13:26 Diet: Regular - General Is pt able to select menu?: Yes Wound(s) left ankle: Wound Type: Surgical Incision Left Wrist: Wound Type: Surgical Incision Therapies Weight Bearing: Non weight bearing Problem/Diagnosis (1) Trimalleolar fracture of left ankle: Status: Acute Allergies/Procedures Done in Hospital Allergies ibuprofen Allergy (Verified 05/14/21 19:51) Rash Sulfa (Sulfonamide Antibiotics) Allergy (Verified 05/14/21 19:51) Unknown Type of Care/Length of Stay Estimated LOS: Convalescent Care Less Than 30 days Type of Care Needed: Acute Rehab Rehab Potential: Good Prognosis: Good Additional Orders/Day of Discharge Day of Discharge: 06/14/21 Discharge Plan Admission Admit Date/Time: 06/10/21 17:56 Primary Reason for Your Visit: Left ankle fracture fixation Attending Provider: Den Mike Primary Care Provider: Care Physician,No Primary Instructions Additional Instructions / Restrictions: Nonweightbearing left lower extremity. Maintain splint. Keep it clean, dry, and intact. Left wrist-okay to remove brace for hygiene. Dry sterile dressing changes daily. Okay to cleanse with soap and water. Discharge Orders/Prescriptions Prescriptions: Continued bisacodyl 10 mg Suppository 10 mg DC DAILY PRN PRN (Reason: CONSTIPATION) Qty: 0 RF: 0 alprazolam 0.25 mg tablet 0.25 mg PO TID PRN (Reason: anxiety) Qty: 10 RF: 0 sennosides-docusate sodium [Stool Softener-Stimulant Laxat] 8.6-50 mg tablet 2 tab PO BID RF: 0 acetaminophen 500 mg tablet 1,000 mg PO Q8 RF: 0 nicotine 21 mg/24 hr patch 24 hour 21 mg transdermal DAILY RF: 0 menthol-zinc oxide [Calmoseptine] 0.44-20.6 % ointment 1 applic topical BID RF: 0 trazodone 50 mg Tablet 50 - 100 mg PO QHS Qty: 0 RF: 0 sennosides-docusate sodium [Stool Softener-Stimulant Laxat] 8.6-50 mg Tablet 2 tab PO BID Qty: 0 RF: 0 clonazepam 1 mg Tablet 1 mg PO Q12 Qty: 0 RF: 0 venlafaxine 150 mg Capsule,Extended Release 24hr 150 mg PO DAILY Qty: 0 RF: 0 alprazolam 0.25 mg Tablet 0.25 mg PO BID PRN PRN (Reason: panic attack) Qty: 0 RF: 0 oxycodone 5 mg Tablet 5 - 10 mg PO Q6H PRN PRN (Reason: Pain Score 4-10) Qty: 0 RF: 0 cholecalciferol (vitamin D3) 25 mcg (1,000 unit) Tablet 25 mcg PO DAILY Qty: 0 RF: 0 oxycodone [OxyContin] 10 mg Tablet,Oral Only,Ext.Rel.12 Hr 20 mg PO BID Qty: 0 RF: 0 nystatin [Nyamyc] 100,000 unit/gram powder 1 applic topical BID PRN (Reason: rash in intertrigenous area) Qty: 0 RF: 0 Other Ambulatory Orders: Liver Profile (Routine) Timeframe: [id number] Facility: [facility] - Location: Laboratory Ordered By: Dr. Gio Butt Referrals / Follow Up: Den Mike DO [STAFF PHYSICIAN] - Within 2 Weeks Care Physician,No Primary [Primary Care Provider] - Disposition Disposition (needs filled in before D/C Order can be placed): Acute Care Hospital [facility]
--- NOTE | 2021-06-14 17:42 | DS.PCM_ITS ---
Providers Date of Admission: 06/10/21 Primary Care Physician: No Primary Care Phys Diagnosis Discharge Diagnosis (1) Trimalleolar fracture of left ankle: Status: Acute Code(s): S82.852A - Displaced trimalleolar fracture of left lower leg, initial encounter for closed fracture Plan: POD#4 s/p left ankle removal of external fixator and ORIF - Pain control -adding scheduled tramadol - PT/OT -nonweightbearing left lower extremity, nonweightbearing through left wrist. Okay to weight-bear through left elbow. - DVT PPX -Lovenox 40 mg - Okay to remove left wrist splint for hygiene only, dry sterile dressing changes daily. No active or passive motion of the wrist. -Plan for discharge to acute rehab today. Medications at Discharge Home Medications acetaminophen 1,000 mg PO Q8 05/24/21 alprazolam 0.25 mg PO TID PRN #10 tab 05/24/21 bisacodyl 10 mg ME DAILY PRN PRN #0 ea 05/24/21 menthol-zinc oxide [Calmoseptine] 1 applic TOPICAL BID 05/24/21 nicotine 21 mg TRANSDERMAL DAILY 05/24/21 sennosides-docusate sodium [Stool Softener-Stimulant Laxat] 2 tab PO BID 05/24/21 alprazolam 0.25 mg PO BID PRN PRN #0 tab 06/09/21 nystatin [Nyamyc] 1 applic TOPICAL BID PRN #0 g 06/09/21 oxycodone 5 - 10 mg PO Q6H PRN PRN #0 tab 06/09/21 sennosides-docusate sodium [Stool Softener-Stimulant Laxat] 2 tab PO BID #0 tab 06/09/21 cholecalciferol (vitamin D3) 25 mcg PO DAILY 06/14/21 clonazepam 1 mg PO Q12 06/14/21 oxycodone [OxyContin] 20 mg PO BID 06/14/21 trazodone 50 - 100 mg PO QHS 06/14/21 venlafaxine 150 mg PO DAILY 06/14/21 Hospital Course Summary of Care Provided Minutes Spent on Discharge: 20 Hospital Course: Patient underwent uncomplicated left ankle open reduction internal fixation with removal of external fixator. She was admitted postoperatively for placement back to acute rehab. Precertification was prolonged, but eventually obtained on postoperative day #4. She encountered no surgical or medical complications throughout her stay. She was discharged to acute rehab on postoperative day #4. Physical Exam Narrative General - A&Ox3, NAD. VSS/AF Left lower extremity -splint/incisional dressing C/D/I. SILT in exposed toes. BCR. Wiggles toes on command. No pain with passive stretch of the toes. Weight / BMI Weight Weight: 207 lb 10.807 oz Body Mass Index (BMI) 32.5 Meaningful Use Info Meaningful Use Diagnoses (Choose all that apply): None applicable Discharge Plan Admission Admit Date/Time: 06/10/21 17:56 Primary Reason for Your Visit: Left ankle fracture fixation Attending Provider: Den Mike Primary Care Provider: Care Physician,No Primary Instructions Additional Instructions / Restrictions: Nonweightbearing left lower extremity. Maintain splint. Keep it clean, dry, and intact. Left wrist-okay to remove brace for hygiene. Dry sterile dressing changes daily. Okay to cleanse with soap and water. Discharge Orders/Prescriptions Prescriptions: Continued bisacodyl 10 mg Suppository 10 mg ME DAILY PRN PRN (Reason: CONSTIPATION) Qty: 0 RF: 0 alprazolam 0.25 mg tablet 0.25 mg PO TID PRN (Reason: anxiety) Qty: 10 RF: 0 sennosides-docusate sodium [Stool Softener-Stimulant Laxat] 8.6-50 mg tablet 2 tab PO BID RF: 0 acetaminophen 500 mg tablet 1,000 mg PO Q8 RF: 0 nicotine 21 mg/24 hr patch 24 hour 21 mg transdermal DAILY RF: 0 menthol-zinc oxide [Calmoseptine] 0.44-20.6 % ointment 1 applic topical BID RF: 0 sennosides-docusate sodium [Stool Softener-Stimulant Laxat] 8.6-50 mg Tablet 2 tab PO BID Qty: 0 RF: 0 alprazolam 0.25 mg Tablet 0.25 mg PO BID PRN PRN (Reason: panic attack) Qty: 0 RF: 0 oxycodone 5 mg Tablet 5 - 10 mg PO Q6H PRN PRN (Reason: Pain Score 4-10) Qty: 0 RF: 0 nystatin [Nyamyc] 100,000 unit/gram powder 1 applic topical BID PRN (Reason: rash in intertrigenous area) Qty: 0 RF: 0 No Action trazodone 50 mg tablet 50 - 100 mg PO QHS RF: 0 clonazepam 1 mg tablet 1 mg PO Q12 RF: 0 venlafaxine 150 mg capsule,extended release 24hr 150 mg PO DAILY RF: 0 cholecalciferol (vitamin D3) 25 mcg (1,000 unit) tablet 25 mcg PO DAILY RF: 0 oxycodone [OxyContin] 10 mg tablet,oral only,ext.rel.12 hr 20 mg PO BID RF: 0 Other Ambulatory Orders: Liver Profile (Routine) Timeframe: [id number] Facility: [facility] - Location: Laboratory Ordered By: Dr. Gio Butt Referrals / Follow Up: Den Mike DO [STAFF PHYSICIAN] - Within 2 Weeks Care Physician,No Primary [Primary Care Provider] - Disposition Disposition (needs filled in before D/C Order can be placed): Acute Care Hospital [facility]
== END 2021-06-14 19:00 ==
LOC: SDC 18:28 → MS2 18:28
PROVIDERS: Anesthesiology; Admitting Provider Student in an Organized Health Care Education/Training Program; Referring Provider Student in an Organized Health Care Education/Training Program; Visit Provider Student in an Organized Health Care Education/Training Program
PROC: (CPT 27822; principal; 2021-06-10 13:25)
DX: S82.852A Displaced trimalleolar fracture of left lower leg, initial encounter for closed fracture (principal); J44.9 Chronic obstructive pulmonary disease, unspecified; F60.3 Borderline personality disorder; E11.9 Type 2 diabetes mellitus without complications; F43.12 Post-traumatic stress disorder, chronic; F41.0 Panic disorder [episodic paroxysmal anxiety]; G89.29 Other chronic pain; M54.9 Dorsalgia, unspecified; S52.572A Other intraarticular fracture of lower end of left radius, initial encounter for closed fracture; W10.9XXA Fall (on) (from) unspecified stairs and steps, initial encounter; Y93.9 Activity, unspecified; Y99.9 Unspecified external cause status; Y92.9 Unspecified place or not applicable; Z87.891 Personal history of nicotine dependence; Z79.899 Other long term (current) drug therapy; M19.90 Unspecified osteoarthritis, unspecified site; E55.9 Vitamin D deficiency, unspecified
CPT/HCPCS: 27822; 20694; 73600; 76000; 83036; 96365; 96366; 96372; 96375; 97110; 97162; 97167; 97530; 97535; 99218; 99251; C1713; J7120; A4216; G0378; G0463; J2405

== ENCOUNTER 2021-06-14 19:21 | Inpatient (IN) | payer MEDICAID, SELFPAY ==
[2021-06-14 19:53] VITALS: BMI 32.5
[2021-06-14 19:55] VITALS: BP 98/56; PULSE 76; RESP 16; TEMP 36.6; O2SAT 95
[2021-06-14] MEDS: Nystatin Powder 15gm Bottle 1 APPLIC TOPICAL (21:50)
[2021-06-14] MEDS: traZODone 50 MG Tablet PO (21:50)
[2021-06-14] MEDS: Acetaminophen 500 MG Tablet 1000 MG PO (21:51)
[2021-06-14] MEDS: oxyCODONE HCl Cr 10 MG Tablet 20 MG PO (21:51)
[2021-06-14] MEDS: Senna/Docusate Sodium 1 Tablet 2 TABLET PO (21:51)
[2021-06-14 22:00] VITALS: BP 99/52; PULSE 79; RESP 16; TEMP 36; O2SAT 95; O2SAT 96
[2021-06-14] MEDS: clonazePAM 1 MG Tablet PO (22:01)
[2021-06-15] MEDS: oxyCODONE 5 MG Tablet PO ×4 (01:18→23:24)
[2021-06-15] MEDS: ALPRAZolam 0.25 MG Tablet PO ×2 (01:21→21:52)
[2021-06-15 02:46] LABS: Hematocrit 37.6 % (37-47); Hemoglobin 11.8 g/dL (12.0-15.0); Mean Corp Hgb Conc 31.4 g/dL (32-36); Mean Corpuscular Hgb 27.2 pg (27.0-32.0); Mean Corpuscular Volume 86.6 fL (81-99); Platelet Count 368 K/mm3 (150-450); RBC Distribution Width CV 12.6 % (11.6-14.6); RBC Distribution Width SD 40.4 fl (35.1-43.9); Red Blood Count 4.34 M/mm3 (4.2-5.4)
[2021-06-15 03:04] LABS: ALB/GLOB Ratio 0.7 RATIO (0.9-2.4); AST(SGOT) 11 U/L (15-37); Alanine Aminotransfer ALT/SGPT 23 U/L (13-56); Albumin, Serum 2.9 g/dL (3.2-5.0); Alkaline Phosphatase 93 U/L (45-117); Anion Gap 7 (5-15); BUN 19 mg/dL (7-18); BUN/Creat Ratio 23.7 RATIO (10-20); Calcium,Total 9.3 mg/dL (8.5-10.1); Chloride 103 mmol/L (98-107); EST Glomerular Filtration Rate 77 mL/min (>60); Est Glom Filt Rate - Afr Amer 94 mL/min (>60); Estimated Creatinine Clearance 69.13 ml/min; Globulin 3.9 g/dL (2.2-4.2); Glucose 110 mg/dL (74-106); Magnesium 2.3 mg/dL (1.6-2.6); Phosphorus 4.1 mg/dL (2.5-4.9); Potassium 3.8 mmol/L (3.5-5.1); Protein, Total 6.8 g/dL (6.4-8.2); Sodium Level 142 mmol/L (136-145)
[2021-06-15] MEDS: Enoxaparin 40 MG/0.4 ML Syringe SC (06:17)
[2021-06-15] MEDS: Acetaminophen 500 MG Tablet 1000 MG PO ×3 (06:17→21:18)
--- NOTE | 2021-06-15 06:24 | NURSING ---
pt refused a.m. ADLs at this time. Pt c/o pain and jermaine meds provided.
[2021-06-15 07:22] VITALS: O2SAT 94
[2021-06-15 08:30] VITALS: BP 97/42; PULSE 61; RESP 16; TEMP 36; O2SAT 94
[2021-06-15] MEDS: clonazePAM 1 MG Tablet PO ×2 (09:08→21:19)
[2021-06-15] MEDS: Venlafaxine XR 150 MG Capsule PO (09:08)
[2021-06-15] MEDS: Senna/Docusate Sodium 1 Tablet 2 TABLET PO ×2 (09:09→21:19)
[2021-06-15] MEDS: Cholecalciferol (VIT D3) 25 MCG TABLET (1,000 UNITS) PO (09:09)
--- NOTE | 2021-06-15 10:51 | REHABEVAL_ITS ---
Admission Information Primary Diagnosis:: debility due to ORIF of L trimalleolar fracture and ORIF of L radius and ulna fracture with NWB on the Left leg and the left arm. Status Changes from Prescreening?: No changes Identified Actual Problem List:: Falls, Skin Intergrity, Pain, ALteration in Cmfrt, Mobility Impaired, Self Care Deficit and Alteration-Leisure Activ. Potential Problem List:: DVT, Bleeding, Infection, UTI, Aspiration, Falls, Skin Integrity and Depression Risk of Complications DVT: LMWH and INGA Hose Bleeding: Monitor Lab Values, Nursing to Teach Precautions for anti-coagulation therapy., Wound, if applicable, to be assessed every shift. and Stroke patients assessed for lethargy or change in status. Infection: Clinical Staff to Monitor for S/S of infection: and S/S of infection include fever, redness, warmth, etc. Urinary Tract Infection: Monitor for frequency, burning, discomfort, or incontinence. and Nursing will obtain urine sample for urinalysis and C&S when ordered. Aspiration: Clinical staff will monitor for coughing, drooling, congestion., Speech will evaluate swallowing and dsyphasia. and Nursing will monitor patient swallowing during meals. Falls: Patient will be evaluated for Fall Precautions and Patient will be placed on Fall Precautions as indicated per protocol. Skin Breakdown: Nursing will assess skin daily using assessment tool. and Nursing will place on Skin Breakdown Precautions as indicated. Pain: Clinical staff will assess patient's pain level per protocol., Medications will be given, if needed, and the pain level reassessed. and Other methods: Massage, distraction, decrease stimulus, etc. used PRN. Plan of Care Patient requires physician specializing in physical medicine and rehab oversight to provide close medical supervision of rehab issues including: Pain Management, Sleep Problems, Bowel and Bladder, Medical and co-morbidity Management, DVT prophylaxis, Rehabilitation Leadership and Coordination of treatment team Patient needs Physical Therapy: For a minimum of 1 hour and At least 5 out of 7 days Patient needs Physical Therapy to improve:: Mobility, Strengthening, Transfers, Stretching, ROM, Endurance, Stairs, Gait and Balance Patient needs Occupational Therapy: For a minimum of 1 hour and At least 5 out of 7 days Patient needs Occupational Therapy to improve ADL's incl.: Eating, Grooming, Bathing, Dressing, Toileting, Toilet transfers, Community Reintegration, Higher functioning activities, Household tasks, Adaptive Equipment, Splinting and Other activities as determined Patient requires 24/7 Rehabilitation Nursing for: Pain Issues, Identifying and preventing risk factors, Monitoring and reporting current medical conditions, Assisting with ambulation, transfer, and all ADL's, Teaching patients about disease process and medications, Family teaching, Providing safe environment, Bowel and Bladder Issues, Skin integrity and Medication Management Patient needs Production Consultant/ Case Management for: Discharge Planning, Arranging Home Equipment or Services and Family Interventions Patient needs Dietary and Nutrition Services for: Adequate Nutrition, Nutritional Supplements and Nutritional Education Goals Patient will remain: free from falls and or injury at time of discharge. Patient will perform bed mobility at: Standby Assist. Patient will complete transfers from bed to chair at: Standby Assist. Patient will ambulate: - (100 ft on various surfaces at SBA) Patient will complete upper body dressing at: MOD I level of assist. Patient will complete lower body dressing at: MOD I level of assist. (With adaptive equipment when needed) Patient will complete toileting at: Standby Assist. Patient will perform bathing at: Standby Assist. Patient will complete grooming at: Standby Assist. Patient will complete home management skills at: - (will not be able to do home management until she is ambulatory and full weight bearing.) Patient will achieve: - Patient will have pain level of: of 3 or less Patient's skin will: remain intact Patient will receive: adequate nutrition. Discharge Planning Pt Prognosis for Sig. Practical Improv. w/in Reasonable Time: Good Estimated Length of stay (days): 14 Anticipated D/C Destination: TBD (She wants to go home but, I do not know if this is going to be possible. She has not done anything to try and get help if she does go home and has not even called to find out the availability of home care agencies in her neighborhood. The SW contacted all [facility] agencies no one is available ) Was Preadmission Assessment Accurate?: Yes
--- NOTE | 2021-06-15 10:51 | HP.PCM_ITS ---
HPI - General General Date of Admission: 06/14/21 HPI Narrative SALAZAR ROTHMAN, is a 61 F who was recently a pt in rehab after a fall resulting in a trimalleolar fracture of the Left ankle and L radius and ulna fracture. She had an external fixator placed by Dr. Mike on 05/16/21. she was sent to rehab to allow the pressure ulcers on the L ankle to heal and the swelling go down prior to ORIF and removal of the external fixator. PMH is significant for benzodiazepine dependence for 30 years, hx of Hepatitis B, chronic pain S., brain aneurysms, diet controlled DM II, obesity, anxiety/depression, panic attacks, OA, COPD, tobacco dependence, vitamin D deficiency, migraines, fatty infiltration of the liver, hyperlipidemia, reported history of pernicious anemia, benign colon polyps, borderline personality disorder and irritable bowel syndrome. While in rehab her anxiety and pain were treated and were in good control. She saw Dr. Madrigal in consult and will follow up with him post DC for pain management. She was transferred to the acute side of [facility] on 06/10/21 for ORIF of the left ankle and removal of the external fixator. The post operative course was unremarkable and she was transferred back to the acute rehab unit on 06/14/21 for 3 hours of therapy daily to work on strengthening and balance now that the external fixator has been removed. Her is 80 YO and will be unable to assist her at home. She remains NWB on the LUE and the LLE. She can stay on the first floor of her home and there is a BR that she can use but, she may need an ECF until she can bear weight if she can not do her ADL's without assist. Destination at [place] from rehab is not clear yet. [facility] Medical History (Updated 06/15/21 @ 17:[address] Rosa Enriquez, ) Anemia Borderline personality disorder Brain aneurysm Chronic back pain Chronic post-traumatic stress disorder COPD (chronic obstructive pulmonary disease) Diabetes Dietary restriction Fall Fistula Former smoker Fracture of metatarsal bone of right foot Generalized anxiety disorder with panic attacks History of depression History of edema History of hepatitis B Migraines Osteoarthritis Scaphoid fracture, wrist, closed Tobacco dependence due to cigarettes Vitamin D deficiency Home Medications acetaminophen 1,000 mg PO Q8 05/24/21 [History Last Taken Unknown] alprazolam 0.25 mg PO TID PRN #10 tab 05/24/21 [Rx Last Taken Unknown] bisacodyl 10 mg ND DAILY PRN PRN #0 ea 05/24/21 [Rx Last Taken Unknown] menthol-zinc oxide [Calmoseptine] 1 applic TOPICAL BID 05/24/21 [History Last Taken Unknown] nicotine 21 mg TRANSDERMAL DAILY 05/24/21 [History Last Taken Unknown] sennosides-docusate sodium [Stool Softener-Stimulant Laxat] 2 tab PO BID 05/24/21 [History Last Taken Unknown] alprazolam 0.25 mg PO BID PRN PRN #0 tab 06/09/21 [Rx Last Taken Unknown] nystatin [Nyamyc] 1 applic TOPICAL BID PRN #0 g 06/09/21 [Rx Last Taken Unknown] oxycodone 5 - 10 mg PO Q6H PRN PRN #0 tab 06/09/21 [Rx Last Taken Unknown] sennosides-docusate sodium [Stool Softener-Stimulant Laxat] 2 tab PO BID #0 tab 06/09/21 [Rx Last Taken Unknown] cholecalciferol (vitamin D3) 25 mcg PO DAILY 06/14/21 [History Last Taken Unknown] clonazepam 1 mg PO Q12 06/14/21 [History Last Taken Unknown] oxycodone [OxyContin] 20 mg PO BID 06/14/21 [History Last Taken Unknown] trazodone 50 - 100 mg PO QHS 06/14/21 [History Last Taken Unknown] venlafaxine 150 mg PO DAILY 06/14/21 [History Last Taken Unknown] Allergy/AdvReac Type Severity Reaction Status Date / Time ibuprofen Allergy Rash Verified 05/14/21 19:51 Sulfa (Sulfonamide Allergy Unknown Verified 05/14/21 19:51 Antibiotics) Family History Mother Breast cancer Cancer bone Anxiety and depression Grandmother Breast cancer Hypertension Father Cancer oral Myocardial infarction Alcoholism Daughter Autism Daughter Bipolar 1 disorder Surgical History (Updated 06/15/21 @ 17:[address] Rosa Enriquez DO) History of History of cholecystectomy History of colonoscopy with polypectomy History of open reduction and internal fixation (ORIF) procedure Status post open reduction and internal fixation (ORIF) of fracture Status post open reduction and internal fixation (ORIF) of fracture Status post ORIF of fracture of ankle Social History Smoking Status: Heavy Smoker (>10/day) Tobacco: How many years used: 40 how long ago did patient quit smokin05/14/21....stopped due to admission to the hospital counseling given: provider counseling alcohol intake: former details: no longer drinks at all. Denies any hx of illicit drug use substance use type: does not use what type of physical activity do you participate in: none ROS Constitutional Constitutional: Denies anorexia, change in weight, chills, fatigue, fever(s), headache(s), night sweats or weakness Eyes Eyes: Denies blurry vision, change in vision, eye pain or loss of vision ENT HEENT: Denies abnormal hearing, dysphagia, headache(s), hearing loss, nasal congestion or sore throat Cardiovascular Cardiovascular: Denies chest pain, dyspnea on exertion, edema, lightheadedness, orthopnea, palpitations, paroxysmal nocturnal dyspnea or syncope Respiratory/Chest Respiratory/Chest: Denies cough, dyspnea, shortness of breath at rest, shortness of breath with exertion or wheezing Gastrointestinal Gastrointestinal: Denies abdominal pain, constipation, diarrhea, dyspepsia, hematemesis, hematochezia, nausea or vomiting Genitourinary Genitourinary: Denies dysuria, hematuria, nocturia, urinary frequency, urinary hesitancy, urinary incontinence or urinary urgency Musculoskeletal Musculoskeletal: Reports back pain, extremity pain, joint pain and joint swelling; Denies neck pain Integumentary Integumentary: Reports wounds and other Details: Incision L ankle due to recent ORIF of a trimalleolar fracture ; Denies rash Neurologic Neurologic: Denies confusion, disequilibrium, dizziness, focal weakness, headache(s), paresthesias, seizures or tremor(s) Psychiatric Psychiatric: Reports anxiety; Denies depression, homicidal ideation or suicidal ideation Endocrine Endocrinology: Denies change in body appearance, polydipsia or polyuria Hematologic/Lymphatic Hematologic/Lymphatic: Denies easy bleeding, easy bruising or lymphadenopathy Allergic/Immunologic Allergic/Immunologic: Denies rhinitis, eczemia or asthma Vital Signs Vital Signs Vital Signs: 06/14/21 19:55 06/14/21 22:00 06/15/21 07:22 Temperature 97.8 F 96.8 F L Temperature Source Temporal Temporal Pulse Rate 76 79 Respiratory Rate 16 16 Respiratory Effort Normal Non-Labored Respiratory Depth Normal Respiratory Pattern Normal Blood Pressure 98/56 L 99/52 L Blood Pressure Mean 70 67 Blood Pressure Source Monitor Monitor Blood Pressure Position Semi-Fowlers Semi-Fowlers Blood Pressure Location Right Arm Right Arm Pulse Ox 95 95 94 Oxygen Delivery Method Room Air Room Air Room Air 06/15/21 08:30 Temperature 96.8 F L Temperature Source Oral Pulse Rate 61 Respiratory Rate 16 Respiratory Effort Respiratory Depth Respiratory Pattern Blood Pressure 97/42 L Blood Pressure Mean 60 Blood Pressure Source Monitor Blood Pressure Position Semi-Fowlers Blood Pressure Location Right Arm Pulse Ox 94 Oxygen Delivery Method Room Air Weight Weight: 207 lb 10.807 oz Body Mass Index (BMI) 32.5 Physical Exam Const alert, oriented x3 and no apparent distress Constitutional Narrative: Making good eye contact, appropriate. Lying in bed - just finished PT. Tells me that she slept well last night General Appearance: cooperative, comfortable and well developed HEENT moist oral mucous membranes Neck no lymphadenopathy, supple and no JVD General: trachea midline Resp normal respiratory effort, no use of accessory muscles and clear to auscultation bilaterally Resp Narrative: Not tachypneic and no conversational dyspnea. Cardio regular rate, regular rhythm, S1 normal heart sound, S2 normal heart sound, no murmurs, no rub and no gallops GI normal to inspection, nondistended, normoactive bowel sounds and non-tender GI Narrative: No guarding with palpation. Extremity no clubbing, cyanosis or edema Extremity Narrative: the MARKE is now in a brace and the cast has been removed. She has very dry skin on the fingers of the left hand with mild swelling. She is c/o numbness on the extensor surface of the L thumb. Skin Skin Narrative: No rashes, no skin breakdown. Dry skin on the fingers of the L hand.....peeling in places. Neuro oriented x3, CN's II-XII intact bilaterally and no focal motor deficits Motor Exam: strength 5/5 throughout Psych affect normal Psych Narrative: Appropriate, making good eye contact. Able to stay on topic and focus. No flight of ideas. Does not appear anxious or depressed. Conversant. Thought process is normal. Affect is kind of flat. she is not argumentative. She related to me that Dr. Mike told her she would have pain in the left ankle and forearm for the rest of her life........like severe arthritis. She is c/o severe pain now. She has not asked for any increase in her pain meds. She also did not c/o anxiety and request an increase in Klonopin or Alprazolam. Results Lab / Micro Data Result Diagrams: 06/15/21 02:39 06/15/21 02:39 Labs: Laboratory Results - last 24 hr 06/15/21 02:39: WBC 7.0, RBC 4.34, Hgb 11.8 L, Hct 37.6, MCV 86.6, MCH 27.2, MCHC 31.4 L, RDW Std Deviation 40.4, RDW Coeff of Joleen 12.6, Plt Count 368, MPV 9.0 06/15/21 02:39: Sodium 142, Potassium 3.8, Chloride 103, Carbon Dioxide 32.0, Anion Gap 7, BUN 19 H, Creatinine 0.80, Estim Creat Clear Calc 69.13, Est GFR (MDRD) Af Amer 94, Est GFR (MDRD) Non-Af 77, BUN/Creatinine Ratio 23.7 H, Glucose 110 H, Calcium 9.3, Phosphorus 4.1, Magnesium 2.3, Total Bilirubin 0.30, AST 11 L, ALT 23, Alkaline Phosphatase 93, Total Protein 6.8, Albumin 2.9 L, Globulin 3.9, Albumin/Globulin Ratio 0.7 L Assessment & Plan Assessment/Plan (1) Physical debility: (2) Trimalleolar fracture of left ankle: (3) Fracture of left radius and ulna: (4) Status post open reduction and internal fixation (ORIF) of fracture: (5) Status post ORIF of fracture of ankle: (6) Borderline personality disorder: (7) Chronic post-traumatic stress disorder: (8) Chronic back pain: PLAN: PLAN PT for gait stability OT for ADL's Analgesics as needed - she is getting OxyContin 20 mg twice daily and as needed OxyIR 5 to 10 mg every 6 hours as needed breakthrough pain. We are going to increase this to every 4 hours for the next few days and then back to every 6 hours. She will follow up with Dr. Dr. Madrigal as an outpatient for chronic pain control. Bowel protocol Fall precautions Assess for Anxiety/Depression-continue Effexor 150 mg daily, Klonopin 1 mg p.o. every 12 hours and Xanax 0.25 mg 3 times daily as needed for panic attack. GI prophylaxis-not necessary, she has no epigastric pain and no complaints of heartburn or reflux. DVT prophylaxis with enoxaparin 40 mg subcu daily......will likely DC on Eliquis 2.5 mg BID if she goes home until she is able to bear weight on the LLE and is ambulatory Follow up with Dr. Mike, Dr. French Moss for PCP in the [facility] in a psychiatric clinic for follow-up on PTSD, anxiety with panic attacks and bord [place] personality disorder. She will also follow-up with Dr. Dr. Madrigal for pain management. AM lab including CMP, CBC, Mag and Phos - reviewed today. Unit Exclusion This patient is an acute care inpatient being housed in the excluded unit ran use of capacity issues related to the disaster or emergency.: Yes Charges/Coding Visit Charges Inpatient E&M: 60745 Init Hosp L2
[2021-06-15] MEDS: oxyCODONE HCl Cr 10 MG Tablet 20 MG PO ×2 (11:43→21:18)
[2021-06-15] MEDS: Nystatin Powder 15gm Bottle 1 APPLIC TOPICAL ×2 (11:45→21:56)
[2021-06-15] MEDS: Magnesium Hydroxide 30 ML UDC PO (15:03)
[2021-06-15 22:00] VITALS: BP 115/50; PULSE 68; PULSE 72; RESP 16; TEMP 36.5; O2SAT 97
[2021-06-16] MEDS: traZODone 50 MG Tablet PO ×2 (02:50→23:44)
[2021-06-16] MEDS: Enoxaparin 40 MG/0.4 ML Syringe SC (05:30)
[2021-06-16] MEDS: Acetaminophen 500 MG Tablet 1000 MG PO ×4 (05:31→23:43)
[2021-06-16] MEDS: oxyCODONE 5 MG Tablet PO ×3 (05:39→16:32)
[2021-06-16 07:39] VITALS: BP 114/58; PULSE 93; RESP 16; TEMP 36.8; O2SAT 97
--- NOTE | 2021-06-16 09:24 | CASEMGMT ---
Social Work SW met w/pt in room to complete LW/Healthcare POA. Pt states is not ready to complete the documents yet, at present stating she would like to complete the forms once she goes home. She does want to put her as healthcare POA, but she is still not sure who she would put as second. SW did review the document with her and how to complete it. SW explained she can complete on her own when she leaves, or can call this SW to set up a time after discharge for this SW to assist her in completing the forms. SW also let pt know if she changes her mind and would like to complete the document while she is here, to call this SW and SW will assist pt in completing the forms while she is here. SW will continue to follow for discharge needs. CINDY Cornejo
[2021-06-16] MEDS: oxyCODONE HCl Cr 10 MG Tablet 20 MG PO ×2 (09:48→23:44)
[2021-06-16] MEDS: clonazePAM 1 MG Tablet PO ×2 (09:50→23:44)
[2021-06-16] MEDS: Venlafaxine XR 150 MG Capsule PO (09:51)
[2021-06-16] MEDS: Nystatin Powder 15gm Bottle 1 APPLIC TOPICAL ×2 (09:52→23:45)
[2021-06-16] MEDS: Cholecalciferol (VIT D3) 25 MCG TABLET (1,000 UNITS) PO (09:52)
[2021-06-16] MEDS: Senna/Docusate Sodium 1 Tablet 2 TABLET PO ×2 (09:52→23:44)
--- NOTE | 2021-06-16 09:57 | NURSING ---
Patient c/o not being able to sleep at all. Overall agitated this AM claiming not willing to participate in therapy if she does not get sleep stated she is going to lose her mind. Given OxyContin and Klonopin this AM. Pain rated at a 10. Eucerin applied to left hand due to dryness and flakiness. Other than being tired, patient is overall pleasant this AM.
[2021-06-16] MEDS: ALPRAZolam 0.25 MG Tablet PO (20:11)
[2021-06-16 20:23] VITALS: BP 106/55; PULSE 66; RESP 15; TEMP 35.9; O2SAT 95
[2021-06-17] MEDS: Enoxaparin 40 MG/0.4 ML Syringe SC (06:19)
[2021-06-17] MEDS: Acetaminophen 500 MG Tablet 1000 MG PO ×3 (06:19→21:22)
[2021-06-17] MEDS: oxyCODONE 5 MG Tablet PO ×4 (06:23→20:15)
[2021-06-17 07:30] VITALS: BP 97/50; PULSE 58; RESP 16; TEMP 36.1; O2SAT 92
[2021-06-17] MEDS: clonazePAM 1 MG Tablet PO ×2 (10:22→21:23)
[2021-06-17] MEDS: Venlafaxine XR 150 MG Capsule PO (10:22)
[2021-06-17] MEDS: Senna/Docusate Sodium 1 Tablet 2 TABLET PO ×2 (10:23→20:19)
[2021-06-17] MEDS: oxyCODONE HCl Cr 10 MG Tablet 20 MG PO ×2 (10:23→22:07)
[2021-06-17] MEDS: Cholecalciferol (VIT D3) 25 MCG TABLET (1,000 UNITS) PO (10:23)
[2021-06-17] MEDS: Nystatin Powder 15gm Bottle 1 APPLIC TOPICAL ×2 (10:25→21:23)
--- NOTE | 2021-06-17 14:46 | CASEMGMT ---
Social Work IDT met with patient and for Team meeting. Discussed patient's progress in PT/OT and nursing. Explained [employer] insurance with NRD 06/18 and continued stay is not guaranteed. Pt getting anxious about unknown of DC. IDT presented setting DC date home for 2/2. Pt and agreeable and can have a timeframe to prepare. Provided another nonskilled [facility] list and encouraged to begin contacting agencies. IDT expressed concern about DC home and not having enough assistance, but pt and adamant about returning home - they have enough money to pay for help. Cautioned SW will recontact [facility] agencies to see if staffing has changed or if [facility] can accept self-pay, but unsure of success. Offered outpatient therapy as an option, but pt/ express concern for transport. Provided resources for transportation - they reiterated money is not an issue. SW to update [employer] of confirmed DC date to reschedule delivery to home: slideboard, drop arm BSC, w/c with elevating leg rests, bedside table and hospital bed. SW will also schedule w/c transport home through [facility]. Plan: DC home with 2/2 with DME and therapy. Zunilda Ingram, ACCOUNTING COORDINATOR TMR TEACHER
[2021-06-17] MEDS: ALPRAZolam 0.25 MG Tablet PO (14:49)
[2021-06-17 15:11] VITALS: O2SAT 92
[2021-06-17] MEDS: Magnesium Hydroxide 30 ML UDC PO (16:27)
--- NOTE | 2021-06-17 17:11 | PCM.PN.BLA ---
Progress Note Afebrile VSS-blood pressure has gone down through the day and so has her pulse ox. She is taking the oxycodone 10 mg usually three times a day and she remains on OxyContin 20 mg every 12 hours. Will decrease the Oxycodone dose to 5 mg PO q 4H PRN because I suspect the decrease in HR, BP and pulse ox is due to overmedication. Maintaining appropriate oxygen saturation on RA Oral intake is good Discussed with nursing - no problems that need addressed Reviewed the PT/OT notes Medication list reviewed. She is taking Xanax usually once daily. She is still on Klonopin 1 mg p.o. every 12 hours. Today she is c/o pain that is severe and also c/o watery, itchy eyes. No crusting of the eye lids this AM. Tells me that she has allergies and she uses an OTC antihistamine at home. No CP, SOB, N/V/abd pain. She is eating well. She wants to be discharged home and we tentatively set a date of 06/23 which is next Monday. Physical Exam Const alert, oriented x3 and no apparent distress Constitutional Narrative: Sitting in the WC. HEENT HEENT Narrative: Dry MM - she was instructed to increase her fluid intake Eyes Eyes Narrative: No purulent DC, small amount of watery DC, she has some rhinorrhea and I suspect she has being crying and that is why she has some conjunctival injection. No subconjunctival hemorrhage. The eyelids are not crusty. At first she said it was just the R eye and then she said it spread to the Left. There are no aguilera in the room. Her anxiety level increases when Jamar is in the room......he asks inappropriate questions and does not listen. He repeats himself often. Resp clear to auscultation bilaterally Cardio regular rate and regular rhythm Cardio Narrative: gets bradycardic after a few doses of Oxycodone 10 mg and the BP drops GI normal to inspection, nondistended, normoactive bowel sounds, soft to palpation and non-tender Extremity Extremity Narrative: the toes on the Left foot are dusky and the legs are dependent.......we had this problem on her first admission to rehab and it resolved when she started to comply with elevating her leg. The toes are warm and she has intact sensation. Skin General Skin Exam: no breakdown Rashes: no rashes Assessment & Plan Assessment/Plan (1) Physical debility: (2) Trimalleolar fracture of left ankle: (3) Status post ORIF of fracture of ankle: (4) Fracture of left radius and ulna: (5) Status post open reduction and internal fixation (ORIF) of fracture: (6) Generalized anxiety disorder with panic attacks: (7) Borderline personality disorder: PLAN: The borderline personality disorder has been a problem. She can be very manipulative.......she gave the therapists on the acute side and the nurses a lot of grief and was very demanding. She was given a list of home care agencies where she lives by the at the initial admission to rehab and she made no phone calls to see if she could find someone to come in daily and help with bathing/dressing etc. She says she will need someone in the mornings at least. She made no phone calls and now she lost the list. She also lost the number for the psych facility in [place] that the clothing consultant gave her on the last admission and she made no phone calls. She wants to have OP PT/OT at [place] but, she could not get in [facility]'s car today with the assistance of the therapist. Jamar can not help her......I suspect he has dementia and he is frail......he needs help himself. Prior to coming to the ED for Leg pain she waited 10 days at [facility] after the fall. She admitted to getting pain medication from friends and she told me that she did not know what they gave her. Unfortunately no drug screen was done in the ED. Despite being on Oxycontin and Oxycodone she is constantly c/o severe pain. She will need to be transported to OP therapy and likely will not be able to go in the car with Jamar driving.......they have no called anyone to see if there is a [place] service they can hire to take her to therapy. I do not think this is going to go well and I do not think she will be safe at home. She has not made any move to get care arranged for when she is discharged. There are no [facility] services that will be able to take her on.....the [facility] cal[facility] places and they either do not take her insurance or they do not have the staffing. If she has not made any phone calls and arranged for help at home and transportation to therapy I will likely call [facility] to check on the living situation at home. Therapy will continue to work with her to get her able to get into and out of a car. Jamar will return tomorrow with the other car to see if that works better. In my opinion she should be going to an SNF until she is able to bear weight on the Left leg and arm and ambulate. She continues to tell me she will not do this. Decrease the Oxycodone to 5 mg Q 4 H prn pain 4-10. On Monday will likely decrease the Oxycontin to 10 mg Q 12H. Visit Charges Inpatient E&M: 89663 Subs Hosp L2
[2021-06-17] MEDS: Bisacodyl 10 MG Suppository RC (20:16)
[2021-06-17 20:25] VITALS: BP 90/50; PULSE 63; RESP 18; TEMP 36.6; O2SAT 97
[2021-06-18] MEDS: oxyCODONE 5 MG Tablet PO ×3 (02:11→14:31)
[2021-06-18] MEDS: ALPRAZolam 0.25 MG Tablet PO ×2 (02:16→14:34)
[2021-06-18] MEDS: Acetaminophen 500 MG Tablet 1000 MG PO ×3 (06:39→20:37)
[2021-06-18] MEDS: Enoxaparin 40 MG/0.4 ML Syringe SC (06:40)
[2021-06-18 07:55] VITALS: BP 125/64; PULSE 62; RESP 16; TEMP 36.5; O2SAT 97
[2021-06-18] MEDS: Venlafaxine XR 150 MG Capsule PO (08:05)
[2021-06-18] MEDS: Cholecalciferol (VIT D3) 25 MCG TABLET (1,000 UNITS) PO (08:05)
[2021-06-18] MEDS: Senna/Docusate Sodium 1 Tablet 2 TABLET PO ×2 (08:05→20:38)
[2021-06-18] MEDS: Nystatin Powder 15gm Bottle 1 APPLIC TOPICAL ×2 (08:07→21:32)
--- NOTE | 2021-06-18 09:03 | CASEMGMT ---
Addendum entered by Zunilda Ingram 06/18/21 15:51: Provided pt with transportation resources. Original Note: Social Work Received call from [facility] CM offering DC assistance, if needed. Returned call - left voicemail inquiring about C agencies - all DME is ordered. Updated [employer] on DC date 06/23 and to schedule delivery and discuss any out of pocket costs with for 06/22. W/C and elevating leg rests to be delivered to pts room 06/22. Schedule w/c transport through [facility] for 2 pm. Plan: DC home with 06/23, DME, HHC PT/OT/SN/KLINE/SW Zunilda Ingram, BLOOMING MILL SUPERVISOR SENIOR SPECIALIST
[2021-06-18] MEDS: oxyCODONE HCl Cr 10 MG Tablet 20 MG PO ×2 (10:54→21:32)
[2021-06-18] MEDS: clonazePAM 1 MG Tablet PO ×2 (10:55→20:38)
--- NOTE | 2021-06-18 11:25 | PN_ITS ---
Progress Note POD #8 Mariah was seen on TEAM rounds today. Her Jamar was present and seemed confused. He has tangential thinking and can not focus. He can not remember what he has been asked to do and seems to think the SW will take care of things......like calling a transport service to get Mariah to and from OP therapy once she is discharged home. Blood pressure is much better with the change in narcotics today and the blood pressure this a.m. was 125/69 with a heart rate of 62. Afebrile Pulse ox is 97% on room air today with a normal respiratory rate. Good oral intake PT refused to do therapy today because she is not happy with the decrease in oxycodone from 10 mg to 5 mg p.o. every 4 hours as needed. She later recanted and did therapy. She has a strong need to be in control. She is able to get in and out of a car now. She complains to the nurses and therapists that she has 10/10 pain but, she does not complain of this to me and never asks for an increase in the pain meds or the Anxiety medications. She is c/o she thinks she has the flu because she has watery eyes that are somewhat injected. She has no cough, no sore throat, no SOB, no N/V, no fevers and no chills. She says that she gets this at home and she takes Benadryl. She denies CP, lightheadedness, constipation, nausea, palpitations. She feels anxious about DC and has been taking Xanax 1-2 times a day. Alert and oriented x3 Minimal injection of the right eye only. No mattering of the eyelids. No purulent DC. She has some mild watery DC. Lungs - CTA HRRR abd - soft and NT, ND No edema of the R ankle. The left leg is in a boot. She has intact sensation of both LE's/toes with no sensory loss no calf pain. No rashes and no skin breakdown Impressions 1. Acute on chronic pain - she shows no sign of any distress, is eating and drinking well and VSS. No change in the pain regimen at this time. It is difficult to manage her pain because she constantly rates it 10/10 to the nurses and therapists and never says anything to me. She uses this as an excuse to not do therapy but, when I tell her that if she can not do therapy we will have to transfer her to a lower level of care she relents and does therapy. 2. Borderline personality disorder with a need to control every situation 3. Anxiety with panic attacks 4. PTSD. 5. possible viral conjunctivitis of the R eye. Will try some artificial tears. DC has been set for 06/23/21. I encouraged her to make the phone calls to the mental health center in [place] and the agencies near where she lives to secure assistance with live in companion and self care when she goes home. The plan is to have her down to 10 mg Oxycontin Q12H before the proposed DC date of 06/23/21 if possible but, she is very resistant and tapering the pain medication down may need to be done by Barry Madrigal. an appt has been made for her to follow up with Dr. Madrigal on 07/07/21. Mariah and Jamar were both charged with making phone calls to determine IF there is a home care agency in her area that will be able to accommodate her for the hours she wants. Jamar was given the task of calling a transport service in the hometown and finding out if they will be able to transport Mariah to and from OP therapy if she is discharged home next Monday and what that service would cost them. Visit Charges Inpatient E&M: 96756 Subs Hosp L2
--- NOTE | 2021-06-18 14:57 | CASEMGMT ---
Addendum entered by Zunilda Ingram 06/18/21 15:26: Received call from - he is home and well. Connected him to speak to pt. Original Note: Social Work Notified by nursing that pt is worried about as she has not gotten ahold of him since he left from Team yesterday around 1500. Inquired for further details. Pt stated mentioned not feeling well, having flu-like symptoms. She has tried calling him many times and no answer or return phone call. Pt does not have neighbors phone numbers to contact. This worker attempted to search for neighbors information, but unsuccessful. Pt requested this worker contact [place] [employer] for a wellness check. Spoke with dispatcher at [place] [employer] and provided above information and contact information for . Police dispatched to complete check and will contact this worker with outcome. Updated pt - provided support and validated feelings. Pt appreciative. Updated nursing. SW to continue to follow. Zunilda Ingram, SILVIA MAGUIRE
[2021-06-18 21:35] VITALS: BP 133/60; PULSE 68; RESP 16; TEMP 35.9; O2SAT 94
[2021-06-19] MEDS: oxyCODONE 5 MG Tablet PO ×5 (00:12→21:15)
[2021-06-19] MEDS: ALPRAZolam 0.25 MG Tablet PO ×2 (01:10→13:25)
[2021-06-19] MEDS: Acetaminophen 500 MG Tablet 1000 MG PO ×3 (06:00→22:00)
[2021-06-19] MEDS: Enoxaparin 40 MG/0.4 ML Syringe SC (06:00)
[2021-06-19] MEDS: oxyCODONE HCl Cr 10 MG Tablet 20 MG PO ×2 (10:00→22:00)
[2021-06-19] MEDS: Cholecalciferol (VIT D3) 25 MCG TABLET (1,000 UNITS) PO (10:00)
[2021-06-19] MEDS: Venlafaxine XR 150 MG Capsule PO (10:00)
[2021-06-19] MEDS: clonazePAM 1 MG Tablet PO ×2 (10:00→22:00)
[2021-06-19] MEDS: Senna/Docusate Sodium 1 Tablet 2 TABLET PO ×2 (10:00→22:00)
[2021-06-19 19:30] VITALS: BP 117/60; PULSE 74; RESP 17; TEMP 36.3; O2SAT 96
[2021-06-19] MEDS: Magnesium Hydroxide 30 ML UDC PO (21:15)
[2021-06-20] MEDS: oxyCODONE 5 MG Tablet PO ×3 (04:22→17:24)
[2021-06-20] MEDS: Acetaminophen 500 MG Tablet 1000 MG PO ×3 (06:39→21:12)
[2021-06-20] MEDS: Enoxaparin 40 MG/0.4 ML Syringe SC (06:39)
[2021-06-20] MEDS: ALPRAZolam 0.25 MG Tablet PO (06:46)
[2021-06-20 10:00] VITALS: BP 104/53; PULSE 58; RESP 16; TEMP 36.3
[2021-06-20] MEDS: oxyCODONE HCl Cr 10 MG Tablet 20 MG PO ×2 (10:31→21:12)
[2021-06-20] MEDS: Senna/Docusate Sodium 1 Tablet 2 TABLET PO ×2 (10:31→21:12)
[2021-06-20] MEDS: Venlafaxine XR 150 MG Capsule PO (10:31)
[2021-06-20] MEDS: Cholecalciferol (VIT D3) 25 MCG TABLET (1,000 UNITS) PO (10:31)
[2021-06-20] MEDS: clonazePAM 1 MG Tablet PO ×2 (10:31→21:17)
[2021-06-20] MEDS: Bisacodyl 10 MG Suppository RC (14:49)
[2021-06-20 19:30] VITALS: BP 114/71; PULSE 64; RESP 16; TEMP 36.2; O2SAT 96
[2021-06-21] MEDS: oxyCODONE 5 MG Tablet PO ×4 (01:15→17:06)
[2021-06-21] MEDS: ALPRAZolam 0.25 MG Tablet PO (02:58)
[2021-06-21] MEDS: Enoxaparin 40 MG/0.4 ML Syringe SC (05:40)
[2021-06-21] MEDS: Acetaminophen 500 MG Tablet 1000 MG PO ×3 (05:42→22:08)
[2021-06-21 06:55] VITALS: BP 124/63; PULSE 59; RESP 16; TEMP 36.8; O2SAT 98
[2021-06-21] MEDS: clonazePAM 1 MG Tablet PO ×2 (09:49→22:07)
[2021-06-21] MEDS: Venlafaxine XR 150 MG Capsule PO (09:49)
[2021-06-21] MEDS: Cholecalciferol (VIT D3) 25 MCG TABLET (1,000 UNITS) PO (09:50)
[2021-06-21] MEDS: Senna/Docusate Sodium 1 Tablet 2 TABLET PO ×2 (09:50→22:08)
[2021-06-21] MEDS: Nystatin Powder 15gm Bottle 1 APPLIC TOPICAL ×2 (09:56→22:08)
[2021-06-21 10:00] VITALS: RESP 16
[2021-06-21] MEDS: oxyCODONE HCl Cr 10 MG Tablet 20 MG PO ×2 (10:49→22:07)
--- NOTE | 2021-06-21 10:53 | PN_ITS ---
Progress Note Afebrile VSS Maintaining appropriate oxygen saturation on RA Oral intake is good Discussed with nursing - no problems that need addressed Reviewed the PT/OT notes and discussed with the therapists. She has been very short with the therapists and refuses to do therapy unless it is on her schedule. Needing much encouragement to get up. Poor motivation. Told the OT she just wants to lay here and sleep. Medication list reviewed. Has been taking Xanax 1-2 times a day. She is taking oxycodone 3-5 times daily. She was taking narcotics she got from friends at home and I suspect she has a tolerance for narcotics. DC is Monday. She told the SW she did not want PT but, she told me she wanted to have PT and does not know if she can arrange for transportation. Her was told to call some places for transportation to PT when he is not able to drive her. She is able to get in and out of their car. she has not called the mental Health clinic in [place] to schedule an appt to be seen so that she can get RX's filled going forward for anxiety/depression/panic attacks. She knows that I will give her RX's for 1 month only and will not renew. She lost the number she was given by on her first admission to rehab.......she also lost the numbers for home care agencies to help with bathing and house hold chores post DC. this list was given during the first admission and she never made a call. She told the OT today she had not made any phone calls but told me she talked with [facility] and will have visits 3 times a week for 5 hours a day. I do not know what to believe. She has no motivation to help herself and I do not know what to believe because the story changes. She did not c/o pain to me and did not ask for any increases in the medication for pain or anxiety. Physical Exam Const alert, oriented x3 and no apparent distress Constitutional Narrative: She is sitting at the bedside eating her dinner. She appears comfortable Eyes EOMs intact bilaterally, conjunctivae normal and no scleral icterus Chest Chest: symmetrical chest wall rise Resp clear to auscultation bilaterally Effort and Inspection: able to speak in complete sentences Cardio regular rate, regular rhythm and no gallops GI normal to inspection, nondistended, normoactive bowel sounds and soft to palpation Assessment & Plan Assessment/Plan (1) Status post ORIF of fracture of ankle: (2) Status post open reduction and internal fixation (ORIF) of fracture: (3) Generalized anxiety disorder with panic attacks: (4) Borderline personality disorder: PLAN: 1. Will have nursing call and get the number of the mental health agency given to her by so that she can call and get appt. 2. Plan for DC on Monday 3. I am skeptical about her going home. she was using drugs she got from friends at home.......she will not tell me what they were. Her is old and feeble and an alcoholic who still drinks at times. His memory is very poor and his questions and requests are inappropriate. I do not know what to believe......has she arranged for [facility] or not? Will she go to PT/OT or not? 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 She stayed at home taking meds form friends for 10 days after she fell and broke her ankle and he arm. Her judgement is not good. 4. she has an appt to follow up with Dr. Mike post DC and also an appt with Dr. Madrigal on 07/07/21. She will follow up with Dr. French Msos for her PCP. I will write a RX for Oxycontin and oxycodone for 7 days and then renew them in 7 days which will get her to the day of her appt with Dr. Madrigal. She is aware that I will write for no narcotics after she is scheduled with Dr. Madrigal.......even if she no shows for that appt. She will need to sign a contract with me prior to getting RX's for controlled substances. Visit Charges Inpatient E&M: 61565 Subs Hosp L2
--- NOTE | 2021-06-21 14:08 | CASEMGMT ---
Addendum entered by Zunilda Ingram 06/21/21 16:43: [facility] agencies continue to deny due to not in network with pts insurance and/or no staffing in pts area. Spoke with pt to update on barriers with [facility] and they cannot accept self-pay. Offered to make referral for outpatient therapy services. Pt denied - stated I have to see the Dr any how so I will just wait to see what he says. Explained she would be going home with no continued therapy or orders. Pt expressed understanding. Suggested SNF again as she has not secured any nonskilled [facility] agencies either. Pt still choosing to DC home. Explained if Dr agrees with outpatient therapy for him to write script and place referral. Pt expressed understanding. W/C transport scheduled for DC 06/23 at 1400. SW to make APS referral the day of DC. Original Note: Social Work [employer] approved for DC date 06/23. Referrals made to [facility] agencies again. Thus far have not received approval or option for self pay. Awaiting outcome of one final [facility] agency prior to updating pt. IDT concerned about pt discharging home without assistance in the. Pt has still not made any phone calls to get additional assistance. requesting this worker make APS referral as it is unsafe in the home for pt and . Will continue to follow. SILVIA DiamondW
[2021-06-21 19:40] VITALS: BP 94/46; PULSE 67; RESP 14; TEMP 36.6; O2SAT 96
[2021-06-22] MEDS: oxyCODONE 5 MG Tablet PO ×4 (02:53→16:45)
--- NOTE | 2021-06-22 05:01 | NURSING ---
REVIEWED AND AGREE WITH [employer] FUNCTIONAL ASSESSMENT AND HANDOFF CHARTING.
[2021-06-22] MEDS: Acetaminophen 500 MG Tablet 1000 MG PO ×3 (05:22→22:10)
[2021-06-22] MEDS: Enoxaparin 40 MG/0.4 ML Syringe SC (05:22)
[2021-06-22 07:28] VITALS: BP 120/66; PULSE 64; RESP 16; TEMP 36.3; O2SAT 95
[2021-06-22] MEDS: oxyCODONE HCl Cr 10 MG Tablet 20 MG PO ×2 (09:34→22:08)
[2021-06-22] MEDS: clonazePAM 1 MG Tablet PO ×2 (09:34→22:07)
[2021-06-22] MEDS: Venlafaxine XR 150 MG Capsule PO (09:35)
[2021-06-22] MEDS: Nystatin Powder 15gm Bottle 1 APPLIC TOPICAL (09:36)
[2021-06-22] MEDS: Senna/Docusate Sodium 1 Tablet 2 TABLET PO ×2 (09:37→22:09)
[2021-06-22] MEDS: Cholecalciferol (VIT D3) 25 MCG TABLET (1,000 UNITS) PO (09:37)
--- NOTE | 2021-06-22 12:47 | DCINST_ITS ---
Discharge Instructions Diet Discharge Diet: Carb Control Diet Activity Discharge Activity: May Not Drive, May Shower and Use Walker Weight Bearing Status: No weight bearing (Left arm and the Left leg) Lifting Restrictions: 5 lbs Keep extremity elevated above heart level: Left Arm and Left Leg Dressing / Incision Call your doctor if your incision/area has: Continuous Slow Oozing, Sudden Increased Bleeding, Increased Pain/ Swelling, Increased Redness, Foul Smelling Discharge and Swelling at the incision site Call your doctor if you observe: Fever of 101 or Higher, Coldness, Increased Pain, Numbness or Tingling, Change in Color, Inability to have a bowel movement, Shortness of breath, Dizziness, Chest pain, Calf discomfort and Uncontrolled pain Suture Line Care: Avoid Pulling/Pushing and Avoid Pinching/Bending Change Dressing in: leave in place till F/U Follow Up Care Please Follow Up With: Den Mike DO When: Has an appt 06/25/21 Test Results: Test results from this visit will be discussed in further detail at your follow-up appointment, if applicable. Pending Tests Upon Discharge: none Discharge Plan Admission Admit Date/Time: 06/14/21 19:21 Primary Reason for Your Visit: L trimalleolar ankle FX and L radius and ulna FX Attending Provider: Rosa Enriquez Primary Care Provider: Care Physician,No Primary Consulting Providers: Saurabh Madrigal ; eDn Mike Instructions Patient Instructions: Managing Chronic Pain Additional Instructions / Restrictions: 1. The name of the mental Health center in [place] is [facility]. The address is [address] [place] [address] . [employer] 2. You have a follow up appt with Dr. Madrigal on 07/07/21 for chronic pain management. 3. Your PCP will be Dr. French Moss 4. You MUST have physical and occupational therapy as an Outpatient. There are no home health agencies in your area that accept your insurance and they do not accept private paying clients. If you need transportation there are likely companies in your area that will transport you for pay. You are able to get in and out of a car so maybe even you can get to therapy by taxi. You will need to investigate the options. If you do not get PT/OT you will lose the strength you have gained in Rehab an iit will be harder to walk when you are released to bear weight on the left side. You have been given exercises to do daily at home by the physical therapist and the occupational therapist. 5. By Law I am only able to give you 7 days worth of pain medication when you leave rehab. I may be able to get [employer] to cover 14 days since you have an appt with Dr. Madrigal for chronic pain management on 07/07/21. I will not be able to Prescribe any pain medication beyond 07/07/21. I will give you a 1 month prescription for Klonopin for the chronic anxiety and some Xanax to use as needed for panic attacks. I will not be able to give you any prescriptions for these medications beyond 1 months time. If you suddenly stop taking addictive medications like narcotics and anxiety medications you can go through withdrawal and this can cause serious complications such as seizures, hallucinations, nausea and vomiting and even . DO NOT use alcohol with narcotic pain medication. DO NOT make important decisions while taking narcotic medication. Do not drive while taking narcotic medication. If you have problems while taking your medication (rash, itching, nausea etc.) call your primary care doctor. Do NOT accept drugs from friends for pain control or anxiety control. 6. I think your decision to be discharged home when you still need assistance to dress, go from sitting to standing and to pivot on and off the bedside commode is ill advised. In my opinion you should be going to a care home facility until you are able to bear weight on the Left leg and arm. [facility] will not be able to provide you with the assistance you needed and you will be at risk for falls. 7. You have been getting a shot in the abdomen to prevent blood clots since you have been in rehab. I have converted you to a pill you will take once a day to prevent blood clots until you are walking again. the pill is called Xarelto. Call your family doctor if any unusual bleeding such as bleeding from the gums, blood from the anus, blood in the urine, nose bleeds, large bruises or bleeding from the vagina if female. 8. Good luck to you Mariah. If you have any questions after you leave the rehab unit please call my office at [phone]. 9. Unfortunately your insurance will not cover the Long acting Oxycontin and it is very expensive. MS Contin is also not covered by your insurance but, it is much less expensive so I transitioned you to MS Contin and gave you enough for [address] Madrigal may want to change the medications at your next visit. Discharge Orders/Prescriptions Prescriptions: New nicotine 14 mg/24 hr Patch 24 Hour 14 mg transdermal DAILY Qty: 14 RF: 0 Xarelto 10 mg tablet 10 mg PO DAILY Qty: 30 RF: 0 morphine [MS Contin] 15 mg tablet extended release 15 mg PO Q12H MDD 30 mg 14 Days Qty: 28 RF: 0 alprazolam 0.25 mg Tablet 0.25 mg PO BID PRN PRN (Reason: panic attack) Qty: 0 RF: 0 Continued sennosides-docusate sodium [Stool Softener-Stimulant Laxat] 8.6-50 mg tablet 2 tab PO BID Qty: 120 RF: 0 clonazepam 1 mg tablet 1 mg PO Q12 Qty: 60 RF: 0 venlafaxine 150 mg capsule,extended release 24hr 150 mg PO DAILY Qty: 30 RF: 0 acetaminophen 500 mg tablet 1,000 mg PO Q8 Qty: 180 RF: 0 cholecalciferol (vitamin D3) 25 mcg (1,000 unit) tablet 25 mcg PO DAILY Qty: 30 RF: 0 Changed oxycodone 5 mg Tablet 5 mg PO Q4H PRN PRN (Reason: Pain Score 4-10) 7 Days Qty: 42 RF: 0 Discontinued bisacodyl 10 mg Suppository 10 mg MD DAILY PRN PRN (Reason: CONSTIPATION) Qty: 0 RF: 0 alprazolam 0.25 mg tablet 0.25 mg PO TID PRN (Reason: anxiety) Qty: 10 RF: 0 nicotine 21 mg/24 hr patch 24 hour 21 mg transdermal DAILY RF: 0 menthol-zinc oxide [Calmoseptine] 0.44-20.6 % ointment 1 applic topical BID RF: 0 sennosides-docusate sodium [Stool Softener-Stimulant Laxat] 8.6-50 mg Tablet 2 tab PO BID Qty: 0 RF: 0 alprazolam 0.25 mg Tablet 0.25 mg PO BID PRN PRN (Reason: panic attack) Qty: 0 RF: 0 nystatin [Nyamyc] 100,000 unit/gram powder 1 applic topical BID PRN (Reason: rash in intertrigenous area) Qty: 0 RF: 0 trazodone 50 mg tablet 50 - 100 mg PO QHS RF: 0 oxycodone [OxyContin] 10 mg tablet,oral only,ext.rel.12 hr 20 mg PO BID RF: 0 Referrals / Follow Up: [facility] [Other] (Call [phone] for appointment ) Saurabh Madrigal MD [STAFF PHYSICIAN] - 07/07/21 2:30 pm French Moss DO [STAFF PHYSICIAN] - Within 1 Month (Call and make an appointm ent for primary care physician ) Den Mike DO [STAFF PHYSICIAN] - 06/25/21 3:00 pm Disposition Disposition (needs filled in before D/C Order can be placed): Home, Self Care
[2021-06-22] MEDS: ALPRAZolam 0.25 MG Tablet PO (14:27)
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
[2021-06-22 21:52] VITALS: BP 99/56; PULSE 61; RESP 16; TEMP 35.9; O2SAT 96
[2021-06-23] MEDS: oxyCODONE 5 MG Tablet PO ×3 (01:52→12:01)
--- NOTE | 2021-06-23 04:27 | NURSING ---
Reviewed and agree with Jagdeep SHEPPARD on her assessment and handoff.
[2021-06-23] MEDS: Acetaminophen 500 MG Tablet 1000 MG PO ×2 (06:08→13:58)
[2021-06-23] MEDS: Enoxaparin 40 MG/0.4 ML Syringe SC (06:13)
--- NOTE | 2021-06-23 08:51 | CASEMGMT ---
Addendum entered by Zunilda Ingram 06/23/21 12:02: Spoke with Cinthya at [facility] [place]. Provided detailed report, per request, of medical and psychological diagnoses, safety concerns returning home with pt and . 's physical and cognitive deficits. Explained no [facility] agency can accept pt, the denial of referral to outpatient therapy, not pursued contacting any nonskilled [facility] agencies to assist and have provided transportation resources to use at home for appts. Provided hx of benzodiazepine use and pain pills from friends. IDT recommended SNF, but pt did not entertain option and adamant about returning home. Cinthya appreciative of information and understand concerns. Original Note: Social Work Left message with Cinthya at [facility] to make referral. SILVIA Diamond
[2021-06-23 08:59] VITALS: BP 113/61; PULSE 61; RESP 18; TEMP 36.4; O2SAT 94
[2021-06-23] MEDS: oxyCODONE HCl Cr 10 MG Tablet 20 MG PO (10:39)
[2021-06-23] MEDS: Venlafaxine XR 150 MG Capsule PO (10:42)
[2021-06-23] MEDS: Senna/Docusate Sodium 1 Tablet 2 TABLET PO (10:43)
[2021-06-23] MEDS: Cholecalciferol (VIT D3) 25 MCG TABLET (1,000 UNITS) PO (10:43)
[2021-06-23] MEDS: clonazePAM 1 MG Tablet PO (10:43)
[2021-06-23] MEDS: Nystatin Powder 15gm Bottle 1 APPLIC TOPICAL (10:44)
--- NOTE | 2021-06-23 15:02 | NURSING ---
pt discharged home via ambulance transport. denies questions or concerns with discharge material. medications sent with patient in belongings.
== END 2021-06-23 14:15 | disposition home or self-care (01) | DRG 313 ==
PROVIDERS: Admitting Provider Internal Medicine; Visit Provider Internal Medicine
DX: S82.852A Displaced trimalleolar fracture of left lower leg, initial encounter for closed fracture (principal); L89.522 Pressure ulcer of left ankle, stage 2; E11.9 Type 2 diabetes mellitus without complications; J44.9 Chronic obstructive pulmonary disease, unspecified; F60.3 Borderline personality disorder; E78.5 Hyperlipidemia, unspecified; E55.9 Vitamin D deficiency, unspecified; M19.90 Unspecified osteoarthritis, unspecified site; G43.909 Migraine, unspecified, not intractable, without status migrainosus; W10.9XXA Fall (on) (from) unspecified stairs and steps, initial encounter; S52.572A Other intraarticular fracture of lower end of left radius, initial encounter for closed fracture; S52.202A Unspecified fracture of shaft of left ulna, initial encounter for closed fracture; M54.9 Dorsalgia, unspecified; F32.A Depression, unspecified; F41.0 Panic disorder [episodic paroxysmal anxiety]; F43.12 Post-traumatic stress disorder, chronic; E66.9 Obesity, unspecified; G89.29 Other chronic pain; Z87.891 Personal history of nicotine dependence; Z68.32 Body mass index [BMI] 32.0-32.9, adult; Z79.899 Other long term (current) drug therapy; Y93.9 Activity, unspecified; Y99.9 Unspecified external cause status; Y92.9 Unspecified place or not applicable
CPT/HCPCS: 36415; 80053; 83735; 84100; 85027; 97110; 97162; 97166; 97530; 97535; 97802; 99251; 99406; G0463

== ENCOUNTER 2021-09-08 13:37 | Day surgery (SDC) | payer MEDICAID, SELFPAY ==
--- NOTE | 2021-09-08 13:49 | RAD_ITS ---
INDICATION: PREOP EXAMINATION/TECHNIQUE: X-RAY - XR Chest 2 Views COMPARISON: 05/14/2021. FINDINGS: LINES/DEVICES: None. LUNGS: Peribronchial cuffing bilateral hilar prominence is seen, mild prominence of the bronchovascular interstitial lung markings is visualized but no evidence of focal lung infiltrate or consolidation is seen. No evidence of pneumothorax, pleural effusion or or parenchymal lung mass. MEDIASTINUM AND CARDIOVASCULAR STRUCTURES: Cardiac silhouette not enlarged. BONES AND SOFT TISSUES: Mild degenerative bone changes. RAD/Chest PA and Lateral IMPRESSION: Bronchovascular prominence but no evidence of focal lung infiltrate or consolidation is seen Electronically Signed: Abundio Chappell MD at 15:04 EDT Reading Location ID and State: [facility] / [place] Tel , Service support ,
[2021-09-08 14:36] VITALS: BP 105/53; PULSE 84; RESP 16; TEMP 36.5; O2SAT 99; BMI 32.4
[2021-09-08] MEDS: Lactated Ringers 1,000 ML 15 ML IV (14:49)
--- NOTE | 2021-09-08 15:03 | HP.PCM_ITS ---
HPI - General HPI Narrative SALAZAR ROTHMAN, is a 61 F who presents for removal of a left wrist dorsal spanning plate. The surgery was performed on 05/16/2021 after a fall approximately 10 days prior. She also sustained a left ankle trimalleolar fracture dislocation which required external fixation on the same day as the wrist surgery and subsequent ORIF 06/10/2021. Fracture has since healed in her left wrist and she presents today for planned removal. She denies any numbness or tingling in her left upper extremity. She is anxious about removal of the plate. She continues with pain in her left wrist and left ankle. Patient lives at home with her . [facility] Medical History (Updated 09/07/21 @ 09:30 by Brianna Du) Anemia Borderline personality disorder Brain aneurysm Chronic back pain Chronic post-traumatic stress disorder Fall Fistula Fracture of metatarsal bone of right foot Generalized anxiety disorder with panic attacks History of ankle fracture History of depression History of edema History of hepatitis B Migraines Non-compliance Osteoarthritis Scaphoid fracture, wrist, closed Shortness of breath on exertion Smoker Uses wheelchair Vitamin D deficiency Wears dentures Home Medications acetaminophen 1,000 mg PO Q8 #180 tab 06/22/21 [Rx Last Taken Unknown] alprazolam 0.25 mg PO PRN PRN 09/08/21 [History Last Taken 09/08/21 11:00] oxycodone 5 mg PO Q4H PRN 7 Days #42 tab 09/08/21 [Rx Last Taken Unknown] Allergy/AdvReac Type Severity Reaction Status Date / Time ibuprofen Allergy Rash Verified 09/08/21 14:34 Sulfa (Sulfonamide Allergy Unknown Verified 09/08/21 14:34 Antibiotics) Family History Mother Breast cancer Cancer bone Anxiety and depression Grandmother Breast cancer Hypertension Father Cancer oral Myocardial infarction Alcoholism Daughter Autism Daughter Bipolar 1 disorder Surgical History History of History of cholecystectomy History of colonoscopy with polypectomy History of open reduction and internal fixation (ORIF) procedure Status post open reduction and internal fixation (ORIF) of fracture Status post open reduction and internal fixation (ORIF) of fracture Status post ORIF of fracture of ankle Social History Tobacco: How many years used: 40 how long ago did patient quit smokin05/14/21....stopped due to admission to the hospital counseling given: provider counseling alcohol intake: former details: no longer drinks at all. Denies any hx of illicit drug use substance use type: does not use what type of physical activity do you participate in: none ROS ROS Narrative 12 point review systems obtained negative unless otherwise noted HPI. Vital Signs Vital Signs Vital Signs: 09/08/21 14:36 Temperature 97.7 F L Temperature Source Temporal Pulse Rate 84 Respiratory Rate 16 Respiratory Pattern Normal Blood Pressure 105/53 L Blood Pressure Mean 70 Blood Pressure Source Monitor Blood Pressure Position Semi-Fowlers Blood Pressure Location Right Arm Pulse Ox 99 Oxygen Delivery Method Room Air Weight Weight: 207 lb Body Mass Index (BMI) 32.4 Physical Exam Narrative General -A&Ox3, NAD, appears stated age. Vital signs stable, afebrile. Respiratory -normal work of breathing, no intercostal retractions. CV -pulses regular, brisk capillary refill ?4 limbs. Abdomen-soft, nontender, nondistended. No guarding, rigidity, rebound tenderness. Musculoskeletal/neurologic -left upper extremity: Incisions well-healed left wrist. Nontender throughout. Cardinal motions of the hand are intact. Wrist capillary refill in the fingertips and radial pulse 2+. Full range of motion of the fingers. No active or passive range of motion of the wrist. Compartments soft and compressible. Results Lab / Micro Data Micro: Microbiology 09/08/21 14:20 Nasal Secretion SARS-CoV-2 Antigen (Rapid) - Final Assessment & Plan Assessment/Plan (1) Fracture of left radius and ulna: QUALIFIERS: Encounter type: subsequent encounter PLAN: Plan to proceed with surgery today for removal of plate left wrist. Informed consent obtained in the outpatient setting. All questions answered to the patient's satisfaction today. Plan for discharge home following surgery.
--- NOTE | 2021-09-08 15:25 | RAD_ITS ---
HISTORY: REMOVAL OF HARDWARE. TECHNIQUE: XR Wrist 2 Views. Spot images: 2. Number of images including paperwork: 3. COMPARISON: 06/01/2021. FINDINGS: OSSEOUS STRUCTURES: Cortical plate and screw removal. Fractures of the distal radius and ulna again seen. RAD/Wrist 2 Views IMPRESSION: Hardware removal from the left wrist. Please refer to procedure note. at 1651 Reported and signed by: Florence Damon MD Electronically Signed: Florence Damon MD at 16:50 EDT ,
[2021-09-08] MEDS: Cefazolin 2 GM in 0.9% Normal Saline 100 ML IV (15:30)
[2021-09-08] MEDS: Bupivacaine 0.5% PF 10 ML VIAL (16:39)
--- NOTE | 2021-09-08 16:43 | OP.PCM_ITS ---
Report of Operation Date of Procedure: 09/08/21 Description of Surgical Findings:: Preoperative diagnosis: Retained orthopedic hardware left wrist Postoperative diagnosis: Retained orthopedic hardware left wrist Procedure: Removal of dorsal spanning left wrist plate Surgeon: Den Mike DO Numerical Control Tool Programmer: Nila Zamudio PA-C Anesthesia: General LMA Anesthesiologist: Dr. Alexander Complications: None apparent Drains: None Estimated blood loss: 30 cc Urinary output:none recorded IV fluids: Per anesthesia record Specimens: None Surgical implants: None Explants: Arden Variax 3.5 mm plate, 6 screws Surgical indications: Patient underwent left distal radius dorsal spanning plate 05/16/2021 after a fall down a flight of stairs. Fracture healed uneventfully. She was scheduled for surgical removal of the dorsal spanning plate to initiate wrist motion. Informed consent obtained in the outpatient setting. Description of procedure: Patient was seen in preoperative holding area. She was identified by name, medical record number, date of . The operative extremity was marked with a surgical marker. We confirmed informed consent with the patient and all questions were answered to her satisfaction. At time of her procedure, patient was brought to the operative suite and posi tioned supine on a standard operating table. All bony prominences were well- padded. General anesthesia was administered. We then spun the bed 90 degrees. We prepped and draped the operative extremity in a normal, sterile orthopedic fashion. We then performed a timeout with all parties in attendance in agreement the side, site, and operation be performed. No concerns were voiced and we elected to proceed. 2 g was administered for antibiotic prophylaxis prior to the incision by anesthesia staff. I then marked prior incisions along the bare area of the dorsal radius in the mid forearm and dorsal second metacarpal. Prior incisions were then reopened with a 15 blade scalpel. I bluntly dissected through the subcutaneous tissue down to the level of the plate. Screws were exposed bluntly. Screws were removed. Plate was then elevated from bone utilizing a freer elevator. A Drake was used to retrieve the plate out the distal incision and removed from the wound entirely. Final fluoroscopic images were obtained demonstrated a well-healed distal radius and ulna fracture as well as complete removal of orthopedic hardware. Wounds were copiously irrigated with normal saline solut ion. Tumescent field blocks were administered with 20 cc total 0.5% plain bupivacaine. Dermis was reapproximated with buried 3-0 Vicryl suture. Skin was then closed with running 4-0 Monocryl subcuticular suture and Dermabond. A bulky sterile compression dressing was applied. Patient's wrist brace was then reapplied. Patient was safely extubated the operative suite and transferred to a gurney and subsequently to PACU in stable condition. Post Operative Plan: Weightbearing: Weightbearing less than 3 pounds operative extremity Antibiotics: 2 g Ancef x 1 dose preoperatively DVT Prophylaxis: None indicated [place]: None Dressing: Maintain dressing x3 days, then okay to shower. Wrist brace to be worn except for hygiene. X-Rays: None Pain Medication: Oxycodone prescription provided. Follow-up: 2 weeks post-operatively with me in the office
--- NOTE | 2021-09-08 16:43 | PCM.DC ---
Discharge Instructions Follow Up Care Test Results: Test results from this visit will be discussed in further detail at your follow-up appointment, if applicable. Discharge Plan Admission Primary Reason for Your Visit: Hardware removal Attending Provider: Den Mike Primary Care Provider: Care Physician,No Primary Instructions Additional Instructions / Restrictions: Follow preprinted instructions from your surgeons office. Discharge Orders/Prescriptions Prescriptions: New oxycodone 5 mg tablet 5 mg PO Q4H PRN (Reason: pain) 7 Days Qty: 42 RF: 0 No Action acetaminophen 500 mg tablet 1,000 mg PO Q8 Qty: 180 RF: 0 alprazolam 0.25 mg tablet 0.25 mg PO PRN PRN (Reason: Anxiety) RF: 0 Referrals / Follow Up: Den Mike DO [STAFF PHYSICIAN] - 09/24/21 Care Physician,No Primary [Primary Care Provider] - Disposition Disposition (needs filled in before D/C Order can be placed): Home, Self Care
[2021-09-08 17:01] VITALS: BP 102/51; BP 105/53; PULSE 88; RESP 16; TEMP 36.5; O2SAT 93
[2021-09-08 17:15] VITALS: BP 104/60; BP 105/53; PULSE 81; RESP 16; O2SAT 94
[2021-09-08 17:30] VITALS: BP 105/53; BP 106/52; PULSE 74; RESP 16; O2SAT 96
[2021-09-08 17:44] VITALS: BP 105/53; BP 113/66; PULSE 76; RESP 18; TEMP 36.8; O2SAT 97
[2021-09-08] MEDS: oxyCODONE 5 MG Tablet PO (17:52)
[2021-09-08 18:11] VITALS: BP 105/53; BP 118/64; PULSE 75; RESP 18; TEMP 37.1; O2SAT 93
== END 2021-09-08 18:21 | disposition home or self-care (01) ==
LOC: SDC 13:40 → AC 13:40
PROVIDERS: Referring Provider Student in an Organized Health Care Education/Training Program; Visit Provider Student in an Organized Health Care Education/Training Program
PROC: (CPT 20680; principal; 2021-09-08 14:45)
DX: S52.572D Other intraarticular fracture of lower end of left radius, subsequent encounter for closed fracture with routine healing (principal); F60.3 Borderline personality disorder; S52.202D Unspecified fracture of shaft of left ulna, subsequent encounter for closed fracture with routine healing; F43.10 Post-traumatic stress disorder, unspecified; F32.A Depression, unspecified; G89.29 Other chronic pain; F41.1 Generalized anxiety disorder; M19.90 Unspecified osteoarthritis, unspecified site; F17.200 Nicotine dependence, unspecified, uncomplicated; S82.852D Displaced trimalleolar fracture of left lower leg, subsequent encounter for closed fracture with routine healing
CPT/HCPCS: 20680; 71046; 73100; 76000; 87426; J7120; J2405